=== PATIENT | male | born 1995 | race Caucasian/White ===

== ENCOUNTER → 2018-11-12 | Outpatient (CLI) | payer OTHER ==
--- NOTE | 2018-11-12 13:28 | XR ---
EXAMINATION TYPE: XR facial bones complete DATE OF EXAM: 11/12/2018 COMPARISON: NONE HISTORY: 23-year-old male with facial pain from fall G50.1/M25.521 TECHNIQUE: 3 views FINDINGS: Orbits appear symmetric. Minimal leftward deviation of the nasal septum. The frontal, ethmoid, spheno id sinuses appear well-pneumatized. No layering fluid within the maxillary sinuses. Mandible appears intact. No nasal bone fracture seen on the left lateral view. IMPRESSION: No radiographically apparent acute facial bone fracture. If persistent clinical concern, CT facial gigi jocy can be considered.
--- NOTE | 2018-11-12 13:38 | XR ---
EXAMINATION TYPE: XR Hip Complete LT DATE OF EXAM: 11/12/2018 COMPARISON: 01/17/2015 HISTORY: 23-year-old male left hip pain after fall 2 days ago TECHNIQUE: 2 views FINDINGS: End-stage degenerative change at the left hip with flattening of the femoral head. Physical fixation across the intertrochanteric region and femoral neck is unchanged from 01/17/2015. No acute fracture is seen. IMPRESSION: End-stage left hip OA, unchanged from 01/09/2015. Redemonstrated collapse of the femoral head and 2 i ndwelling fixation screws.
== END | disposition home or self-care (01) ==
LOC: RADXRMAIN 10:13
PROVIDERS: ATTEND Physician Assistant
DX: M16.12 Unilateral primary osteoarthritis, left hip (principal); G50.1 Atypical facial pain; Z98.890 Other specified postprocedural states
CPT/HCPCS: 70150; 73502

== ENCOUNTER 2019-04-15 23:18 | Emergency (ER) | payer OTHER ==
[2019-04-15 23:25] VITALS: BP 131/88; PULSE 95; RESP 18; TEMP 98.2
--- NOTE | 2019-04-16 01:39 | XR ---
EXAMINATION TYPE: XR pelvis AP view DATE OF EXAM: 04/16/2019 COMPARISON: 11/12/2018 HISTORY: Hip pain TECHNIQUE: Single view FINDINGS: Pelvic ring is intact. There is deformity of the left femoral head with shallow acetabulum consistent with old hip dysplasia. Sacroiliac joints appear normal. I see no acute fracture. There is been removal of 2 pins in the intertrochanteric femur compared to last exam. IMPRESSION: Previous surgery. Old left-sided hip dysplasia. Severe flattening of the left femoral hea d unchanged.
[2019-04-16 02:16] LABS: Amphetamine Screen,Urine Not Detected (NotDetected); Barbiturate Screen,Urine Not Detected (NotDetected); Benzodiazepines Screen,Urine Detected (NotDetected); Cocaine Screen,Urine Not Detected (NotDetected); Methadone Screen, Urine Not Detected (NotDetected); Opiate Screen,Urine Not Detected (NotDetected); Oxycodone Screen, Urine Not Detected (NotDetected); Phencyclidine Screen,Urine Not Detected (NotDetected); Tricyclic Antidepressant,Urine Not Detected (NotDetected); Urn Cannabinoid Scrn Not Detected (NotDetected)
--- NOTE | 2019-04-16 04:07 | ED ---
Psych HPI - General Chief Complaint: Psychiatric Symptoms Stated Complaint: Mental Health Time Seen by Provider: 04/15/19 23:47 Source: patient, police Mode of arrival: ambulatory - History of Present Illness Initial Comments: Patient is 23-year-old man brought to have psychiatric evaluation. The patient reportedly had made some suicidal statements. At my evaluation, he is not forthcoming at all, refusing to discuss the events that have resulted in him being here. MD Complaint: suicidal ideation -: hour(s) Context: recent alcohol abuse - Related Data Home Medications Medication Instructions Recorded Confirmed Mirtazapine [Remeron] 30 mg PO HS 01/17/15 01/17/15 Previous Rx's Medication Instructions Recorded HYDROcodone/APAP 5-325MG [[place] 1 each PO Q6HR PRN #20 tab 01/17/15 5-325] Allergies Allergy/AdvReac Type Severity Reaction Status Date / Time adhesive tape Allergy Rash/Hives Verified 04/15/19 23:26 Review of Systems ROS Statement: Those systems with pertinent positive or pertinent negative responses have been documented in the HPI. ROS Other: All systems not noted in ROS Statement are negative. Limitations: ROS unobtainable due to patients medical condition (Patient uncooperative with history of physical) Constitutional: Denies: fever Respiratory: Denies: cough, dyspnea Cardiovascular: Denies: chest pain Gastrointestinal: Denies: abdominal pain, vomiting Musculoskeletal: Denies: back pain Neurological: Denies: headache Psychiatric: Reports: as per HPI, suicidal thoughts Past Medical History Additional Past Medical History / Comment(s): Pirthise disease Left hip History of Any Multi-Drug Resistant Organisms: None Reported Additional Past Surgical History / Comment(s): left hip Past Psychological History: Depression Smoking Status: Current every day smoker Past Alcohol Use History: Occasional Past Drug Use History: None Reported General Exam Limitations: no limitations General appearance: alert, in no apparent distress Head exam: Present: atraumatic, normocephalic Respiratory exam: Present: normal lung sounds bilaterally. Absent: respiratory distress, wheezes, rales, rhonchi, stridor Cardiovascular Exam: Present: regular rate, normal rhythm, normal heart sounds. Absent: systolic murmur, diastolic murmur, rubs, gallop GI/Abdominal exam: Present: soft. Absent: distended, tenderness, guarding, rebound, rigid, mass Extremities exam: Present: normal inspection, normal capillary refill Neurological exam: Present: alert, normal gait Psychiatric exam: Present: other (Patient is not cooperative with the psychiatric exam) Skin exam: Present: warm, dry, intact, normal color. Absent: rash Course Vital Signs 04/15/19 23:21 Temperature 98.2 F Pulse Rate 95 Respiratory 18 Rate Blood Pressure 131/88 O2 Sat by Pulse 99 Oximetry Procedures - Restraint - Face to Face Restraint Occurrence 1 Patient's Immediate Situation: Endangers self safety Patient's Reaction to the Intervention: Uncooperative, Angry, Suspicious Patient's Medical & Behavioral Condition: Awake, Alert, Agitated, Suicidal thoughts Need to Continue or Terminate Restraint or Seclusion: Continue Face to Face Eval of Restraint Date: 04/16/19 Face to Face Eval of Restraint Time: :25 Medical Decision Making - Medical Decision Making As the patient became sober he was more forthcoming and participating in the history and physical with the EPS nurse. Patient is luis miguel for safety and will return here should his mood worse. Denying suicidality. - Lab Data Lab Results 04/16/19 Range/Units 01:45 Urine Opiates Screen Not Detected (NotDetected) Ur Oxycodone Screen Not Detected (NotDetected) Urine Methadone Screen Not Detected (NotDetected) Ur Propoxyphene Screen Not Detected (NotDetected) Ur Barbiturates Screen Not Detected (NotDetected) U Tricyclic Antidepress Not Detected (NotDetected) Ur Phencyclidine Scrn Not Detected (NotDetected) Ur Amphetamines Screen Not Detected (NotDetected) U Methamphetamines Scrn Not Detected (NotDetected) U Benzodiazepines Scrn Detected H (NotDetected) Urine Cocaine Screen Not Detected (NotDetected) U Marijuana (THC) Screen Not Detected (NotDetected) Disposition Clinical Impression: Alcohol intoxication, Mood disorder Disposition: HOME SELF-CARE Condition: Good Instructions (If sedation given, give patient instructions): Mood Disorders (ED) Is patient prescribed a controlled substance at d/c from ED?: No Referrals: Louie Lyle Jr, DO [Primary Care Provider] - 1-2 days
[2019-04-16] MEDS ORDERED: clonazePAM 0.5 MG TAB PO STA (05:04)
== END 2019-04-16 05:48 | disposition home or self-care (01) ==
LOC: EC 23:18
DX: F10.129 Alcohol abuse with intoxication, unspecified (principal); F32.9 Major depressive disorder, single episode, unspecified; R45.1 Restlessness and agitation; R45.851 Suicidal ideations; F17.200 Nicotine dependence, unspecified, uncomplicated; Z91.048 Other nonmedicinal substance allergy status; Z79.899 Other long term (current) drug therapy
CPT/HCPCS: 72170; 80306; 82075; 99285

== ENCOUNTER → 2019-04-22 | Outpatient (CLI) | payer BC ==
--- NOTE | 2019-04-22 13:08 | XR ---
EXAMINATION TYPE: XR Hip Complete LT DATE OF EXAM: 04/22/2019 CLINICAL HISTORY: Left hip pain TECHNIQUE: AP and frogleg views of the left hip are obtained. COMPARISON: 04/16/2019. FINDINGS: There is deformity of the left femoral head with flattening and protuberant osteophyte form ation. Osteophytes are seen of the lateral femoral head neck junction, femoral head and greater troch anter. There is remodeling of the acetabulum and its roof and medial joint space narrowing. There is cephalad subluxation of the left hip. IMPRESSION: Extensive arthropathy of the left hip that could relate to avascular necrosis, early dege nerative arthropathy, trauma, or congenital causes. There is also cranial subluxation of the left fem oral acetabular joint. Findings are similar to the prior exam.
== END | disposition home or self-care (01) ==
LOC: RADXRMAIN 12:35
PROVIDERS: ATTEND Nurse Practitioner Family
DX: M16.12 Unilateral primary osteoarthritis, left hip (principal); S73.002A Unspecified subluxation of left hip, initial encounter
CPT/HCPCS: 73502

== ENCOUNTER → 2019-07-31 | Outpatient (CLI) | payer BC, OTHER ==
[2019-07-31 14:03] LABS: Basophils # (A) 0.1 k/uL (0-0.2); Basophils % (A) 1 %; Eosinophils # (A) 0.2 k/uL (0-0.7); Eosinophils % (A) 2 %; HCT 43.9 % (39.0-53.0); HGB 13.9 gm/dL (13.0-17.5); Lymphocytes # (A) 1.8 k/uL (1.0-4.8); Lymphocytes % (A) 24 %; MCH 29.1 pg (25.0-35.0); MCHC 31.6 g/dL (31.0-37.0); MCV 92.3 fL (80.0-100.0); Mean Platelet Volume 7.4; Monocytes # (A) 0.3 k/uL (0-1.0); Monocytes % (A) 4 %; Neutrophils % (A) 67 %; Platelet Count 329 k/uL (150-450); RBC 4.76 m/uL (4.30-5.90); RDW 12.8 % (11.5-15.5); WBC 7.4 k/uL (3.8-10.6)
[2019-07-31 22:43] LABS: African American GFR (CKD) 143.9 (60.0-200.0); Albumin 4.5 g/dL (3.80-4.90); Anion Gap 5.6 mmol/L (4.00-12.00); BUN/Creat Ratio 13.75 Ratio (12.00-20.00); Calcium 9.5 mg/dL (8.7-10.3); Carbon Dioxide 27.4 mmol/L (21.6-31.8); Non-African American GFR(CKD) 124.2 (60.0-200.0); Potassium 4.6 mmol/L (3.5-5.5)
[2019-08-01 04:40] LABS: Hemoglobin A1C 5.4 % (4.0-6.0)
== END | disposition home or self-care (01) ==
LOC: LABWHC1 12:49
PROVIDERS: ATTEND Orthopaedic Surgery
DX: Z01.818 Encounter for other preprocedural examination (principal); Z13.1 Encounter for screening for diabetes mellitus; M12.9 Arthropathy, unspecified; E55.9 Vitamin D deficiency, unspecified; D64.9 Anemia, unspecified
CPT/HCPCS: 36415; 80048; 82040; 82652; 83036; 85025; 87070

== ENCOUNTER 2020-09-13 13:15 | Emergency (ER) | payer BC, MEDICAID, OTHER ==
[2020-09-13 13:22] VITALS: TEMP 98.3
[2020-09-13] MEDS ORDERED: SODIUM CHLORIDE 0.9% 1,000 ML IV STA (13:29)
[2020-09-13] MEDS ORDERED: LORazepam 2 MG/ML INJ IV PRN ×3 (13:42)
[2020-09-13] MEDS ORDERED: THIAMINE 100 MG/ML 2 ML VIAL IM STA (13:42)
[2020-09-13 13:58] LABS: Basophils # (A) 0.1 k/uL (0-0.2); Basophils % (A) 1 %; Eosinophils % (A) 1 %; HCT 48.1 % (39.0-53.0); HGB 16.7 gm/dL (13.0-17.5); Lymphocytes # (A) 0.4 k/uL (1.0-4.8); Lymphocytes % (A) 7 %; MCH 33.6 pg (25.0-35.0); MCHC 34.7 g/dL (31.0-37.0); MCV 96.7 fL (80.0-100.0); Mean Platelet Volume 9.6; Monocytes # (A) 0.3 k/uL (0-1.0); Monocytes % (A) 5 %; Neutrophils # (A) 5.6 k/uL (1.3-7.7); Neutrophils % (A) 86 %; RBC 4.97 m/uL (4.30-5.90); RDW 12.7 % (11.5-15.5); WBC 6.4 k/uL (3.8-10.6)
[2020-09-13] MEDS: THIAMINE 100 MG TAB PO SCH ×2 (13:59→14:01)
[2020-09-13 14:10] VITALS: RESP 20
[2020-09-13 14:13] LABS: ALT 283 U/L (4-49); Acetaminophen <10.0 ug/mL; African American GFR (CKD) >90 (>60 ml/min/1.73 sqM); Albumin 5.1 g/dL (3.5-5.0); Alkaline Phosphatase 119 U/L (38-126); Anion Gap 16 mmol/L; Blood Urea Nitrogen 8 mg/dL (9-20); Calcium 10.4 mg/dL (8.4-10.2); Carbon Dioxide 27 mmol/L (22-30); Chloride 91 mmol/L (98-107); Glucose 144 mg/dL (74-99); Non-African American GFR(CKD) >90 (>60 ml/min/1.73 sqM); Potassium 3.7 mmol/L (3.5-5.1); Salicylate <1.0 mg/dL; Sodium 134 mmol/L (137-145); Total Bilirubin 2.6 mg/dL (0.2-1.3); Total Protein 8.1 g/dL (6.3-8.2)
[2020-09-13 14:17] LABS: Amorphous Sediment,Urine Rare /hpf; Appearance,Urine Turbid (Clear); Bilirubin,Urine 1+ (Negative); Blood,Urine Small (Negative); Color,Urine Dark Brown; Glucose,Urine (UA) Negative (Negative); Granular Casts,Urine 5 /lpf (0); Hyaline Casts,Urine 24 /lpf (0-2); Ketones,Urine 2+ (Negative); Leukocyte Esterase,Urine Negative (Negative); Mucus,Urine Many /hpf; Nitrite,Urine Negative (Negative); Protein,Urine 3+ (Negative); RBC,Urine 7 /hpf (0-5); Specific Gravity,Urine 1.027 (1.001-1.035); Squamous Epithelial Cell,Urine 1 /hpf (0-4); Urobilinogen,Urine >12.0 mg/dL (<2.0); WBC,Urine 4 /hpf (0-5)
[2020-09-13 14:22] LABS: Amphetamine Screen,Urine Not Detected (NotDetected); Barbiturate Screen,Urine Not Detected (NotDetected); Benzodiazepines Screen,Urine Not Detected (NotDetected); Cocaine Screen,Urine Not Detected (NotDetected); Methadone Screen, Urine Not Detected (NotDetected); Opiate Screen,Urine Not Detected (NotDetected); Oxycodone Screen, Urine Not Detected (NotDetected); Phencyclidine Screen,Urine Not Detected (NotDetected); Tricyclic Antidepressant,Urine Not Detected (NotDetected); Urn Cannabinoid Scrn Detected (NotDetected)
[2020-09-13 14:25] LABS: AST 804 U/L (17-59)
[2020-09-13] MEDS ORDERED: LORazepam 2 MG/ML INJ IV STA (14:29)
[2020-09-13 14:31] LABS: Platelet Count 93 k/uL (150-450)
[2020-09-13] MEDS ORDERED: levETIRAcetam IV 1,000 MG in SALINE 1 100ML.BAG IVPB STA (14:40)
--- NOTE | 2020-09-13 15:16 | CT ---
EXAMINATION TYPE: CT brain wo con DATE OF EXAM: 09/13/2020 COMPARISON: None HISTORY: Seizure activity. CT DLP: 1115.[address] of the brain was performed. The ventricles, basal cisterns and sulci overlying the cerebral convexities demonstrate a normal appe arance. There is no evidence for intracranial hemorrhage or sulcal effacement. No mass effects are seen. Osseous calvarium is intact. If symptoms persist consider MRI as clinically warranted. IMPRESSION: 1. No acute intracranial process is seen at this time.
--- NOTE | 2020-09-13 15:43 | ED ---
Seizure HPI - General Chief Complaint: Seizure Stated Complaint: seizure Time Seen by Provider: 09/13/20 13:24 Source: patient, RN notes reviewed Mode of arrival: ambulatory Limitations: no limitations - History of Present Illness Initial Comments: Patient is a 25-year-old male that presented to the emergency department status post new-onset seizure. He notes his girlfriend witnessed him having full body shakes loss of consciousness. He did note that he was foggy for several minutes after coming to. He notes that he is an alcoholic and drinks approximately a pint to a fifth of alcohol per day. He denied any history of seizures or intracranial issues. He was otherwise a well-appearing 25-year-old male in no apparent distress or pain. He denied any chest pain short of breath headache nausea vomiting diarrhea constipation fever fatigue chills. - Related Data Previous Rx's Medication Instructions Recorded levETIRAcetam [Keppra Xr] 500 mg PO DAILY 7 Days #7 tab 09/13/20 Allergies Allergy/AdvReac Type Severity Reaction Status Date / Time adhesive tape Allergy Rash/Hives Verified 09/13/20 14:01 Review of Systems ROS Statement: Those systems with pertinent positive or pertinent negative responses have been documented in the HPI. ROS Other: All systems not noted in ROS Statement are negative. Past Medical History Additional Past Medical History / Comment(s): Pirthise disease Left hip History of Any Multi-Drug Resistant Organisms: None Reported Additional Past Surgical History / Comment(s): left hip Past Psychological History: Depression Smoking Status: Current every day smoker Past Alcohol Use History: Abuse, Daily Past Drug Use History: None Reported General Exam Limitations: no limitations General appearance: alert, in no apparent distress Head exam: Present: atraumatic, normocephalic, normal inspection Eye exam: Present: normal appearance, PERRL, EOMI. Absent: scleral icterus, conjunctival injection, periorbital swelling Neck exam: Present: normal inspection Respiratory exam: Present: normal lung sounds bilaterally. Absent: respiratory distress, wheezes, rales, rhonchi, stridor Cardiovascular Exam: Present: regular rate, normal rhythm, normal heart sounds. Absent: systolic murmur, diastolic murmur, rubs, gallop, clicks GI/Abdominal exam: Present: soft, normal bowel sounds. Absent: distended, tenderness, guarding, rebound, rigid Extremities exam: Present: normal inspection, full ROM, normal capillary refill. Absent: tenderness, pedal edema, joint swelling, calf tenderness Neurological exam: Present: alert, oriented X3 Psychiatric exam: Present: normal affect, normal mood Skin exam: Present: warm, dry, intact, normal color. Absent: rash Course Vital Signs 09/13/20 09/13/20 09/13/20 13:18 14:10 15:33 Temperature 98.3 F Pulse Rate 117 H 77 113 H Respiratory 16 20 20 Rate Blood Pressure 155/116 146/108 145/97 O2 Sat by Pulse 97 99 98 Oximetry Medical Decision Making - Medical Decision Making 25-year-old male with new onset seizure with a history of alcoholism. Labs, CT of the brain, EKG, cardiac exercise specialist, CIWA scale, Ativan per all withdrawal protocol ordered. Labs: Elevated glucose, elevated liver function, AST 804, AST 283 Urinalysis negative. Urine drug screen positive for THC. Patient did have a witnessed seizure and emergency department Ativan was given, 1000 mg of Keppra ordered. Case discussed with Dr. Mora, who said to consult Dr. Lyle to figure out if admission versus discharge. Dr. Lyle was consulted and stated that he will follow up with patient tomorrow in office and to start patient on 500 mg of Keppra. Covid test ordered per dad's request due to mom having cancer and going to chemoradiation. Covid negative. - Lab Data Result diagrams: 09/13/20 13:36 09/13/20 13:36 Lab Results 09/13/20 09/13/20 09/13/20 Range/Units 13:36 13:36 13:36 WBC 6.4 (3.8-10.6) k/uL RBC 4.97 (4.30-5.90) m/uL Hgb 16.7 (13.0-17.5) gm/dL Hct 48.1 (39.0-53.0) % MCV 96.7 (80.0-100.0) fL MCH 33.6 (25.0-35.0) pg MCHC 34.7 (31.0-37.0) g/dL RDW 12.7 (11.5-15.5) % Plt Count 93 L (150-450) k/uL MPV 9.6 Neutrophils % 86 % Lymphocytes % 7 % Monocytes % 5 % Eosinophils % 1 % Basophils % 1 % Neutrophils # 5.6 (1.3-7.7) k/uL Lymphocytes # 0.4 L (1.0-4.8) k/uL Monocytes # 0.3 (0-1.0) k/uL Eosinophils # 0.0 (0-0.7) k/uL Basophils # 0.1 (0-0.2) k/uL Manual Slide Review Performed RBC Morphology Normal Sodium 134 L (137-145) mmol/L Potassium 3.7 (3.5-5.1) mmol/L Chloride 91 L (98-107) mmol/L Carbon Dioxide 27 (22-30) mmol/L Anion Gap 16 mmol/L BUN 8 L (9-20) mg/dL Creatinine 0.72 (0.66-1.25) mg/dL Est GFR (CKD-EPI)AfAm >90 (>60 ml/min/1.73 sqM) Est GFR (CKD-EPI)NonAf >90 (>60 ml/min/1.73 sqM) Glucose 144 H (74-99) mg/dL Calcium 10.4 H (8.4-10.2) mg/dL Magnesium (1.6-2.3) mg/dL Total Bilirubin 2.6 H (0.2-1.3) mg/dL AST 804 H (17-59) U/L ALT 283 H (4-49) U/L Alkaline Phosphatase 119 (38-126) U/L Creatine Kinase (55-170) U/L Total Protein 8.1 (6.3-8.2) g/dL Albumin 5.1 H (3.5-5.0) g/dL Urine Color Dark Brown Urine Appearance Turbid (Clear) Urine pH 7.0 (5.0-8.0) Ur Specific [place] 1.027 (1.001-1.035) Urine Protein 3+ H (Negative) Urine Glucose (UA) Negative (Negative) Urine Ketones 2+ H (Negative) Urine Blood Small H (Negative) Urine Nitrite Negative (Negative) Urine Bilirubin 1+ H (Negative) Urine Urobilinogen >12.0 (<2.0) mg/dL Ur Leukocyte Esterase Negative (Negative) Urine RBC 7 H (0-5) /hpf Urine WBC 4 (0-5) /hpf Ur Squamous Epith Cells 1 (0-4) /hpf Amorphous Sediment Rare H (None) /hpf Hyaline Casts 24 H (0-2) /lpf Granular Casts 5 (0) /lpf Urine Mucus Many H (None) /hpf Salicylates <1.0 mg/dL Urine Opiates Screen Not Detected (NotDetected) Ur Oxycodone Screen Not Detected (NotDetected) Urine Methadone Screen Not Detected (NotDetected) Ur Propoxyphene Screen Not Detected (NotDetected) Acetaminophen <10.0 ug/mL Ur Barbiturates Screen Not Detected (NotDetected) U Tricyclic Antidepress Not Detected (NotDetected) Ur Phencyclidine Scrn Not Detected (NotDetected) Ur Amphetamines Screen Not Detected (NotDetected) U Methamphetamines Scrn Not Detected (NotDetected) U Benzodiazepines Scrn Not Detected (NotDetected) Urine Cocaine Screen Not Detected (NotDetected) U Marijuana (THC) Screen Detected H (NotDetected) Coronavirus (PCR) (Not Detectd) 09/13/20 09/13/20 Range/Units 13:36 16:20 WBC (3.8-10.6) k/uL RBC (4.30-5.90) m/uL Hgb (13.0-17.5) gm/dL Hct (39.0-53.0) % MCV (80.0-100.0) fL MCH (25.0-35.0) pg MCHC (31.0-37.0) g/dL RDW (11.5-15.5) % Plt Count (150-450) k/uL MPV Neutrophils % % Lymphocytes % % Monocytes % % Eosinophils % % Basophils % % Neutrophils # (1.3-7.7) k/uL Lymphocytes # (1.0-4.8) k/uL Monocytes # (0-1.0) k/uL Eosinophils # (0-0.7) k/uL Basophils # (0-0.2) k/uL Manual Slide Review RBC Morphology Sodium (137-145) mmol/L Potassium (3.5-5.1) mmol/L Chloride (98-107) mmol/L Carbon Dioxide (22-30) mmol/L Anion Gap mmol/L BUN (9-20) mg/dL Creatinine (0.66-1.25) mg/dL Est GFR (CKD-EPI)AfAm (>60 ml/min/1.73 sqM) Est GFR (CKD-EPI)NonAf (>60 ml/min/1.73 sqM) Glucose (74-99) mg/dL Calcium (8.4-10.2) mg/dL Magnesium 1.9 (1.6-2.3) mg/dL Total Bilirubin (0.2-1.3) mg/dL AST (17-59) U/L ALT (4-49) U/L Alkaline Phosphatase (38-126) U/L Creatine Kinase 100 (55-170) U/L Total Protein (6.3-8.2) g/dL Albumin (3.5-5.0) g/dL Urine Color Urine Appearance (Clear) Urine pH (5.0-8.0) Ur Specific [place] (1.001-1.035) Urine Protein (Negative) Urine Glucose (UA) (Negative) Urine Ketones (Negative) Urine Blood (Negative) Urine Nitrite (Negative) Urine Bilirubin (Negative) Urine Urobilinogen (<2.0) mg/dL Ur Leukocyte Esterase (Negative) Urine RBC (0-5) /hpf Urine WBC (0-5) /hpf Ur Squamous Epith Cells (0-4) /hpf Amorphous Sediment (None) /hpf Hyaline Casts (0-2) /lpf Granular Casts (0) /lpf Urine Mucus (None) /hpf Salicylates mg/dL Urine Opiates Screen (NotDetected) Ur Oxycodone Screen (NotDetected) Urine Methadone Screen (NotDetected) Ur Propoxyphene Screen (NotDetected) Acetaminophen ug/mL Ur Barbiturates Screen (NotDetected) U Tricyclic Antidepress (NotDetected) Ur Phencyclidine Scrn (NotDetected) Ur Amphetamines Screen (NotDetected) U Methamphetamines Scrn (NotDetected) U Benzodiazepines Scrn (NotDetected) Urine Cocaine Screen (NotDetected) U Marijuana (THC) Screen (NotDetected) Coronavirus (PCR) Not Detected (Not Detectd) - EKG Data -: EKG Interpreted by Me EKG shows normal: sinus rhythm Rate: normal EKG Comments: Ventricular rate 99 bpm, ND interval 144 ms, QRS duration 106 ms, QTC 467 ms, PRT axes 78/48/47. Normal sinus rhythm, normal ECG. - Radiology Data Radiology results: report reviewed, image reviewed CT of the brain: No acute intracranial process is seen at this time. Disposition Clinical Impression: New onset seizure Disposition: HOME SELF-CARE Condition: Stable Instructions (If sedation given, give patient instructions): Seizure/Epilepsy Discharge Instructions & Follow-Up Additional Instructions: Please return to the Emergency Department if symptoms worsen or any other concerns. Follow-up with primary care tomorrow. Take Keppra as prescribed. Patient is Covid negative. Prescriptions: levETIRAcetam [Keppra Xr] 500 mg PO DAILY 7 Days #7 tab Is patient prescribed a controlled substance at d/c from ED?: No Referrals: Hiro Snyder MD [Primary Care Provider] - 1-2 days Time of Disposition: 16:58
[2020-09-13 15:45] LABS: Magnesium 1.9 mg/dL (1.6-2.3)
[2020-09-13 17:12] VITALS: BP 139/102; PULSE 98
== END 2020-09-13 17:10 | disposition home or self-care (01) ==
LOC: EC 13:15 → 3MHU 16:05 → UNDOADMIN 16:05 → EC 17:10
DX: R56.9 Unspecified convulsions (principal); F17.200 Nicotine dependence, unspecified, uncomplicated
CPT/HCPCS: 36415; 93005; 80053; 82550; 83735; 85025; 81001; 80306; 80143; 87635; 80179; 70450; 96365; 96375; 96361; 99285; J2060; J1953

== ENCOUNTER 2021-02-26 02:19 | Inpatient (IN) | payer BC, OTHER ==
[2021-02-26] MEDS ORDERED: SODIUM CHLORIDE 0.9% 1,000 ML IV STA ×2 (02:32)
[2021-02-26] MEDS ORDERED: LORazepam 2 MG/ML INJ IV STA ×2 (02:32→04:03)
[2021-02-26] MEDS ORDERED: SODIUM CHLORIDE 0.9% 500 ML 500 ML IV STA (02:32)
--- NOTE | 2021-02-26 03:09 | ED ---
Alcohol HPI - General Chief Complaint: Alcohol Stated Complaint: Alcohol Withdrawal Time Seen by Provider: 02/26/21 02:32 Source: patient, family, RN notes reviewed, old records reviewed Mode of arrival: ambulatory Limitations: physical limitation - History of Present Illness Initial Comments: This is a 25-year-old male to the emergency room today. Patient is significantly fell. Patient is positive with shaking delirium tremors altered mental status poor story presents with father for significant alcohol withdrawal MD Complaint: alcohol withdrawal Last Drink: unknown (4) -: days(s) (4) Previous Visits for Alcohol Intoxication?: Yes Recent Trauma: No Associated Symptoms: diaphoresis, tremors, depression Treatments Prior to Arrival: none Chronic Alcohol Use: Yes - Related Data Home Medications Medication Instructions Recorded Confirmed No Known Home Medications 02/26/21 02/26/21 Allergies Allergy/AdvReac Type Severity Reaction Status Date / Time adhesive tape Allergy Rash/Hives Verified 02/26/21 08:25 Review of Systems ROS Statement: Those systems with pertinent positive or pertinent negative responses have been documented in the HPI. ROS Other: All systems not noted in ROS Statement are negative. Past Medical History Additional Past Medical History / Comment(s): Pirthise disease Left hip History of Any Multi-Drug Resistant Organisms: None Reported Past Surgical History: Hernia Repair Additional Past Surgical History / Comment(s): left hip Past Psychological History: Depression Smoking Status: Current every day smoker Past Alcohol Use History: Abuse, Daily Past Drug Use History: None Reported, Marijuana - Past Family History Father Family Medical History: Coronary Artery Disease (CAD) Mother Family Medical History: Cancer General Exam Limitations: altered mental status, physical limitation General appearance: alert, anxious, in distress Head exam: Present: atraumatic, normocephalic, normal inspection Eye exam: Present: normal appearance, PERRL, EOMI. Absent: scleral icterus, conjunctival injection, periorbital swelling ENT exam: Present: normal exam, mucous membranes moist Neck exam: Present: normal inspection. Absent: tenderness, meningismus, lymphadenopathy Respiratory exam: Present: normal lung sounds bilaterally. Absent: respiratory distress, wheezes, rales, rhonchi, stridor Cardiovascular Exam: Present: normal rhythm, tachycardia, normal heart sounds. Absent: systolic murmur, diastolic murmur, rubs, gallop, clicks GI/Abdominal exam: Present: soft, normal bowel sounds. Absent: distended, tenderness, guarding, rebound, rigid Extremities exam: Present: normal inspection, full ROM, normal capillary refill. Absent: tenderness, pedal edema, joint swelling, calf tenderness Back exam: Present: normal inspection Neurological exam: Present: alert, oriented X3, CN II-XII intact Psychiatric exam: Present: normal affect, normal mood Skin exam: Present: warm, dry, intact, normal color. Absent: rash Course Vital Signs 02/26/21 02/26/21 02/26/21 02:22 02:57 04:17 Temperature 99.2 F Pulse Rate 120 H 95 89 Pulse Rate [ Pulse Oximetery ] Respiratory 18 22 18 Rate Blood Pressure 167/108 156/106 139/109 Blood Pressure [Left Arm] O2 Sat by Pulse 98 95 95 Oximetry 02/26/21 02/26/21 02/26/21 05:54 07:36 08:00 Temperature 98.0 F Pulse Rate 103 H 96 Pulse Rate [ 97 Pulse Oximetery ] Respiratory 18 18 18 Rate Blood Pressure 152/117 138/93 Blood Pressure 140/90 [Left Arm] O2 Sat by Pulse 95 97 98 Oximetry 02/26/21 08:40 Temperature Pulse Rate 82 Pulse Rate [ Pulse Oximetery ] Respiratory 18 Rate Blood Pressure 139/98 Blood Pressure [Left Arm] O2 Sat by Pulse 98 Oximetry - Reevaluation(s) Reevaluation #1: Medical record is reviewed Patient symptoms are not significant improved Patient having escalating symptoms of withdrawal here in the ER requiring medication Patient informed of results and questions answered Medical Decision Making - Medical Decision Making 25 male with significant alcohol withdrawal DTs, delirious shaking tremor, patient will be admitted for symptomatic treatment - Lab Data Result diagrams: 02/26/21 02:54 02/26/21 02:54 Lab Results 02/26/21 02/26/21 Range/Units 02:54 02:54 WBC 14.2 H (3.8-10.6) k/uL RBC 4.78 (4.30-5.90) m/uL Hgb 16.4 (13.0-17.5) gm/dL Hct 47.6 (39.0-53.0) % MCV 99.6 (80.0-100.0) fL MCH 34.4 (25.0-35.0) pg MCHC 34.6 (31.0-37.0) g/dL RDW 14.8 (11.5-15.5) % Plt Count 214 (150-450) k/uL MPV 8.9 Neutrophils % 76 % Lymphocytes % 17 % Monocytes % 5 % Eosinophils % 0 % Basophils % 0 % Neutrophils # 10.8 H (1.3-7.7) k/uL Lymphocytes # 2.4 (1.0-4.8) k/uL Monocytes # 0.7 (0-1.0) k/uL Eosinophils # 0.1 (0-0.7) k/uL Basophils # 0.1 (0-0.2) k/uL Macrocytosis Slight Sodium 133 L (137-145) mmol/L Potassium 3.4 L (3.5-5.1) mmol/L Chloride 98 (98-107) mmol/L Carbon Dioxide 23 (22-30) mmol/L Anion Gap 12 mmol/L BUN 11 (9-20) mg/dL Creatinine 0.70 (0.66-1.25) mg/dL Est GFR (CKD-EPI)AfAm >90 (>60 ml/min/1.73 sqM) Est GFR (CKD-EPI)NonAf >90 (>60 ml/min/1.73 sqM) Glucose 123 H (74-99) mg/dL Calcium 10.0 (8.4-10.2) mg/dL Magnesium 1.7 (1.6-2.3) mg/dL Total Bilirubin 1.0 (0.2-1.3) mg/dL AST 117 H (17-59) U/L ALT 67 H (4-49) U/L Alkaline Phosphatase 67 (38-126) U/L Total Protein 7.8 (6.3-8.2) g/dL Albumin 4.9 (3.5-5.0) g/dL Lipase 457 H (23-300) U/L Serum Alcohol <10 mg/dL Critical Care Time Critical Care Time: Yes Total Critical Care Time: 31 Disposition Clinical Impression: Alcohol withdrawal delirium, Hypomagnesemia, Alcohol withdrawal syndrome Disposition: ADMITTED IP TO THIS [facility] Condition: Serious Is patient prescribed a controlled substance at d/c from ED?: No
[2021-02-26 03:32] LABS: Basophils # (A) 0.1 k/uL (0-0.2); Basophils % (A) 0 %; Eosinophils # (A) 0.1 k/uL (0-0.7); Eosinophils % (A) 0 %; HCT 47.6 % (39.0-53.0); HGB 16.4 gm/dL (13.0-17.5); Lymphocytes # (A) 2.4 k/uL (1.0-4.8); Lymphocytes % (A) 17 %; MCH 34.4 pg (25.0-35.0); MCHC 34.6 g/dL (31.0-37.0); MCV 99.6 fL (80.0-100.0); Macrocytosis Slight; Mean Platelet Volume 8.9; Monocytes # (A) 0.7 k/uL (0-1.0); Monocytes % (A) 5 %; Neutrophils # (A) 10.8 k/uL (1.3-7.7); Neutrophils % (A) 76 %; Platelet Count 214 k/uL (150-450); RBC 4.78 m/uL (4.30-5.90); RDW 14.8 % (11.5-15.5); WBC 14.2 k/uL (3.8-10.6)
[2021-02-26 04:00] LABS: ALT 67 U/L (4-49); AST 117 U/L (17-59); African American GFR (CKD) >90 (>60 ml/min/1.73 sqM); Albumin 4.9 g/dL (3.5-5.0); Alcohol <10 mg/dL; Alkaline Phosphatase 67 U/L (38-126); Anion Gap 12 mmol/L; Blood Urea Nitrogen 11 mg/dL (9-20); Carbon Dioxide 23 mmol/L (22-30); Chloride 98 mmol/L (98-107); Glucose 123 mg/dL (74-99); Lipase 457 U/L (23-300); Magnesium 1.7 mg/dL (1.6-2.3); Non-African American GFR(CKD) >90 (>60 ml/min/1.73 sqM); Potassium 3.4 mmol/L (3.5-5.1); Sodium 133 mmol/L (137-145); Total Protein 7.8 g/dL (6.3-8.2)
[2021-02-26] MEDS ORDERED: DIAZEPAM 5 MG/ML 2 ML INJ IVP STA (04:03)
[2021-02-26] MEDS ORDERED: DEXTROSE 5%-0.45% NACL 1,000 ML IV ONE (04:30)
[2021-02-26] MEDS ORDERED: MORPHINE SULFATE 4 MG/ML SYRINGE IV PRN (05:36)
[2021-02-26] MEDS ORDERED: THIAMINE 100 MG/ML 2 ML VIAL IM STA (05:36)
[2021-02-26] MEDS ORDERED: NALOXONE 0.4 MG/ML 1 ML VIAL IV PRN (05:36)
[2021-02-26] MEDS ORDERED: ONDANSETRON 4 MG/2 ML VIAL IVP PRN (05:36)
[2021-02-26] MEDS ORDERED: LORazepam 2 MG/ML INJ IV PRN (05:36)
[2021-02-26] MEDS: MAGNESIUM SULFATE-D5W PMX 1 GM in DEXTROSE/WATER 1 100ML.BAG IVPB SCH ×2 (05:47→10:37)
[2021-02-26] MEDS: POTASSIUM CHLORIDE 10 MEQ in WATER FOR INJECTION 1 100ML.BAG IVPB SCH ×5 (05:48→11:25)
[2021-02-26] MEDS: LORazepam 2 MG/ML INJ IV PRN ×14 (05:51→22:29)
[2021-02-26] MEDS: DIAZEPAM 5 MG/ML 2 ML INJ IVP SCH ×2 (07:30→12:14)
[2021-02-26 08:14] LABS: Appearance,Urine Clear (Clear); Bilirubin,Urine Negative (Negative); Blood,Urine Negative (Negative); Color,Urine Colorless; Glucose,Urine (UA) Negative (Negative); Ketones,Urine Negative (Negative); Leukocyte Esterase,Urine Negative (Negative); Nitrite,Urine Negative (Negative); Protein,Urine Negative (Negative); Specific Gravity,Urine 1.001 (1.001-1.035); Urobilinogen,Urine <2.0 mg/dL (<2.0)
[2021-02-26 08:24] LABS: Amphetamine Screen,Urine Not Detected (NotDetected); Barbiturate Screen,Urine Not Detected (NotDetected); Benzodiazepines Screen,Urine Not Detected (NotDetected); Cocaine Screen,Urine Not Detected (NotDetected); Methadone Screen, Urine Not Detected (NotDetected); Opiate Screen,Urine Not Detected (NotDetected); Oxycodone Screen, Urine Not Detected (NotDetected); Phencyclidine Screen,Urine Not Detected (NotDetected); Tricyclic Antidepressant,Urine Not Detected (NotDetected); Urn Cannabinoid Scrn Detected (NotDetected)
[2021-02-26] MEDS: NICOTINE 21MG/24HR PATCH TRANSDERM SCH (08:29)
[2021-02-26] MEDS: PANTOPRAZOLE 40 MG/10 ML VIAL IV SCH (10:37)
[2021-02-26] MEDS ORDERED: POTASSIUM CHLORIDE ER 20 MEQ TAB.ER PO STA (12:27)
--- NOTE | 2021-02-26 15:14 | P.HPIM ---
History of Present Illness H&P Date: 02/26/21 Chief Complaint: Active DTs The 25-year-old gentleman that presented to the ER with complaints of active DTs, positive night sweats,. States he is on Klonopin which he states is not helping him.Reports he drinks approximately 2 pints to 1-1/2 fifths of alcohol per day. Vague historian. Denies any syncope. Denies any lightheadedness dizziness or focal deficits. Lipase 457. Denies any nausea vomiting or diarrhea. Denies any abdominal pain. Denies any chest pain, palpitations or shortness of breath. Sodium 133, potassium 3.4, renal function stable, glucose 123 magnesium 0.7, total bili 1.0, AST 117, ALT 67 .Toxicology screen detected marijuana, serum alcohol less than 10 .Reports he also had a seizure while in the ER, ER report currently unavailable in EHR.received IV fluid hydration with CIWA protocol. Review of Systems ROS Statement: Those systems with pertinent positive or pertinent negative responses have been documented in the HPI. ROS Other: All systems not noted in ROS Statement are negative. 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 History of Any Multi-Drug Resistant Organisms: None Reported Past Surgical History: Hernia Repair, Joint Replacement, Orthopedic Surgery Additional Past Surgical History / Comment(s): Total L hip arthroplasty, multiple L hip surgeries, bilateral inguinal hernia repairs, nasal fracture with surgery. Past Anesthesia/Blood Transfusion Reactions: No Reported Reaction Smoking Status: Current every day smoker - Past Family History Father Family Medical History: Coronary Artery Disease (CAD) Mother Family Medical History: Cancer Medications and Allergies Home Medications Medication Instructions Recorded Confirmed Type No Known Home Medications 02/26/21 02/26/21 History Allergies Allergy/AdvReac Type Severity Reaction Status Date / Time adhesive tape Allergy Rash/Hives Verified 02/26/21 08:25 Physical Exam Vitals: Vital Signs Temp Pulse Pulse Resp BP BP Pulse Ox 02/26/21 09:30 131 H 18 02/26/21 08:40 82 18 139/98 98 02/26/21 08:00 98.0 F 97 18 140/90 98 02/26/21 07:36 96 18 138/93 97 02/26/21 05:54 103 H 18 152/117 95 02/26/21 04:17 89 18 139/109 95 02/26/21 02:57 95 22 156/106 95 02/26/21 02:22 99.2 F 120 H 18 167/108 98 Intake and Output 02/25/21 02/26/21 02/26/21 22:59 06:59 14:59 Other: Weight 134.6 kg 134.6 kg PHYSICAL EXAM: VITAL SIGNS: As above GENERAL: Sitting up in bed, active DTs, fidgety, tremors HEENT: Conjunctivae normal. eyes normal. Oral mucosa moist NECK: No JVD. No thyroid enlargement. No LNs CARDIOVASCULAR: S1, S2 regular.No murmur. RESPIRATION: Breath sounds diminished in the bases. No rhonchi or crackles. No b ronchial breathing. ABDOMEN: Soft, nontender. No guarding. no masses palpable.No ascites, No hepat osplenomegaly.Bowel sounds heard. LEGS: No edema. no swelling, no clubbing, no cyanosis. PSYCHIATRY: Alert and oriented X3, mood and affect normal. NERVOUS SYSTEM: Cranial N 2-12 grossly normal.Moves all 4 limbs.Diffuse tremors, pos. DTs. No focal deficits. Strength and sensation grossly intact. Skin: warm and dry, no rash Lymphatic system. No LN neck, axilla. Results CBC & Chem 7: 02/26/21 02:54 02/26/21 02:54 Labs: Abnormal Lab Results - Last 24 Hours (Table) 02/26/21 02/26/21 02/26/21 Range/Units 02:54 02:54 07:52 WBC 14.2 H (3.8-10.6) k/uL Neutrophils # 10.8 H (1.3-7.7) k/uL Sodium 133 L (137-145) mmol/L Potassium 3.4 L (3.5-5.1) mmol/L Glucose 123 H (74-99) mg/dL AST 117 H (17-59) U/L ALT 67 H (4-49) U/L Lipase 457 H (23-300) U/L U Marijuana (THC) Screen Detected H (NotDetected) Thrombosis Risk Factor Assmnt - Choose All That Apply Any of the Below Risk Factors Present?: Yes Each Factor Represents 1 point: Obesity (BMI >25) Other Risk Factors: No Other congenital or acquired thrombophilia - If yes, enter type in comment: No Thrombosis Risk Factor Assessment Total Risk Factor Score: 1 Thrombosis Risk Factor Assessment Level: Low Risk Assessment and Plan Assessment: Alcohol intoxication, DTs Reports seizure during the ER visit in a patient with History of Alcohol-induced seizures Alcohol dependence, on Klonopin Mood disorder Hyponatremia Hypokalemia Hypomagnesemia Plan: Continue on current medication regime ,monitoring and symptomatic treatment. CIWA protocol. Consider starting Naltrexone,psychiatry consult in place, recommendations pending. Prognosis guarded given multiple complex medical issues. The impression and plan of care has been dictated as directed. : I performed a history and examination of this patient, discussed the same with the dictator. I agree with the dictator's note ,documented as a scribe. Any additional findings or plans will be noted.
--- NOTE | 2021-02-26 15:17 | P.CN ---
Psychiatric Consult - . Consult date: 02/26/21 Consult:: 02/26/21 13:25 IDENTIFYING DATA: This patient is a 25-year-old male who is currently unemployed and lives with his girlfriend in a house has 1 kid REASON FOR REFERRAL: Psychiatry was consulted for alcohol use and withdrawal HISTORY OF PRESENT ILLNESS: The patient presented to the hospital initially for etoh w/d sx. Pt had elevated wbcs 14.2, sodium was at 133. AST and ALT was elevated at 117/67. Urine analysis was negative and UDS was positive for THC. Blood alcohol level was negative on admission. He was tachycardic on admission. Nurse taking care of patient claims that patient was started on valium and has been anxious and restless/pacing. Patient was seen today at the bedside and agreeable to speak with program writer. He appeared to be confused at times and intrusive aswell. He endorsed mild paranoia towards program writer and asked who invited him to his girlfriends house. He claims that he drinks "alot" approximately 1- 1.5 pints of vodka per day. He states that he was binge drinking for the past few months. He claims that his last drink was on monday and had a seizure early the next day. He claims that he has been struggling with etoh use since the age of 16. He claims that he has a hx of depression and anxiety and is mainly anxious at this time. He states that his sleep is poor and appetie is fair. He states that he does get confused at times and has been hallucinating, hearing voices and seeing visual disturbances in the room. He states that he has a hx of complicated w/d including seizures and tremors. At this time patient denies any suicidal or homical ideations, intent or plan. Patients admits to using etoh as noted above, smokes cannabis approx 1-2 joints/day and smokes cigarettes daily. PAST PSYCHIATRIC HISTORY: Patient has a a history of depression and anxiety along with etoh abuse. He states that he has tried prozac and zoloft in the past along with klonopin. Patient denies any previous psychiatric hospitalizations. He claims that he has seen several therapists and psychaitrists in the past and has also used to follow up with [facility]. Patient denies any history of suicide attempts in the past. PAST MEDICAL HISTORY: Pirthise disease Left hip ALLERGIES: as per EMR. CHEMICAL DEPENDENCY HISTORY: as per HPI. FAMILY PSYCHIATRIC/SUBSTANCE USE HISTORY: states there is a strong hx of etoh use in his family. SOCIAL HISTORY: Patient was born and raised in [place] and completed High school. He states that he currently lives with his girlfriend and her children. He has 1 daughter. He is currently unemployed. MENTAL STATUS EXAM: General Appearance: Patient appears to be thin, wearing a hat, stated age is alert, pleasant, and attempts to cooperative. intrusive at times. Patient appears to have fair hygiene and grooming wearing hospital gown with poor eye contact. Behavior: Patient is calmly lying in bed without any agitated behavior. restless at times. confused at times Speech: Patient's speech is fluent and nonpressured. Mood/Affect: Patient reports their mood is "mainly anxious", affect is congruent and confused at times Suicidality/Homicidality: Patient denies having any suicidal or homicidal ideation intent or plan. Perceptions: Patient admits to visual and auditory hallucinations. Though content/process: bizarre at times. endorsing some paranoia. Memory and concentration: AOX3, grossly intact for the purposes of this session. Can spell "WORLD" backwards Judgment and insight: poor IMPRESSIONS: Major depressive disorder, mild Alcohol use disorder, severe, currently in complicated withdrawal cannabis used disorder nicotine dependence PLAN: -At this time patient DOES NOT meet criteria for inpatient psychiatric admission. -Would recommend the following medication changes/additions: Started campral tid for etoh cravings, doxepin 10 mg qhs for insomnia/mood, increased valium 10 mg po tid for withdrawal. continue with ativan prn for w/d -CIWA protocol with PRN Ativan for alcohol withdrawal. Continue to monitor vital signs. -thiamine, FA and multivitamin -patient is refusing rehab at this time. -latex foam worker to provide patient with outpatient mental health/psychiatry resources for appropriate follow up upon discharge -Roll Over Loader spoke with patient about substance abuse and the harmful effects on medical and mental health, patient verbally understood and agreed. -latex foam worker to provide patient substance use treatment resources including AA/NA meetings in the community. -Communicated plan to patient's nurse -Will continue to follow along if requested -Please contact with any questions.
[2021-02-26] MEDS: FOLIC ACID 1 MG TAB PO SCH (16:14)
[2021-02-26] MEDS: ACAMPROSATE CALCIUM 333 MG TABLET.DR PO SCH ×2 (16:14→21:16)
[2021-02-26] MEDS: diazePAM 5 MG TAB PO SCH ×2 (16:14→21:15)
[2021-02-26] MEDS: MULTIVITAMINS, THERA 1 EACH TAB PO SCH (16:14)
[2021-02-26] MEDS: THIAMINE 100 MG TAB PO SCH (18:47)
[2021-02-26] MEDS: MAGNESIUM OXIDE 400 MG TAB PO SCH (21:17)
[2021-02-26] MEDS: DOXEPIN 10 MG CAP PO SCH ×2 (21:19→23:46)
[2021-02-27] MEDS: HALOPERIDOL LACTATE 5 MG/ML 1 ML VIAL IM SCH ×5 (00:30→03:27)
[2021-02-27] MEDS: LORAZEPAM IV SCH ×10 (01:34→21:51)
[2021-02-27] MEDS: DEXTROSE 5% IV SCH ×10 (01:34→21:51)
[2021-02-27] MEDS: WATER IV SCH ×10 (01:34→21:51)
[2021-02-27] MEDS ORDERED: propofoL 100 ML IV ONE (03:30)
--- NOTE | 2021-02-27 04:22 | XR ---
EXAMINATION TYPE: XR chest 1V DATE OF EXAM: 02/27/2021 COMPARISON: NONE HISTORY: Check tube placement TECHNIQUE: Single view FINDINGS: Endotracheal tube is 12 mm from the elio. Lungs are clear. There is no heart failure. The re is nasogastric tube in the stomach. Heart and mediastinum are normal. IMPRESSION: No cardiopulmonary disease. Endotracheal tube is low and should be pulled back 2 cm.
[2021-02-27 05:23] LABS: ABG HCO3 24 mmol/L (21-25); ABG PCO2 36 mmHg (35-45); ABG PH 7.42 (7.35-7.45); ABG PO2 278 mmHg (83-108); ABG TCO2 25 mmol/L (19-24); Allen Test Performed? Yes
[2021-02-27 05:36] LABS: Glucose,Whole Blood 122 mg/dL (75-99)
[2021-02-27 06:31] LABS: Basophils % (A) 0 %; Eosinophils % (A) 0 %; HCT 41.2 % (39.0-53.0); HGB 14.2 gm/dL (13.0-17.5); Lymphocytes # (A) 1.4 k/uL (1.0-4.8); Lymphocytes % (A) 14 %; MCH 33.9 pg (25.0-35.0); MCHC 34.5 g/dL (31.0-37.0); MCV 98.1 fL (80.0-100.0); Monocytes # (A) 0.6 k/uL (0-1.0); Monocytes % (A) 6 %; Neutrophils # (A) 8.3 k/uL (1.3-7.7); Neutrophils % (A) 79 %; Platelet Count 154 k/uL (150-450); WBC 10.5 k/uL (3.8-10.6)
--- NOTE | 2021-02-27 07:05 | XR ---
EXAMINATION TYPE: XR chest 1V portable DATE OF EXAM: 02/27/2021 CLINICAL HISTORY: Difficulty breathing progress study. TECHNIQUE: Single AP portable upright view of the chest is obtained. COMPARISON: Chest x-ray from earlier today FINDINGS: Orogastric tube redemonstrated projecting below diaphragm. Some interval retraction of end otracheal tube with tip now above the aortic knob more satisfactory in position. Lungs remain clear without pleural effusion or pneumothorax seen. Cardiac size stable within normal l imits. Underlying scoliotic curvature redemonstrated. IMPRESSION: Improved positioning of endotracheal tube. Lungs remain clear.
[2021-02-27 07:23] LABS: ALT 91 U/L (4-49); AST 172 U/L (17-59); African American GFR (CKD) >90 (>60 ml/min/1.73 sqM); Alkaline Phosphatase 53 U/L (38-126); Anion Gap 9 mmol/L; Blood Urea Nitrogen 8 mg/dL (9-20); Calcium 9.4 mg/dL (8.4-10.2); Carbon Dioxide 22 mmol/L (22-30); Chloride 106 mmol/L (98-107); Glucose 120 mg/dL (74-99); Non-African American GFR(CKD) >90 (>60 ml/min/1.73 sqM); Potassium 3.2 mmol/L (3.5-5.1); Sodium 137 mmol/L (137-145); Total Bilirubin 0.7 mg/dL (0.2-1.3); Total Protein 6.6 g/dL (6.3-8.2)
[2021-02-27 08:08] LABS: Appearance,Urine Clear (Clear); Bilirubin,Urine Negative (Negative); Blood,Urine Negative (Negative); Color,Urine Yellow; Glucose,Urine (UA) Negative (Negative); Ketones,Urine Negative (Negative); Leukocyte Esterase,Urine Negative (Negative); Nitrite,Urine Negative (Negative); Protein,Urine Negative (Negative); Specific Gravity,Urine 1.008 (1.001-1.035); Urobilinogen,Urine <2.0 mg/dL (<2.0)
[2021-02-27] MEDS ORDERED: Potassium Replacement Protocol 1 EACH MISC MISCELLANE PRN (09:26)
[2021-02-27] MEDS: MULTIVITAMINS, THERA 1 EACH TAB PO SCH (09:33)
[2021-02-27] MEDS: CHLORHEXIDINE GLUCONATE 15 ML CUP MUCOUS MEM SCH ×2 (09:33→21:22)
[2021-02-27] MEDS: ACAMPROSATE CALCIUM 333 MG TABLET.DR PO SCH ×3 (09:33→21:22)
[2021-02-27] MEDS: FOLIC ACID 1 MG TAB PO SCH (09:33)
[2021-02-27] MEDS: NICOTINE 21MG/24HR PATCH TRANSDERM SCH (09:33)
[2021-02-27] MEDS: THIAMINE 100 MG TAB PO SCH ×2 (09:34→17:47)
[2021-02-27] MEDS: MAGNESIUM OXIDE 400 MG TAB PO SCH ×2 (09:34→21:22)
[2021-02-27] MEDS: POTASSIUM BICARBONATE/CIT AC 20 MEQ TABLET.EFF NG-TUBE SCH ×2 (09:35→11:20)
[2021-02-27] MEDS: diazePAM 5 MG TAB PO SCH ×3 (09:54→21:23)
--- NOTE | 2021-02-27 10:03 | P.CNPUL ---
History of Present Illness Consult date: 02/27/21 Requesting physician: Louie Lyle Jr Reason for consult: other (critical care/mechanical ventilator management) Chief complaint: alcohol withdrawal History of present illness: is a 25-year-old male patient who follows with Dr. Lyle is his primary care provider. He has a history of disease disease of the left hip, depression, chronic tobacco dependence, daily alcohol abuse. He was brought into the emergency room yesterday by his father for significant shaking delirium tremens altered mental status after not drinking for 4 days.appendectomy was originally admitted to the selective care unit however last evening and early this morning he developedincreasing restlessness, agitation transferred to the intensive care unit subsequently placed on the mechanical ventilator. Chest x- ray shows no acute cardiopulmonary process. White count 10.5. Hemoglobin 14.2. Sodium 137. Potassium 3.2. Creatinine 0.93. Glucose 122. AST 172. ALT 91. Urine drug screen was positive for marijuana.alcohol level less than 10. Chronic virus by PCR not detected. Current vent settings are assist control at a rate of 20, tidal on 450, FiO2 40% and a PEEP of 5. Morning blood gases revealed a PaO2 of 278, pCO2 36 and a pH is 7.42. That was on 50% FiO2. He is currently sedated on propofol 50 mcg/kg/m. He is on Ativan drip at 6 mg per hour. Normal saline at 20 ML's per hour. Review of Systems ROS unobtainable: due to endotracheal tube Past Medical History Additional Past Medical History / Comment(s): Pirthise disease Left hip History of Any Multi-Drug Resistant Organisms: None Reported Past Surgical History: Hernia Repair Additional Past Surgical History / Comment(s): left hip Past Anesthesia/Blood Transfusion Reactions: No Reported Reaction Past Psychological History: Depression Smoking Status: Current every day smoker Past Alcohol Use History: Abuse, Daily Past Drug Use History: None Reported, Marijuana - Past Family History Father Family Medical History: Coronary Artery Disease (CAD) Mother Family Medical History: Cancer Medications and Allergies Home Medications Medication Instructions Recorded Confirmed Type No Known Home Medications 02/26/21 02/26/21 History Allergies Allergy/AdvReac Type Severity Reaction Status Date / Time adhesive tape Allergy Rash/Hives Verified 02/26/21 08:25 Physical Exam Vitals: Vital Signs Temp Pulse Pulse Resp BP BP Pulse Ox 02/27/21 07:00 73 20 132/94 100 02/27/21 06:30 85 20 132/94 100 02/27/21 06:00 87 20 138/102 100 02/27/21 05:30 93 20 122/85 100 02/27/21 05:00 97 20 100 02/27/21 04:30 98.5 F 105 H 20 115/71 100 02/27/21 04:00 116 H 20 88/64 100 02/27/21 03:00 98.6 F 22 142/88 100 02/27/21 02:30 144 H 15 139/102 02/27/21 02:14 154 H 15 147/107 02/26/21 20:00 88 19 02/26/21 16:00 98.4 F 83 18 146/106 100 02/26/21 14:00 107 H 18 02/26/21 12:00 98.1 F 107 H 18 153/115 98 Intake and Output 02/26/21 02/27/21 02/27/21 22:59 06:59 14:59 Intake Total 750.000 312.010 Output Total 1760 140 Balance -1010.000 172.010 Intake: IV 200 20 0.9 NaCl- 100 20 Magnesium Sulfate 100 Intake, IV Titration 250.000 292.010 Amount LORazepam Vial 25 mg In 250.000 220 Dextrose 5% in Water 237. 5 ml @ Per Protocol IV . Q0M MIGUEL A Rx#:[id number] propofoL 1,000 mg In 72.010 Empty Bag 1 bag @ Titrate IV .Q0M MIGUEL A Rx#: [id number] Oral 300 Output: Urine 1760 140 Other: Voiding Method Indwelling Catheter ABP, PAP, CO, CI - Last 8 Hours Arterial Blood Pressure 117/78 Arterial Blood Pressure 125/80 Arterial Blood Pressure 154/85 Arterial Blood Pressure 130/72 Arterial Blood Pressure 107/65 Arterial Blood Pressure 116/68 Arterial Blood Pressure 148/86 GENERAL EXAM: Intubated, sedated 25-year-old male patient, comfortable in no apparent distress. HEAD: Normocephalic. EYES: Normal reaction of pupils, equal size. NOSE: Clear with pink turbinates. THROAT: Oral endotracheal and gastric tube secured in place. No erythema or exudates. NECK: No masses, no JVD. CHEST: No chest wall deformity. LUNGS: Equal air entry with no crackles, wheeze, rhonchi or dullness. CVS: S1 and S2 normal with no audible murmur, regular rhythm. ABDOMEN: No hepatosplenomegaly, normal bowel sounds, no guarding or rigidity. SPINE: No scoliosis or deformity SKIN: No rashes CENTRAL NERVOUS SYSTEM: No focal deficits, tone is normal in all 4 extremities. EXTREMITIES: There is no peripheral edema. No clubbing, no cyanosis. Peripheral pulses are intact. Results - Laboratory Findings CBC and BMP: 02/27/21 05:30 02/27/21 05:30 ABG ABG pH 7.42 (7.35-7.45) 02/27/21 05:20 ABG pCO2 36 mmHg (35-45) 02/27/21 05:20 ABG pO2 278 mmHg (83-108) H 02/27/21 05:20 ABG O2 Saturation 100.0 % (94-97) H 02/27/21 05:20 Abnormal lab findings: Abnormal Labs 02/26/21 02/26/21 02/26/21 02:54 02:54 07:52 WBC 14.2 H RBC Neutrophils # 10.8 H ABG pO2 ABG Total CO2 ABG O2 Saturation Sodium 133 L Potassium 3.4 L BUN Glucose 123 H POC Glucose (mg/dL) Magnesium AST 117 H ALT 67 H Lipase 457 H U Marijuana (THC) Screen Detected H 02/27/21 02/27/21 02/27/21 05:20 05:30 05:30 WBC RBC 4.20 L Neutrophils # 8.3 H ABG pO2 278 H ABG Total CO2 25 H ABG O2 Saturation 100.0 H Sodium Potassium 3.2 L BUN 8 L Glucose 120 H POC Glucose (mg/dL) Magnesium AST 172 H ALT 91 H Lipase U Marijuana (THC) Screen 02/27/21 02/27/21 05:30 05:33 WBC RBC Neutrophils # ABG pO2 ABG Total CO2 ABG O2 Saturation Sodium Potassium BUN Glucose POC Glucose (mg/dL) 122 H Magnesium 2.9 H AST ALT Lipase U Marijuana (THC) Screen - Diagnostic Findings Chest x-ray: image reviewed Assessment and Plan Assessment: 1 Acute delirium tremens secondary to alcohol withdrawal requiring intubation mechanical ventilatory support early on 02/28/2020. He remains on Ativan drip at 6 mg per hour. 2 Daily alcohol use 1 pint to 1 fifth a day of alcohol. Initiated on Campral per psychiatric services 3 Marijuana use 4 Chronic tobacco dependence Plan: The patient was seen and evaluated by Dr. Sutton Chest x-ray, ABGs and labs reviewed We will titrate down the sedation as tolerated Most likely remain intubated another 24 hours We will continue to follow and make further recommendations based on his clinical status I, the cosigning physician, performed a history & physical examination of the patient. Lungs sounds are clear. Maintaining good O2 saturations in the 90s on 40% FiO2 and a PEEP of 5 via the mechanical ventilator. I discussed the assessment and plan of care with my nurse practitioner, Caryn Ambriz. I attest to the above consultation as dictated by her. Time with Patient: Greater than 30
[2021-02-27] MEDS: PANTOPRAZOLE 40 MG/10 ML VIAL IV SCH (11:18)
--- NOTE | 2021-02-27 12:00 | P.PN ---
Subjective he 25-year-old gentleman that presented to the ER with complaints of active DTs, positive night sweats,. States he is on Klonopin which he states is not helping him.Reports he drinks approximately 2 pints to 1-1/2 fifths of alcohol per day. Vague historian. Denies any syncope. Denies any lightheadedness dizziness or focal deficits. Lipase 457. Denies any nausea vomiting or diarrhea. Denies any abdominal pain. Denies any chest pain, palpitations or shortness of breath. Sodium 133, potassium 3.4, renal function stable, glucose 123 magnesium 0.7, total bili 1.0, AST 117, ALT 67 .Toxicology screen detected marijuana, serum alcohol less than 10 .Reports he also had a seizure while in the ER, ER report currently unavailable in EHR.received IV fluid hydration with CIWA protocol. February 27 2021:25-year-old known alcoholic became more and more agitated floor yesterday afternoon and evening. He eventually needed to be in soft restraints. Haldol was ordered initially but inadvertently put in for a 1 time dose instead of hourly. The patient became more and more agitated and resisted resistant to oral Ativan hourly and Haldol given. Eventually required a consultation with critical care and transferred to intensive care unit for Ativan drip. The patient was intubated and still sedated at that point with propofol. He was found resting comfortably in the intensive care unit currently. He is mechanically ventilated with an FiO2 of 40% and PEEP of 5. Blood pressure heart rate rest her rate are stable. Labs this morning show a normal WBC count and hemoglobin. Blood gases showed a pH of 7.42 with PCO2 36 and a PO2 of 278. Chemistries show a hypokalemia with a potassium of 3.2. BUN 8 creatinine 0.93. Glucose was 120 this morning. AST and ALT are elevated at 172 and 91 respectively. Urinalysis is normal 2. Chest x-ray showed improved positioning the endotracheal tube. Lungs remain clear. The patient's mother was at bedside today. We discussed his care and current state. Objective - Vital Signs Vital signs: Vital Signs Temp 96.0 F L 02/27/21 08:00 Pulse 74 02/27/21 11:30 Resp 20 02/27/21 11:30 BP 109/84 02/27/21 11:30 Pulse Ox 100 02/27/21 11:30 Intake & Output 02/26/21 02/27/21 02/27/21 18:59 06:59 18:59 Intake Total 750.000 572.010 Output Total 1760 310 Balance -1010.000 262.010 Weight 134.6 kg Intake: IV 200 100 0.9 NaCl- 100 100 Magnesium Sulfate 100 Intake, IV Titration 250.000 292.010 Amount LORazepam Vial 25 mg In 250.000 220 Dextrose 5% in Water 237. 5 ml @ Per Protocol IV . Q0M MIGUEL A Rx#:[id number] propofoL 1,000 mg In 72.010 Empty Bag 1 bag @ Titrate IV .Q0M MIGUEL A Rx#: [id number] Oral 300 Other 180 Output: Urine 1760 310 Other: Voiding Method Indwelling Catheter Indwelling Catheter ABP, PAP, CO, CI - Last Documented Arterial Blood Pressure 108/80 - Exam GENERAL: Patient is intubated, sedated with propofol and Ativan. HEAD: Atraumatic, normocephalic. ET tube in place. NECK: Normal range of motion, supple without lymphadenopathy or JVD, no thyromegaly LUNGS: Breath sounds clear to auscultation bilaterally and equal. No wheezes rales or rhonchi. He is being mechanically ventilated FiO2 40%, PEEP 5 HEART: Regular rate and rhythm without murmurs, rubs or gallops.S1S2 Normal ABDOMEN: Soft, nontender, normoactive bowel sounds. No guarding, no rebound. No masses appreciated. Stovall catheter is in place. Urine in the back appears straw-colored and clear . EXTREMITIES: Normal range of motion, no pitting or edema. No clubbing or cyanosis. NEUROLOGICAL: Patient intubated and sedated SKIN: Warm, Dry, normal turgor, no rashes or lesions noted. - Labs CBC & Chem 7: 02/27/21 05:30 02/27/21 05:30 Labs: Abnormal Lab Results - Last 24 Hours (Table) 02/27/21 02/27/21 02/27/21 Range/Units 05:20 05:30 05:30 RBC 4.20 L (4.30-5.90) m/uL Neutrophils # 8.3 H (1.3-7.7) k/uL ABG pO2 278 H (83-108) mmHg ABG Total CO2 25 H (19-24) mmol/L ABG O2 Saturation 100.0 H (94-97) % Potassium 3.2 L (3.5-5.1) mmol/L BUN 8 L (9-20) mg/dL Glucose 120 H (74-99) mg/dL POC Glucose (mg/dL) (75-99) mg/dL Magnesium (1.6-2.3) mg/dL AST 172 H (17-59) U/L ALT 91 H (4-49) U/L 02/27/21 02/27/21 Range/Units 05:30 05:33 RBC (4.30-5.90) m/uL Neutrophils # (1.3-7.7) k/uL ABG pO2 (83-108) mmHg ABG Total CO2 (19-24) mmol/L ABG O2 Saturation (94-97) % Potassium (3.5-5.1) mmol/L BUN (9-20) mg/dL Glucose (74-99) mg/dL POC Glucose (mg/dL) 122 H (75-99) mg/dL Magnesium 2.9 H (1.6-2.3) mg/dL AST (17-59) U/L ALT (4-49) U/L Assessment and Plan (1) Hypokalemia Current Visit: Yes Status: Acute Code(s): E87.6 - HYPOKALEMIA SNOMED Code(s): 41737775 (2) Alcohol withdrawal delirium Current Visit: Yes Status: Acute Code(s): F10.231 - ALCOHOL DEPENDENCE WITH WITHDRAWAL DELIRIUM SNOMED Code(s): 7147318 (3) Alcohol withdrawal syndrome Current Visit: Yes Status: Acute Code(s): F10.239 - ALCOHOL DEPENDENCE WITH WITHDRAWAL, UNSPECIFIED SNOMED Code(s): 775469707 (4) Hypomagnesemia Current Visit: Yes Status: Acute Code(s): E83.42 - HYPOMAGNESEMIA SNOMED Code(s): 266408293 Plan: I will wait further recommendations from critical care. Expect he'll need to remain intubated, sedated, on propofol and Ativan for another 24 hours. Wait and repeat labs. I'll reevaluate him in the next 24 hours.
[2021-02-27] MEDS: DOXEPIN 10 MG CAP PO SCH (21:22)
[2021-02-28] MEDS: DEXTROSE 5% IV SCH ×8 (03:30→21:30)
[2021-02-28] MEDS: LORAZEPAM IV SCH ×8 (03:30→21:30)
[2021-02-28] MEDS: WATER IV SCH ×8 (03:30→21:30)
[2021-02-28 03:42] LABS: Glucose,Whole Blood 101 mg/dL (75-99)
[2021-02-28 04:03] LABS: Basophils # (A) 0.1 k/uL (0-0.2); Basophils % (A) 1 %; Eosinophils # (A) 0.1 k/uL (0-0.7); Eosinophils % (A) 1 %; HCT 44.4 % (39.0-53.0); HGB 14.5 gm/dL (13.0-17.5); Lymphocytes # (A) 1.1 k/uL (1.0-4.8); Lymphocytes % (A) 11 %; MCH 32.7 pg (25.0-35.0); MCHC 32.7 g/dL (31.0-37.0); MCV 100.1 fL (80.0-100.0); Macrocytosis Slight; Mean Platelet Volume 8.8; Monocytes # (A) 0.5 k/uL (0-1.0); Monocytes % (A) 5 %; Neutrophils % (A) 81 %; Platelet Count 148 k/uL (150-450); RBC 4.44 m/uL (4.30-5.90); RDW 14.5 % (11.5-15.5); WBC 9.8 k/uL (3.8-10.6)
[2021-02-28 04:15] LABS: African American GFR (CKD) >90 (>60 ml/min/1.73 sqM); Anion Gap 9 mmol/L; Blood Urea Nitrogen 8 mg/dL (9-20); Calcium 9.2 mg/dL (8.4-10.2); Carbon Dioxide 22 mmol/L (22-30); Chloride 105 mmol/L (98-107); Glucose 99 mg/dL (74-99); Non-African American GFR(CKD) >90 (>60 ml/min/1.73 sqM); Potassium 3.6 mmol/L (3.5-5.1); Sodium 136 mmol/L (137-145)
[2021-02-28 05:39] LABS: ABG Base Excess -0.1 mmol/L; ABG HCO3 24 mmol/L (21-25); ABG Oxygen Saturation 99.5 % (94-97); ABG PCO2 34 mmHg (35-45); ABG PH 7.46 (7.35-7.45); ABG PO2 136 mmHg (83-108); ABG TCO2 25 mmol/L (19-24); Allen Test Performed? Yes
[2021-02-28] MEDS: POTASSIUM CHLORIDE 10 MEQ in WATER FOR INJECTION 1 100ML.BAG IVPB SCH ×2 (06:02→09:14)
--- NOTE | 2021-02-28 06:41 | XR ---
EXAMINATION TYPE: XR chest 1V portable DATE OF EXAM: 02/28/2021 CLINICAL HISTORY: Difficulty breathing progress study. TECHNIQUE: Single AP portable upright view of the chest is obtained. COMPARISON: Chest x-ray from one day earlier FINDINGS: Stable endotracheal and orogastric tubes. Lungs remain clear without pleural effusion or pneumothorax seen. Cardiac silhouette size stable and within normal limits. Osseous structures are intact. IMPRESSION: Lungs remain clear.
[2021-02-28] MEDS: MAGNESIUM OXIDE 400 MG TAB PO SCH ×2 (08:44→22:56)
[2021-02-28] MEDS: MULTIVITAMINS, THERA 1 EACH TAB PO SCH (08:44)
[2021-02-28] MEDS: ACAMPROSATE CALCIUM 333 MG TABLET.DR PO SCH ×3 (08:44→22:56)
[2021-02-28] MEDS: THIAMINE 100 MG TAB PO SCH ×2 (08:44→17:27)
[2021-02-28] MEDS: NICOTINE 21MG/24HR PATCH TRANSDERM SCH (08:44)
[2021-02-28] MEDS: CHLORHEXIDINE GLUCONATE 15 ML CUP MUCOUS MEM SCH ×2 (08:44→22:56)
[2021-02-28] MEDS: FOLIC ACID 1 MG TAB PO SCH (08:44)
[2021-02-28] MEDS: diazePAM 5 MG TAB PO SCH ×3 (08:45→22:52)
[2021-02-28] MEDS: PANTOPRAZOLE 40 MG/10 ML VIAL IV SCH (08:46)
--- NOTE | 2021-02-28 10:29 | P.PN ---
Subjective Progress Note Date: 02/28/21 Principal diagnosis: Acute delirium tremens This is a 25-year-old male patient who follows with Dr. Lyle is his primary care provider. He has a history of disease disease of the left hip, depression, chronic tobacco dependence, daily alcohol abuse. He was brought into the emergency room yesterday by his father for significant shaking delirium tremens altered mental status after not drinking for 4 days.appendectomy was originally admitted to the selective care unit however last evening and early this morning he developedincreasing restlessness, agitation transferred to the intensive care unit subsequently placed on the mechanical ventilator. Chest x- ray shows no acute cardiopulmonary process. White count 10.5. Hemoglobin 14.2. Sodium 137. Potassium 3.2. Creatinine 0.93. Glucose 122. AST 172. ALT 91. Urine drug screen was positive for marijuana.alcohol level less than 10. Chronic virus by PCR not detected. Current vent settings are assist control at a rate of 20, tidal on 450, FiO2 40% and a PEEP of 5. Morning blood gases revealed a PaO2 of 278, pCO2 36 and a pH is 7.42. That was on 50% FiO2. He is currently sedated on propofol 50 mcg/kg/m. He is on Ativan drip at 6 mg per hour. Normal saline at 20 ML's per hour. On 02/28/2021 patient seen in follow-up in the intensive care unit, he remains sedated, and intubated, on assist-control mode of ventilation with a rate of 20, tidal level is 450, FiO2 40% and PEEP of 5, this morning's blood gas shows pO2 136, pCO2 of 34, and pH of 7.46 and this was done the above mentioned vent settings, FiO2 was subsequently dropped down to 30%, and rate was dropped down to 18. Is currently on Diprivan at 50 mics per kilo per minute, Ativan is at 4 mg per hour, and 0.9 normal saline at rate of 20 ML per hour. Hemodynamically has been stable, he is in sinus mechanism, with a rate of 87, no tachycardia, blood pressure is 127/74, not requiring any vasopressor support, today's chest x-ray has been reviewed showing clear lungs without pleural effusion or pneumothorax. Today's labs have been reviewed , white count is 9.8, hemoglobin is 14.5, sodium is 136, potassium is 3.6, chloride is 105, CO2 is 22, BUN is 8, creatinine 0.82, urinalysis without sign of infection, did have a fever this morning with a temp of 102.5F. This morning he was also given a light sedation holiday however patient was extremely agitated and he was difficult to get him to follow any commands. he was subsequently re-sedated. Objective - Vital Signs Vital signs: Vital Signs Temp 102.5 F H 02/28/21 08:00 Pulse 87 02/28/21 08:30 Resp 21 02/28/21 08:30 BP 130/91 02/28/21 08:00 Pulse Ox 99 02/28/21 08:30 Intake & Output 02/27/21 02/28/21 02/28/21 18:59 06:59 18:59 Intake Total 9564.459 0152 344.333 Output Total 630 565 75 Balance 576.677 471 269.333 Weight 134.6 kg Intake: IV 240 240 40 0.9 NaCl- 240 240 40 Intake, IV Titration 726.677 676 304.333 Amount LORazepam Vial 25 mg In 454.667 476 204.333 Dextrose 5% in Water 237. 5 ml @ Per Protocol IV . Q0M MIGUEL A Rx#:[id number] Potassium Chloride 10 meq 100 In Water For Injection 1 100ml.bag @ 100 mls/hr IVPB Q1H MIG[facility]EL A Rx#: [id number] propofoL 1,000 mg In 272.010 200 Empty Bag 1 bag @ Titrate IV .Q0M MIGUEL A Rx#: [id number] Oral 60 Other 180 120 Output: Urine 630 565 75 Other: Voiding Method Indwelling Catheter Indwelling Catheter Indwelling Catheter ABP, PAP, CO, CI - Last Documented Arterial Blood Pressure 137/79 - Exam GENERAL EXAM: Sedated, 25-year-old white male, on assist-control mode of ventilation with a rate of 20, tidal arm is 450, FiO2 40% and PEEP of 5 comfortable in no apparent distress. HEAD: Normocephalic/atraumatic. EYES: Normal reaction of pupils, equal size. Conjunctiva pink, sclera white. NOSE: Clear with pink turbinates. THROAT: No erythema or exudates. NECK: No masses, no JVD, no thyroid enlargement, no adenopathy. CHEST: No chest wall deformity. Symmetrical expansion. LUNGS: Equal air entry with no crackles, wheeze, rhonchi or dullness. CVS: Regular rate and rhythm, normal S1 and S2, no gallops, no murmurs, no rubs ABDOMEN: Soft, nontender. No hepatosplenomegaly, normal bowel sounds, no guarding or rigidity. EXTREMITIES: No clubbing, no edema, no cyanosis, 2+ pulses and upper and lower extremities. MUSCULOSKELETAL: Muscle strength and tone normal. SPINE: No scoliosis or deformity SKIN: No rashes CENTRAL NERVOUS SYSTEM: Sedated and intubated No focal deficits, tone is normal in all 4 extremities. - Labs CBC & Chem 7: 02/28/21 03:40 02/28/21 03:40 Labs: Abnormal Lab Results - Last 24 Hours (Table) 02/28/21 02/28/21 02/28/21 Range/Units 03:39 03:40 03:40 MCV 100.1 H (80.0-100.0) fL Plt Count 148 L (150-450) k/uL Neutrophils # 8.0 H (1.3-7.7) k/uL ABG pH (7.35-7.45) ABG pCO2 (35-45) mmHg ABG pO2 (83-108) mmHg ABG Total CO2 (19-24) mmol/L ABG O2 Saturation (94-97) % Sodium 136 L (137-145) mmol/L BUN 8 L (9-20) mg/dL POC Glucose (mg/dL) 101 H (75-99) mg/dL 02/28/21 Range/Units 05:35 MCV (80.0-100.0) fL Plt Count (150-450) k/uL Neutrophils # (1.3-7.7) k/uL ABG pH 7.46 H (7.35-7.45) ABG pCO2 34 L (35-45) mmHg ABG pO2 136 H (83-108) mmHg ABG Total CO2 25 H (19-24) mmol/L ABG O2 Saturation 99.5 H (94-97) % Sodium (137-145) mmol/L BUN (9-20) mg/dL POC Glucose (mg/dL) (75-99) mg/dL Assessment and Plan Plan: Assessment: #1. Acute alcohol withdrawal with acute delirium tremens requiring intubation and mechanical ventilator support on 02/27/2021. Patient remains on Diprivan and Ativan currently at 4 mg/h. #2. Daily and chronic alcohol abuse, of 1.21 fifth a day of alcohol, was started on Campral for psychiatric services #3. Marijuana use #4. Chronic tobacco dependence #5. Hypokalemia, likely related to chronic alcoholism, dehydration, corrected #6. Congenital left hip dysplasia #7. Depression Plan: Patient was given a light sedation holiday Became extremely agitated Was placed back on sedation, Continues on Ativan at 4 mg per hour Today's chest x-ray, blood gases and labs reviewed We'll drop the FiO2 down to 30%, and respiratory rate down to 18 Continue Valium, Campral We'll add Zosyn for empiric antibiotic coverage, fosinopril calcitonin level Follow up labs tomorrow including CBC, CMP, follow-up chest x-ray and blood gases We'll attempt sedation holiday again tomorrow I performed a history & physical examination of the patient and discussed their management with my nurse practitioner, Minnie Menendez. I reviewed the nurse pra ctitioner's note and agree with the documented findings and plan of care. Lung sounds are positive fordim breath sounds throughout the lung sher[place]. The findings and the impression was discussed with the patient. I attest to the documentation by the nurse practitioner. Time with Patient: Greater than 30
[2021-02-28] MEDS: PIPERACILLIN-TAZOBACTAM 3.375 GM in SODIUM CHLORIDE 0.9% 100 ML IVPB SCH ×2 (11:49→17:27)
[2021-02-28] MEDS: IPRATROPIUM-ALBUTEROL 3 ML NEB INHALATION SCH ×3 (12:02→20:08)
--- NOTE | 2021-02-28 12:27 | P.PN ---
Subjective he 25-year-old gentleman that presented to the ER with complaints of active DTs, positive night sweats,. States he is on Klonopin which he states is not helping him.Reports he drinks approximately 2 pints to 1-1/2 fifths of alcohol per day. Vague historian. Denies any syncope. Denies any lightheadedness dizziness or focal deficits. Lipase 457. Denies any nausea vomiting or diarrhea. Denies any abdominal pain. Denies any chest pain, palpitations or shortness of breath. Sodium 133, potassium 3.4, renal function stable, glucose 123 magnesium 0.7, total bili 1.0, AST 117, ALT 67 .Toxicology screen detected marijuana, serum alcohol less than 10 .Reports he also had a seizure while in the ER, ER report currently unavailable in EHR.received IV fluid hydration with CIWA protocol. February 27 2021:25-year-old known alcoholic became more and more agitated floor yesterday afternoon and evening. He eventually needed to be in soft restraints. Haldol was ordered initially but inadvertently put in for a 1 time dose instead of hourly. The patient became more and more agitated and resisted resistant to oral Ativan hourly and Haldol given. Eventually required a consultation with critical care and transferred to intensive care unit for Ativan drip. The patient was intubated and still sedated at that point with propofol. He was found resting comfortably in the intensive care unit currently. He is mechanically ventilated with an FiO2 of 40% and PEEP of 5. Blood pressure heart rate rest her rate are stable. Labs this morning show a normal WBC count and hemoglobin. Blood gases showed a pH of 7.42 with PCO2 36 and a PO2 of 278. Chemistries show a hypokalemia with a potassium of 3.2. BUN 8 creatinine 0.93. Glucose was 120 this morning. AST and ALT are elevated at 172 and 91 respectively. Urinalysis is normal 2. Chest x-ray showed improved positioning the endotracheal tube. Lungs remain clear. The patient's mother was at bedside today. We discussed his care and current state. 02/28/2021: This patient remains intubated and sedated. Propofol and Ativan due to severe delirium tremens and alcohol withdrawal. Vital signs remained stable today. FiO2 is now 30% with a PEEP of 5. Her rate is now mechanically venti lated and 18. Heart rate and blood pressure remains stable. MAXIMUM TEMPERATURE is 102.5. He has an indwelling Stovall catheter. I's and O's currently showed a positive balance of 269, pulse width 544 in and 275 out. Stool is noted today. Laboratory studies show a normal CBC except for an MCV of 100.1. Platelets are slightly decreased at 140. There is a slight left shift with absolute neutrop hil count of 8. PH is 7.46 with a PCO2 of 34 and PO2 136. Blood chemistries from early this morning showed a potassium of 3.6. Glucose is 101. Chest x-ray shows clear. Medical care progress note reviewed. Objective - Vital Signs Vital signs: Vital Signs Temp 102.5 F H 02/28/21 08:00 Pulse 96 02/28/21 12:10 Resp 21 02/28/21 10:00 BP 124/83 02/28/21 10:00 Pulse Ox 96 02/28/21 10:00 Intake & Output 02/27/21 02/28/21 02/28/21 18:59 06:59 18:59 Intake Total 7138.778 2493 544.333 Output Total 630 565 275 Balance 576.677 471 269.333 Weight 134.6 kg Intake: IV 240 240 80 0.9 NaCl- 240 240 80 Intake, IV Titration 726.677 676 404.333 Amount LORazepam Vial 25 mg In 454.667 476 204.333 Dextrose 5% in Water 237. 5 ml @ Per Protocol IV . Q0M [facility]IG[facility]EL A Rx#:[id number] Potassium Chloride 10 meq 200 In Water For Injection 1 100ml.bag @ 100 mls/hr IVPB Q1H [facility]IG[facility]EL A Rx#: [id number] propofoL 1,000 mg In 272.010 200 Empty Bag 1 bag @ Titrate IV .Q0M MIGUEL A Rx#: [id number] Oral 60 Other 180 120 60 Output: Urine 630 565 275 Other: Voiding Method Indwelling Catheter Indwelling Catheter Indwelling Catheter ABP, PAP, CO, CI - Last Documented Arterial Blood Pressure 129/76 - Exam GENERAL: Patient is intubated, sedated with propofol and Ativan. HEAD: Atraumatic, normocephalic. ET tube in place. NECK: Normal range of motion, supple without lymphadenopathy or JVD, no thyromegaly LUNGS: Breath sounds clear to auscultation bilaterally and equal. No wheezes rales or rhonchi. He is being mechanically ventilated FiO2 40%, PEEP 5 HEART: Regular rate and rhythm without murmurs, rubs or gallops.S1S2 Normal ABDOMEN: Soft, nontender, normoactive bowel sounds. No guarding, no rebound. No masses appreciated. Stovall catheter is in place. Urine in the back appears straw-colored and clear . EXTREMITIES: Normal range of motion, no pitting or edema. No clubbing or cyanosis. NEUROLOGICAL: Patient intubated and sedated SKIN: Warm, Dry, normal turgor, no rashes or lesions noted. - Labs CBC & Chem 7: 02/28/21 03:40 02/28/21 03:40 Labs: Abnormal Lab Results - Last 24 Hours (Table) 02/28/21 02/28/21 02/28/21 Range/Units 03:39 03:40 03:40 MCV 100.1 H (80.0-100.0) fL Plt Count 148 L (150-450) k/uL Neutrophils # 8.0 H (1.3-7.7) k/uL ABG pH (7.35-7.45) ABG pCO2 (35-45) mmHg ABG pO2 (83-108) mmHg ABG Total CO2 (19-24) mmol/L ABG O2 Saturation (94-97) % Sodium 136 L (137-145) mmol/L BUN 8 L (9-20) mg/dL POC Glucose (mg/dL) 101 H (75-99) mg/dL 02/28/21 Range/Units 05:35 MCV (80.0-100.0) fL Plt Count (150-450) k/uL Neutrophils # (1.3-7.7) k/uL ABG pH 7.46 H (7.35-7.45) ABG pCO2 34 L (35-45) mmHg ABG pO2 136 H (83-108) mmHg ABG Total CO2 25 H (19-24) mmol/L ABG O2 Saturation 99.5 H (94-97) % Sodium (137-145) mmol/L BUN (9-20) mg/dL POC Glucose (mg/dL) (75-99) mg/dL Assessment and Plan (1) Hypokalemia Current Visit: Yes Status: Acute Code(s): E87.6 - HYPOKALEMIA SNOMED Code(s): 76870003 (2) Alcohol withdrawal delirium Current Visit: Yes Status: Acute Code(s): F10.231 - ALCOHOL DEPENDENCE WITH WITHDRAWAL DELIRIUM SNOMED Code(s): 0680933 (3) Alcohol withdrawal syndrome Current Visit: Yes Status: Acute Code(s): F10.239 - ALCOHOL DEPENDENCE WITH WITHDRAWAL, UNSPECIFIED SNOMED Code(s): 922261990 (4) Hypomagnesemia Current Visit: Yes Status: Acute Code(s): E83.42 - HYPOMAGNESEMIA SNOMED Code(s): 920208376 Plan: I will wait further recommendations from critical care. Expect he'll need to remain intubated, sedated, on propofol and Ativan for another 24 hours. repeat labs in am Family medicine reevaluate him in the next 24 hours.
[2021-02-28] MEDS ORDERED: ACETAMINOPHEN IV (For NPO) 1,000 MG in EMPTY BAG 1 BAG IVPB ONE (16:00)
[2021-02-28] MEDS: DOXEPIN 10 MG CAP PO SCH (22:56)
[2021-03-01] MEDS: PIPERACILLIN-TAZOBACTAM 3.375 GM in SODIUM CHLORIDE 0.9% 100 ML IVPB SCH ×3 (00:13→19:04)
[2021-03-01] MEDS: IPRATROPIUM-ALBUTEROL 3 ML NEB INHALATION SCH ×6 (01:01→19:57)
[2021-03-01] MEDS: WATER IV SCH ×2 (03:17)
[2021-03-01] MEDS: LORAZEPAM IV SCH ×2 (03:17)
[2021-03-01] MEDS: DEXTROSE 5% IV SCH ×2 (03:17)
[2021-03-01 05:42] LABS: ABG Base Excess 0.8 mmol/L; ABG HCO3 25 mmol/L (21-25); ABG Oxygen Saturation 97.5 % (94-97); ABG PCO2 37 mmHg (35-45); ABG PH 7.43 (7.35-7.45); ABG PO2 91 mmHg (83-108); ABG TCO2 26 mmol/L (19-24); Allen Test Performed? Yes
[2021-03-01 06:06] LABS: Basophils % (A) 0 %; Eosinophils % (A) 0 %; HCT 41.7 % (39.0-53.0); HGB 14.3 gm/dL (13.0-17.5); Lymphocytes # (A) 1.7 k/uL (1.0-4.8); Lymphocytes % (A) 12 %; MCH 34.2 pg (25.0-35.0); MCHC 34.2 g/dL (31.0-37.0); MCV 99.8 fL (80.0-100.0); Macrocytosis Slight; Mean Platelet Volume 8.9; Monocytes % (A) 7 %; Neutrophils # (A) 12.2 k/uL (1.3-7.7); Neutrophils % (A) 81 %; Platelet Count 139 k/uL (150-450); RBC 4.18 m/uL (4.30-5.90); RDW 14.4 % (11.5-15.5); WBC 15.1 k/uL (3.8-10.6)
[2021-03-01 06:17] LABS: ALT 319 U/L (4-49); AST 465 U/L (17-59); African American GFR (CKD) >90 (>60 ml/min/1.73 sqM); Albumin 3.4 g/dL (3.5-5.0); Alkaline Phosphatase 62 U/L (38-126); Anion Gap 10 mmol/L; Blood Urea Nitrogen 11 mg/dL (9-20); Calcium 8.8 mg/dL (8.4-10.2); Carbon Dioxide 23 mmol/L (22-30); Chloride 102 mmol/L (98-107); Glucose 113 mg/dL (74-99); Non-African American GFR(CKD) >90 (>60 ml/min/1.73 sqM); Potassium 3.6 mmol/L (3.5-5.1); Sodium 135 mmol/L (137-145); Total Bilirubin 0.9 mg/dL (0.2-1.3); Total Protein 5.9 g/dL (6.3-8.2)
--- NOTE | 2021-03-01 07:19 | XR ---
EXAMINATION TYPE: XR chest 1V portable DATE OF EXAM: 03/01/2021 COMPARISON: 02/28/2021 HISTORY: Tube placement TECHNIQUE: Single frontal view of the chest is obtained. FINDINGS: ET and NG tube stable. There is persistent perihilar interstitial infiltrates. Heart size normal. No pleural effusion or pneumothorax. Curvature of the spine. IMPRESSION: Right perihilar interstitial infiltrates.
[2021-03-01] MEDS ORDERED: POTASSIUM BICARBONATE/CIT AC 20 MEQ TABLET.EFF NG-TUBE SCH (08:00)
--- NOTE | 2021-03-01 09:24 | P.PN ---
Subjective Progress Note Date: 03/01/21 This is a 25-year-old male patient who follows with Dr. Lyle is his primary care provider. He has a history of disease disease of the left hip, depression, chronic tobacco dependence, daily alcohol abuse. He was brought into the emergency room yesterday by his father for significant shaking delirium tremens altered mental status after not drinking for 4 days.appendectomy was originally admitted to the selective care unit however last evening and early this morning he developedincreasing restlessness, agitation transferred to the intensive care unit subsequently placed on the mechanical ventilator. Chest x- ray shows no acute cardiopulmonary process. White count 10.5. Hemoglobin 14.2. Sodium 137. Potassium 3.2. Creatinine 0.93. Glucose 122. AST 172. ALT 91. Urine drug screen was positive for marijuana.alcohol level less than 10. Chronic virus by PCR not detected. Current vent settings are assist control at a rate of 20, tidal on 450, FiO2 40% and a PEEP of 5. Morning blood gases revealed a PaO2 of 278, pCO2 36 and a pH is 7.42. That was on 50% FiO2. He is currently sedated on propofol 50 mcg/kg/m. He is on Ativan drip at 6 mg per hour. Normal saline at 20 ML's per hour. On 02/28/2021 patient seen in follow-up in the intensive care unit, he remains sedated, and intubated, on assist-control mode of ventilation with a rate of 20, tidal level is 450, FiO2 40% and PEEP of 5, this morning's blood gas shows pO2 136, pCO2 of 34, and pH of 7.46 and this was done the above mentioned vent settings, FiO2 was subsequently dropped down to 30%, and rate was dropped down to 18. Is currently on Diprivan at 50 mics per kilo per minute, Ativan is at 4 mg per hour, and 0.9 normal saline at rate of 20 ML per hour. Hemodynamically has been stable, he is in sinus mechanism, with a rate of 87, no tachycardia, blood pressure is 127/74, not requiring any vasopressor support, today's chest x-ray has been reviewed showing clear lungs without pleural effusion or pneumothorax. Today's labs have been reviewed , white count is 9.8, hemoglobin is 14.5, sodium is 136, potassium is 3.6, chloride is 105, CO2 is 22, BUN is 8, creatinine 0.82, urinalysis without sign of infection, did have a fever this morning with a temp of 102.5F. This morning he was also given a light sedation holiday however patient was extremely agitated and he was difficult to get him to follow any commands. he was subsequently re-sedated. 03/01/2021, the patient is being seen for a follow-up. The patient remains on sedation and currently is on propofol at the rate of 35 mcg/kg per minute. He is also on Ativan at the rate of 2 mg an hour. He remains on a mechanical ventilator. This morning is an assist-control mode at the rate of 18, tidal volume of 450, FiO2 of 30% with a PEEP of 5. He is calm and comfortable while on sedation. He is quite extensive mechanical ventilator. Hemodynamically stable. He is on no pressors. Cardiac rhythm is sinus. Nevertheless, while being taken off the sedation, he had extreme agitation yesterday and the sedation holiday essentially failed. This morning he seems to be quite comfortable. The blood work from today is showing a white cell count of 15.1 with a hemoglobin of 14.3 and a platelet count of 139. The blood gas showed a pH of 7.4 with a pCO2 of 37 and pO2 of 91. Sodium is at 135, BUN is at 11 with a creatinine of 0.9. LFTs are obviously abnormal secondary to his history of alcoholism. ALT is 465, AST is at 319 slightly worse compared to yesterday. His pro calcitonin level was 0.13. He is on IV Zosyn as an empiric antibiotic coverage. His chest x-ray from today is showing no acute abnormalities. ET tube is in a good location. No infiltration. No evidence of any pneumonia. In terms of his temperature, the patient had a spike of temperature yesterday of 102.5 and this morning he is afebrile. Objective - Vital Signs Vital signs: Vital Signs Temp 98.4 F 03/01/21 04:00 Pulse 88 03/01/21 08:41 Resp 21 03/01/21 07:00 BP 106/64 03/01/21 06:30 Pulse Ox 100 03/01/21 07:00 Intake & Output 02/28/21 03/01/21 03/01/21 18:59 06:59 18:59 Intake Total 1334.333 952.481 20 Output Total 720 1350 15 Balance 614.333 -397.519 5 Weight 58.9 kg Intake: IV 260 220 20 0.9 NaCl- 260 220 20 Intake, IV Titration 954.333 732.481 Amount LORazepam Vial 25 mg In 454.333 541.833 Dextrose 5% in Water 237. 5 ml @ Per Protocol IV . Q0M [facility]IG[facility]EL A Rx#:[id number] Piperacillin-Tazobactam 3 100 .375 gm In Sodium Chloride 0.9% 100 ml @ 25 mls/hr IVPB Q8HR [facility]EL A Rx# :[id number] Potassium Chloride 10 meq 200 In Water For Injection 1 100ml.bag @ 100 mls/hr IVPB Q1H [facility] A Rx#: [id number] propofoL 1,000 mg In 200 190.648 Empty Bag 1 bag @ Titrate IV .Q0M MIGUEL A Rx#: [id number] Blood Product 60 Other 60 Output: Urine 720 1350 15 Other: Voiding Method Indwelling Catheter Indwelling Catheter ABP, PAP, CO, CI - Last Documented Arterial Blood Pressure 109/73 - Exam GENERAL EXAM: Sedated, 25-year-old white male, on assist-control mode of ventilation with a rate of 20, tidal arm is 450, FiO2 40% and PEEP of 5 comfortable in no apparent distress. HEAD: Normocephalic/atraumatic. EYES: Normal reaction of pupils, equal size. Conjunctiva pink, sclera white. NOSE: Clear with pink turbinates. THROAT: No erythema or exudates. NECK: No masses, no JVD, no thyroid enlargement, no adenopathy. CHEST: No chest wall deformity. Symmetrical expansion. LUNGS: Equal air entry with no crackles, wheeze, rhonchi or dullness. CVS: Regular rate and rhythm, normal S1 and S2, no gallops, no murmurs, no rubs ABDOMEN: Soft, nontender. No hepatosplenomegaly, normal bowel sounds, no guarding or rigidity. EXTREMITIES: No clubbing, no edema, no cyanosis, 2+ pulses and upper and lower extremities. MUSCULOSKELETAL: Muscle strength and tone normal. SPINE: No scoliosis or deformity SKIN: No rashes CENTRAL NERVOUS SYSTEM: Sedated and intubated No focal deficits, tone is normal in all 4 extremities. - Labs CBC & Chem 7: 03/01/21 05:15 03/01/21 05:15 Labs: Abnormal Lab Results - Last 24 Hours (Table) 02/28/21 03/01/21 03/01/21 Range/Units 03:40 05:15 05:15 WBC 15.1 H (3.8-10.6) k/uL RBC 4.18 L (4.30-5.90) m/uL Plt Count 139 L (150-450) k/uL Neutrophils # 12.2 H (1.3-7.7) k/uL ABG Total CO2 (19-24) mmol/L ABG O2 Saturation (94-97) % Sodium 135 L (137-145) mmol/L Glucose 113 H (74-99) mg/dL AST 465 H (17-59) U/L ALT 319 H (4-49) U/L Total Protein 5.9 L (6.3-8.2) g/dL Albumin 3.4 L (3.5-5.0) g/dL Procalcitonin 0.13 H (0.02-0.09) ng/mL 03/01/21 Range/Units 05:40 WBC (3.8-10.6) k/uL RBC (4.30-5.90) m/uL Plt Count (150-450) k/uL Neutrophils # (1.3-7.7) k/uL ABG Total CO2 26 H (19-24) mmol/L ABG O2 Saturation 97.5 H (94-97) % Sodium (137-145) mmol/L Glucose (74-99) mg/dL AST (17-59) U/L ALT (4-49) U/L Total Protein (6.3-8.2) g/dL Albumin (3.5-5.0) g/dL Procalcitonin (0.02-0.09) ng/mL Microbiology - Last 24 Hours (Table) 02/28/21 15:48 Gram Stain - Preliminary Sputum Sputum Culture - Preliminary Assessment and Plan Plan: #1. Acute alcohol withdrawal with acute delirium tremens requiring intubation and mechanical ventilator support on 02/27/2021. Patient remains on Diprivan @ 35 and Ativan currently at 4 mg/h. #2. Daily and chronic alcohol abuse, of 1.21 fifth a day of alcohol, was started on Campral for psychiatric services #3. Marijuana use #4. Chronic tobacco dependence #5. Hypokalemia, likely related to chronic alcoholism, dehydration, corrected #6. Congenital left hip dysplasia #7. Depression Plan: Wean off prop and keep Ativan drip for now Continues on Ativan at 2mg per hour Today's chest x-ray, blood gases and labs reviewed Continue IV Zosyn IVF @ 75 cc hr Continue Valium, Campral Follow up labs tomorrow including CBC, CMP, follow-up chest x-ray and blood gases US of the Liver We'll attempt sedation holiday today, possible extubation Off the propofol and my plan is to keep Ativan drip running for now. The patient will be gradually aroused. If he is able to give us a spontaneous breathing trial and good weaning parameters and he feels remains nonagitated, the patient may be considered for extubation. Otherwise, he is going to be placed back on sedation. He was dynamically stable. Monitor fever profile. We'll continue to follow. No make further recommendations based on his progress. Critically care evaluation, more than 30 minutes. Time with Patient: Greater than 30
--- NOTE | 2021-03-01 10:14 | US ---
EXAMINATION TYPE: US liver DATE OF EXAM: 03/01/2021 COMPARISON: NONE CLINICAL HISTORY: elevated lft. ICU patient. Intubated. ETOH. EXAM MEASUREMENTS: Liver Length: 21.7 cm Gallbladder Wall: 0.1 cm CBD: 0.2 cm Right Kidney: 12.0 x 5.7 x 4.1 cm Pancreas: wnl Liver: Enlarged in size. Trace amount of fluid seen adjacent to liver. Echogenic in appearance. Gallbladder: wnl, LLD images not taken due to intubated status Evidence for sonographic Adams's sign: neg CBD: wnl Right Kidney: No hydronephrosis or masses seen IMPRESSION: 1. Hepatomegaly correlate for hepatocellular disease, hepatic steatosis or hepatitis. Trace amount of fluid surrounding the liver.
[2021-03-01 11:12] VITALS: BMI 18.6
[2021-03-01] MEDS: FOLIC ACID 1 MG TAB PO SCH (11:18)
[2021-03-01] MEDS: MAGNESIUM OXIDE 400 MG TAB PO SCH ×2 (11:18→21:16)
[2021-03-01] MEDS: ACAMPROSATE CALCIUM 333 MG TABLET.DR PO SCH ×3 (11:18→21:14)
[2021-03-01] MEDS: THIAMINE 100 MG TAB PO SCH ×2 (11:19→19:04)
[2021-03-01] MEDS: NICOTINE 21MG/24HR PATCH TRANSDERM SCH (11:20)
[2021-03-01] MEDS: CHLORHEXIDINE GLUCONATE 15 ML CUP MUCOUS MEM SCH (11:20)
[2021-03-01] MEDS: diazePAM 5 MG TAB PO SCH ×3 (11:20→21:14)
[2021-03-01] MEDS: SODIUM CHLORIDE 0.9% 1,000 ML IV SCH (11:26)
[2021-03-01] MEDS: MULTIVITAMINS, THERA 1 EACH TAB PO SCH (11:26)
[2021-03-01] MEDS: PANTOPRAZOLE 40 MG/10 ML VIAL IV SCH (11:41)
[2021-03-01] MEDS: DOXEPIN 10 MG CAP PO SCH (21:18)
[2021-03-02] MEDS: SODIUM CHLORIDE 0.9% 1,000 ML IV SCH ×2 (01:58→11:45)
[2021-03-02] MEDS: PIPERACILLIN-TAZOBACTAM 3.375 GM in SODIUM CHLORIDE 0.9% 100 ML IVPB SCH ×3 (08:13→16:07)
[2021-03-02] MEDS: FOLIC ACID 1 MG TAB PO SCH (08:14)
[2021-03-02] MEDS: PANTOPRAZOLE 40 MG/10 ML VIAL IV SCH (08:14)
[2021-03-02] MEDS: MULTIVITAMINS, THERA 1 EACH TAB PO SCH (08:14)
[2021-03-02] MEDS: NICOTINE 21MG/24HR PATCH TRANSDERM SCH (08:14)
[2021-03-02] MEDS: MAGNESIUM OXIDE 400 MG TAB PO SCH ×2 (08:14→21:12)
[2021-03-02] MEDS: THIAMINE 100 MG TAB PO SCH ×2 (08:14→16:07)
[2021-03-02] MEDS: ACAMPROSATE CALCIUM 333 MG TABLET.DR PO SCH ×3 (08:15→21:16)
[2021-03-02] MEDS: diazePAM 5 MG TAB PO SCH ×3 (08:15→21:12)
--- NOTE | 2021-03-02 11:27 | P.PN ---
<Minnie Menendez M - Last Filed: 03/02/21 11:27> Subjective Progress Note Date: 03/02/21 Principal diagnosis: Acute delirium tremens This is a 25-year-old male patient who follows with Dr. Lyle is his primary care provider. He has a history of disease disease of the left hip, depression, chronic tobacco dependence, daily alcohol abuse. He was brought into the emergency room yesterday by his father for significant shaking delirium tremens altered mental status after not drinking for 4 days.appendectomy was originally admitted to the selective care unit however last evening and early this morning he developedincreasing restlessness, agitation transferred to the intensive care unit subsequently placed on the mechanical ventilator. Chest x- ray shows no acute cardiopulmonary process. White count 10.5. Hemoglobin 14.2. Sodium 137. Potassium 3.2. Creatinine 0.93. Glucose 122. AST 172. ALT 91. Urine drug screen was positive for marijuana.alcohol level less than 10. Rfid Technician danika virus by PCR not detected. Current vent settings are assist control at a rate of 20, tidal on 450, FiO2 40% and a PEEP of 5. Morning blood gases revealed a PaO2 of 278, pCO2 36 and a pH is 7.42. That was on 50% FiO2. He is currently sedated on propofol 50 mcg/kg/m. He is on Ativan drip at 6 mg per hour. Normal saline at 20 ML's per hour. On 02/28/2021 patient seen in follow-up in the intensive care unit, he remains sedated, and intubated, on assist-control mode of ventilation with a rate of 20, tidal level is 450, FiO2 40% and PEEP of 5, this morning's blood gas shows pO2 136, pCO2 of 34, and pH of 7.46 and this was done the above mentioned vent settings, FiO2 was subsequently dropped down to 30%, and rate was dropped down to 18. Is currently on Diprivan at 50 mics per kilo per minute, Ativan is at 4 mg per hour, and 0.9 normal saline at rate of 20 ML per hour. Hemodynamically has been stable, he is in sinus mechanism, with a rate of 87, no tachycardia, blood pressure is 127/74, not requiring any vasopressor support, today's chest x-ray has been reviewed showing clear lungs without pleural effusion or pneumothorax. Today's labs have been reviewed , white count is 9.8, hemoglobin is 14.5, sodium is 136, potassium is 3.6, chloride is 105, CO2 is 22, BUN is 8, creatinine 0.82, urinalysis without sign of infection, did have a fever this morning with a temp of 102.5F. This morning he was also given a light sedation holiday however patient was extremely agitated and he was difficult to get him to follow any commands. he was subsequently re-sedated. On 03/02/2021 patient seen in follow-up on medical surgical floor, she was successfully weaned and extubated from the mechanical ventilator on 03/01/2021, tolerating extubation quite well so far, he is on room air pulse ox is 100%, vital signs have been stable, his been afebrile, no cough, no wheezing, no phlegm production, no complaints of chest pain, he does complain of mild headaches, but no diaphoresis, no confusion no hallucinations. Seems very comfortable Tolerating oral intake. Follow pro-calcitonin did come back elevated at 1.41 suggesting possibility of bacterial infection with a possibility of pneumonia, his chest x-ray showed right perihilar infiltrate. Vital signs have been stable, recent has been afebrile. Urine culture showed many polymorphonuclear leukocytes, many gram-positive cocci and rare gram- negative bacilli, final culture is pending, blood cultures have also been sent, and no growth thus far. Objective - Vital Signs Vital signs: Vital Signs Temp 97.6 F 03/02/21 07:33 Pulse 58 L 03/02/21 07:33 Resp 17 03/02/21 07:33 BP 113/77 03/02/21 07:33 Pulse Ox 100 03/02/21 07:33 Intake & Output 03/01/21 03/02/21 03/02/21 18:59 06:59 18:59 Intake Total 535 75 180 Output Total 445 Balance 90 75 180 Weight 58.9 kg Intake: IV 535 75 0.9 NaCl- 435 75 Piperacillin-Tazobactam 3 100 .375 gm In Sodium Chloride 0.9% 100 ml @ 25 mls/hr IVPB Q8HR [facility] Rx# :[id number] Oral 180 Output: Urine 445 Other: Voiding Method Indwelling Catheter Toilet Toilet Urinal Urinal # Voids 1 ABP, PAP, CO, CI - Last Documented Arterial Blood Pressure 100/63 - Exam GENERAL EXAM: Awake and alert, oriented 3 25-year-old white male, room air, breathing comfortably, comfortable in no apparent distress. HEAD: Normocephalic/atraumatic. EYES: Normal reaction of pupils, equal size. Conjunctiva pink, sclera white. NOSE: Clear with pink turbinates. THROAT: No erythema or exudates. NECK: No masses, no JVD, no thyroid enlargement, no adenopathy. CHEST: No chest wall deformity. Symmetrical expansion. LUNGS: Equal air entry with no crackles, wheeze, rhonchi or dullness. CVS: Regular rate and rhythm, normal S1 and S2, no gallops, no murmurs, no rubs ABDOMEN: Soft, nontender. No hepatosplenomegaly, normal bowel sounds, no guarding or rigidity. EXTREMITIES: No clubbing, no edema, no cyanosis, 2+ pulses and upper and lower extremities. MUSCULOSKELETAL: Muscle strength and tone normal. SPINE: No scoliosis or deformity SKIN: No rashes CENTRAL NERVOUS SYSTEM: Awake and alert oriented times three. No focal deficits, tone is normal in all 4 extremities. - Labs CBC & Chem 7: 03/01/21 05:15 03/01/21 05:15 Labs: Microbiology - Last 24 Hours (Table) 02/28/21 16:36 Blood Culture - Preliminary Blood No Growth after 24 hours Assessment and Plan Plan: Assessment: #1. Acute alcohol withdrawal with acute delirium tremens requiring intubation and mechanical ventilator support on 02/27/2021. Successfully weaned and extubated on 03/01/2021. Tolerating extubation well so far #2. Possible aspiration pneumonia, patient has been covered with Zosyn, initial pro-calcitonin level was low however follow progesterone level came back elevated at 1.41, patient remains on Zosyn, chest x-ray showed right perihilar infiltrate #3. Daily and chronic alcohol abuse, of 1.21 fifth a day of alcohol, was started on [facility] for psychiatric services #4. Marijuana use #5. Chronic tobacco dependence #6. Hypokalemia, likely related to chronic alcoholism, dehydration, corrected #7. Congenital left hip dysplasia #8. Depression Plan: Continue current antibiotic coverage Follow pro-calcitonin level is elevated Awaiting final results of the sputum culture, blood culture has shown no growth No complaints of shortness of breath or cough, no phlegm production or chest pain Follow-up two-view chest x-ray today Otherwise clinically has remained stable We'll continue to follow I performed a history & physical examination of the patient and discussed their management with my nurse practitioner, Minnie Menendez. I reviewed the nurse practitioner's note and agree with the documented findings and plan of care. Lung sounds are positive fordim breath sounds throughout the lung sherwood. The findings and the impression was discussed with the patient. I attest to the documentation by the nurse practitioner. Time with Patient: Less than 30 <Guerda Abad - Last Filed: 03/02/21 16:31> Objective - Vital Signs Vital signs: Vital Signs Temp 98.8 F 03/02/21 14:12 Pulse 61 03/02/21 14:12 Resp 17 03/02/21 14:12 BP 130/75 03/02/21 14:12 Pulse Ox 99 03/02/21 14:12 Intake & Output 03/01/21 03/02/21 03/02/21 18:59 06:59 18:59 Intake Total 535 75 180 Output Total 445 Balance 90 75 180 Weight 58.9 kg Intake: IV 535 75 0.9 NaCl- 435 75 Piperacillin-Tazobactam 3 100 .375 gm In Sodium Chloride 0.9% 100 ml @ 25 mls/hr IVPB Q8HR [facility] Rx# :[id number] Oral 180 Output: Urine 445 Other: Voiding Method Indwelling Catheter Toilet Toilet Urinal Urinal # Voids 1 ABP, PAP, CO, CI - Last Documented Arterial Blood Pressure 100/63 - Labs CBC & Chem 7: 03/01/21 05:15 03/01/21 05:15 Labs: Microbiology - Last 24 Hours (Table) 02/28/21 16:36 Blood Culture - Preliminary Blood No Growth after 24 hours Assessment and Plan Plan: I reviewed the follow-up chest x-ray from today showed right lower lobe pulmon tomás infiltrates which is improving and based on that we are going to continue the antibiotics. Recommend discontinuing IV Zosyn considering the patient to oral Augmentin. He is hemodynamically stable. His room air oxygen is around 99%. Pulmonary critical care services we'll sign off the case.
--- NOTE | 2021-03-02 12:48 | XR ---
EXAMINATION TYPE: XR chest 2V DATE OF EXAM: 03/02/2021 COMPARISON: 03/01/2021 HISTORY: 25-year-old male follow-up pneumonia TECHNIQUE: PA and lateral views FINDINGS: Heart normal size. Aorta and pulmonary vasculature within normal limits. Some residual patchy density remains at the right infrahilar region. This shows some improvement from yesterday. No new consolida tion or pleural effusion. IMPRESSION: Mild right infrahilar infiltrate similar to slightly improved from yesterday.
--- NOTE | 2021-03-02 14:41 | P.PN ---
Subjective Progress Note Date: 03/02/21 This is a 25-year-old gentleman that presented to the ER with complaints of active DTs, positive night sweats,. States he is on Klonopin which he states is not helping him.Reports he drinks approximately 2 pints to 1-1/2 fifths of alcohol per day. Vague historian. Denies any syncope. Denies any lighthe adedness dizziness or focal deficits. Lipase 457. Denies any nausea vomiting or diarrhea. Denies any abdominal pain. Denies any chest pain, palpitations or shortness of breath. Sodium 133, potassium 3.4, renal function stable, glucose 123 magnesium 0.7, total bili 1.0, AST 117, ALT 67 .Toxicology screen detected marijuana, serum alcohol less than 10 .Reports he also had a seizure while in the ER, ER report currently unavailable in EHR.received IV fluid hydration with CIWA protocol. February 27 2021:25-year-old known alcoholic became more and more agitated floor yesterday afternoon and evening. He eventually needed to be in soft restraints. Haldol was ordered initially but inadvertently put in for a 1 time dose instead of hourly. The patient became more and more agitated and resisted resistant to oral Ativan hourly and Haldol given. Eventually required a consultation with critical care and transferred to intensive care unit for Ativan drip. The patient was intubated and still sedated at that point with propofol. He was found resting comfortably in the intensive care unit currently. He is mechanically ventilated with an FiO2 of 40% and PEEP of 5. Blood pressure heart rate rest her rate are stable. Labs this morning show a normal WBC count and hemoglobin. Blood gases showed a pH of 7.42 with PCO2 36 and a PO2 of 278. Chemistries show a hypokalemia with a potassium of 3.2. BUN 8 creatinine 0.93. Glucose was 120 this morning. AST and ALT are elevated at 172 and 91 r espectively. Urinalysis is normal 2. Chest x-ray showed improved positioning the endotracheal tube. Lungs remain clear. The patient's mother was at bedside today. We discussed his care and current state. 02/28/2021: This patient remains intubated and sedated. Propofol and Ativan due to severe delirium tremens and alcohol withdrawal. Vital signs remained stable today. FiO2 is now 30% with a PEEP of 5. Her rate is now mechanically ventilated and 18. Heart rate and blood pressure remains stable. MAXIMUM TEMPERATURE is 102.5. He has an indwelling Stovall catheter. I's and O's currently showed a positive balance of 269, pulse width 544 in and 275 out. Stool is noted today. Laboratory studies show a normal CBC except for an MCV of 100.1. Platelets are slightly decreased at 140. There is a slight left shift with absolute neutrophil count of 8. PH is 7.46 with a PCO2 of 34 and PO2 136. Blood chemistries from early this morning showed a potassium of 3.6. Glucose is 101. Chest x-ray shows clear. Medical care progress note reviewed. 03/02/2021 Extubated yesterday, maintaining O2 sats in the high 90s to 100%.Transferred to telemetry unit during the night. CIWA score 0 . Last night nursing reported patient noticed some clothing in the corner of his room and reported he saw a cat in the corner. Patient is impulsive/forgetful; this morning staff reports patient unaware of his actions, as he held his phone under running water while telling his RN that he had an" A & B?", yet coherent discussion, alert and oriented 3. Prior to the ICU he was evaluated by psychiatry and placed on Campral, doxepin with Valium dose increased in addition to CIWA protocol. Denies any chest pain, palpitations or shortness of breath. Liver ultrasound reported hepatomegaly, possibly hepatocellular disease, hepatic steatosis or hepatitis. Trace amount of fluid surrounding the liver. Pro- calcitonin elevated, 1.41. Chest x-ray reportedly mild right infrahilar infiltrate slimmer/slightly improved from yesterday similar to slightly impression yesterday. Sputum culture pending, preliminary blood culture no growth at 24 hours. Objective - Vital Signs Vital signs: Vital Signs Temp 97.6 F 03/02/21 07:33 Pulse 58 L 03/02/21 07:33 Resp 17 03/02/21 07:33 BP 113/77 03/02/21 07:33 Pulse Ox 100 03/02/21 07:33 Intake & Output 03/01/21 03/02/21 03/02/21 18:59 06:59 18:59 Intake Total 535 75 180 Output Total 445 Balance 90 75 180 Weight 58.9 kg Intake: IV 535 75 0.9 NaCl- 435 75 Piperacillin-Tazobactam 3 100 .375 gm In Sodium Chloride 0.9% 100 ml @ 25 mls/hr IVPB Q8HR [facility] Rx# :[id number] Oral 180 Output: Urine 445 Other: Voiding Method Indwelling Catheter Toilet Toilet Urinal Urinal # Voids 1 ABP, PAP, CO, CI - Last Documented Arterial Blood Pressure 100/63 - Exam PHYSICAL EXAM: VITAL SIGNS: As above GENERAL: Sitting up in bed, alert and oriented 3, coherent discussion but with Dts, encephalopathy HEENT: Conjunctivae normal. eyes normal. Oral mucosa moist NECK: No JVD. No thyroid enlargement. No LNs CARDIOVASCULAR: S1, S2 regular.No murmur. RESPIRATION: Breath sounds diminished in the bases. No rhonchi or crackles. No bronchial breathing. ABDOMEN: Soft, nontender. No guarding. no masses palpable.No ascites, No hepatosplenomegaly.Bowel sounds heard. LEGS: No edema. no swelling, no clubbing, no cyanosis. NERVOUS SYSTEM: Cranial N 2-12 grossly normal.Moves all 4 limbs. No focal deficits. Strength and sensation grossly intact. Skin: warm and dry, no rash - Labs CBC & Chem 7: 03/01/21 05:15 03/01/21 05:15 Labs: Microbiology - Last 24 Hours (Table) 02/28/21 16:36 Blood Culture - Preliminary Blood No Growth after 24 hours Assessment and Plan Assessment: Alcohol intoxication, DTs Alcohol encephalopathy, acute, possibly acute on chronic Acute hypoxic respiratory failure secondary to the above, status post ventilator-dependent. Reports seizure during the ER visit in a patient with History of Alcohol-induced seizures Alcohol dependence, on Klonopin. Mood disorder Hyponatremia Hypokalemia Hypomagnesemia Hepatomegaly, possibly hepatocellular disease, hepatic steatosis or hepatitis. Plan: Continue on current medication regime ,monitoring and symptomatic treatment. Acute hepatitis panel pending.[facility] protocol. Requesting psychiatry follow-up visit regarding further adjustment with med regimen.Prognosis guarded given multiple complex medical issues. The impression and plan of care has been dictated as directed. : I performed a history and examination of this patient, discussed the same with the dictator. I agree with the dictator's note ,documented as a scribe. Any additional findings or plans will be noted.
[2021-03-02] MEDS: AMOXIC-POT CLAV 875-125MG 1 EACH TAB PO SCH (21:12)
[2021-03-02] MEDS: DOXEPIN 10 MG CAP PO SCH (21:12)
[2021-03-03] MEDS: SODIUM CHLORIDE 0.9% 1,000 ML IV SCH ×2 (03:23→14:45)
[2021-03-03 05:59] LABS: Hepatitis A Antibody IgM Nonreactive (Nonreactive); Hepatitis B Core IgM Nonreactive (Nonreactive); Hepatitis B Surface Antigen Nonreactive (Nonreactive); Hepatitis C IgG Antibody Nonreactive (Nonreactive)
[2021-03-03] MEDS: MULTIVITAMINS, THERA 1 EACH TAB PO SCH (08:57)
[2021-03-03] MEDS: NICOTINE 21MG/24HR PATCH TRANSDERM SCH (08:57)
[2021-03-03] MEDS: MAGNESIUM OXIDE 400 MG TAB PO SCH ×2 (08:57→21:00)
[2021-03-03] MEDS: PANTOPRAZOLE 40 MG/10 ML VIAL IV SCH (08:58)
[2021-03-03] MEDS: ACAMPROSATE CALCIUM 333 MG TABLET.DR PO SCH ×3 (08:58→21:01)
[2021-03-03] MEDS: THIAMINE 100 MG TAB PO SCH ×2 (08:58→17:09)
[2021-03-03] MEDS: diazePAM 5 MG TAB PO SCH ×3 (08:58→21:00)
[2021-03-03] MEDS: FOLIC ACID 1 MG TAB PO SCH (08:58)
[2021-03-03] MEDS: AMOXIC-POT CLAV 875-125MG 1 EACH TAB PO SCH ×2 (08:59→21:01)
[2021-03-03] MEDS: IPRATROPIUM-ALBUTEROL 3 ML NEB INHALATION PRN (13:03)
[2021-03-03] MEDS ORDERED: OLANZapine 2.5 MG TAB PO ONE (13:30)
[2021-03-03] MEDS ORDERED: OLANZapine 2.5 MG TAB PO PRN (13:30)
--- NOTE | 2021-03-03 13:37 | P.PN ---
Progress Note - Text Progress Note Date: 03/03/21 Interval History: Patient was seen today for psychiatric follow-up regarding patient's alcohol a buse/severe withdrawals and hallucinations. Patient was recently in the ICU and was intubated for delirium tremens and was extubated yesterday and transferred to the general medical floors. Psychiatry was asked/requested to follow-up with patient regarding his medications and his condition. Patient continues on Valium 10 mg 3 times a day and doxepin 10 mg at nighttime. Patient was seen in the room today with his girlfriend. He was receiving a breathing treatment. He claims that he is doing better overall and claims that he still feeling confused at times. He states that his withdrawal symptoms have improved and is feeling less tremulous. He does claim that he feels restless at times and has mild anxiety. He claims that he was having some hallucinations yesterday of seeing things in his room however not today. She is denying any depression. He states that he slept very little last night and has a fair appetite. He continues to be superficial about his need to stay sober from alcohol and is refusing rehab. At this time patient denies any suicidal or homical ideations, intent or plan. Patient denies any current auditory, visual hallucinations and denies any paranoia or delusions. Patient denies any side effects from the medications and has been compliant with meds. Mental Status Exam: General Appearance: Patient appears to be thin, stated age is alert, pleasant, and attempts to cooperative. Patient appears to have fair hygiene and grooming wearing hospital gown with improving eye contact. Behavior: Patient is calmly lying in bed without any agitated behavior. restless at times. confused at times Speech: Patient's speech is fluent and nonpressured. Mood/Affect: Patient reports their mood is "a bit anxious", affect is congruent Suicidality/Homicidality: Patient denies having any suicidal or homicidal ideation intent or plan. Perceptions: Patient admits to visual and auditory hallucinations. Though content/process: More goal oriented. [place]. Not endorsing paranoia or delusions today. Memory and concentration: AOX3, grossly intact for the purposes of this session. Can spell "WORLD" backwards Judgment and insight: Chronically poor, improving mildly IMPRESSIONS: Major depressive disorder Alcohol use disorder, severe Delirium Tremens cannabis used disorder nicotine dependence PLAN: -At this time patient DOES NOT meet criteria for inpatient psychiatric admission. -Would recommend the following medication changes/additions: campral tid 66 mg for etoh cravings, decreased valium 5 mg po qid for withdrawal, continue tapering down. continue with ativan prn for w/d. added zyprexa 5 mg qhs for psychosis/mood stabilization and insomnia. Zyprexa prns for acute psychosis/agitation -[facility] protocol with PRN Ativan for alcohol withdrawal. Continue to monitor vital signs. -thiamine, FA and multivitamin -patient is refusing rehab at this time. -journeyman sheet metal worker to provide patient with outpatient mental health/psychiatry resources for appropriate follow up upon discharge -Job Printer Apprentice spoke with patient about substance abuse and the harmful effects on medical and mental health, patient verbally understood and agreed. -journeyman sheet metal worker to provide patient substance use treatment resources including AA/NA meetings in the community. -Communicated plan to patient's nurse and hospitalist -Will continue to follow along tomorrow and likely sign off then -Please contact with any questions.
--- NOTE | 2021-03-03 14:59 | P.PN ---
Subjective Progress Note Date: 03/03/21 This is a 25-year-old gentleman that presented to the ER with complaints of active DTs, positive night sweats,. States he is on Klonopin which he states is not helping him.Reports he drinks approximately 2 pints to 1-1/2 fifths of alcohol per day. Vague historian. Denies any syncope. Denies any lighthe adedness dizziness or focal deficits. Lipase 457. Denies any nausea vomiting or diarrhea. Denies any abdominal pain. Denies any chest pain, palpitations or shortness of breath. Sodium 133, potassium 3.4, renal function stable, glucose 123 magnesium 0.7, total bili 1.0, AST 117, ALT 67 .Toxicology screen detected marijuana, serum alcohol less than 10 .Reports he also had a seizure while in the ER, ER report currently unavailable in EHR.received IV fluid hydration with CIWA protocol. February 27 2021:25-year-old known alcoholic became more and more agitated floor yesterday afternoon and evening. He eventually needed to be in soft restraints. Haldol was ordered initially but inadvertently put in for a 1 time dose instead of hourly. The patient became more and more agitated and resisted resistant to oral Ativan hourly and Haldol given. Eventually required a consultation with critical care and transferred to intensive care unit for Ativan drip. The patient was intubated and still sedated at that point with propofol. He was found resting comfortably in the intensive care unit currently. He is mechanically ventilated with an FiO2 of 40% and PEEP of 5. Blood pressure heart rate rest her rate are stable. Labs this morning show a normal WBC count and hemoglobin. Blood gases showed a pH of 7.42 with PCO2 36 and a PO2 of 278. Chemistries show a hypokalemia with a potassium of 3.2. BUN 8 creatinine 0.93. Glucose was 120 this morning. AST and ALT are elevated at 172 and 91 r espectively. Urinalysis is normal 2. Chest x-ray showed improved positioning the endotracheal tube. Lungs remain clear. The patient's mother was at bedside today. We discussed his care and current state. 02/28/2021: This patient remains intubated and sedated. Propofol and Ativan due to severe delirium tremens and alcohol withdrawal. Vital signs remained stable today. FiO2 is now 30% with a PEEP of 5. Her rate is now mechanically ventilated and 18. Heart rate and blood pressure remains stable. MAXIMUM TEMPERATURE is 102.5. He has an indwelling Stovall catheter. I's and O's currently showed a positive balance of 269, pulse width 544 in and 275 out. Stool is noted today. Laboratory studies show a normal CBC except for an MCV of 100.1. Platelets are slightly decreased at 140. There is a slight left shift with absolute neutrophil count of 8. PH is 7.46 with a PCO2 of 34 and PO2 136. Blood chemistries from early this morning showed a potassium of 3.6. Glucose is 101. Chest x-ray shows clear. Medical care progress note reviewed. 03/02/2021 Extubated yesterday, maintaining O2 sats in the high 90s to 100%.Transferred to telemetry unit during the night. CIWA score 0 . Last night nursing reported patient noticed some clothing in the corner of his room and reported he saw a cat in the corner. Patient is impulsive/forgetful; this morning staff reports patient unaware of his actions, as he held his phone under running water while telling his RN that he had an" A & B?", yet coherent discussion, alert and oriented 3. Prior to the ICU he was evaluated by psychiatry and placed on Campral, doxepin with Valium dose increased in addition to CIWA protocol. Denies any chest pain, palpitations or shortness of breath. Liver ultrasound reported hepatomegaly, possibly hepatocellular disease, hepatic steatosis or hepatitis. Trace amount of fluid surrounding the liver. Pro- calcitonin elevated, 1.41. Chest x-ray reportedly mild right infrahilar infiltrate slimmer/slightly improved from yesterday similar to slightly impression yesterday. Sputum culture pending, preliminary blood culture no growth at 24 hours. 03/03/2021 hallucinations improved,.chest x-ray reported slight improvement from yesterday. Reevaluated by psychiatry with recommendations noted and appreciated including no Naltrexone secondary to liver damage. Significant other and father in room, family discussion/updated by Dr. Lyle PCP regarding evidence of liver cirrhosis secondary to daily alcohol abuse. Objective - Vital Signs Vital signs: Vital Signs Temp 97.6 F 03/03/21 07:46 Pulse 50 L 03/03/21 07:46 Resp 16 03/03/21 07:46 BP 130/78 03/03/21 07:46 Pulse Ox 98 03/03/21 07:46 Intake & Output 03/02/21 03/03/21 03/03/21 18:59 06:59 18:59 Intake Total 180 Balance 180 Intake: Oral 180 Other: Voiding Method Toilet Toilet Urinal Urinal # Voids 6 2 # Bowel Movements 2 ABP, PAP, CO, CI - Last Documented Arterial Blood Pressure 100/63 - Exam PHYSICAL EXAM: VITAL SIGNS: As above GENERAL: Sitting up in bed, alert and oriented 3,NAD, teary-eyed during family discussion. HEENT: Conjunctivae normal. eyes normal. Oral mucosa moist. CARDIOVASCULAR: S1, S2 regular.No murmur. RESPIRATION: Breath sounds diminished in the bases. ABDOMEN: Soft, nontender. No guarding. no masses palpable.Bowel sounds heard. LEGS: No edema. no swelling, no clubbing, no cyanosis. NERVOUS SYSTEM: Cranial N 2-12 grossly normal.Moves all 4 limbs. No focal deficits. Strength and sensation grossly intact. Skin: warm and dry, no rash - Labs CBC & Chem 7: 03/01/21 05:15 03/01/21 05:15 Labs: Microbiology - Last 24 Hours (Table) 02/28/21 16:36 Blood Culture - Preliminary Blood No Growth after 48 hours Assessment and Plan Assessment: Alcohol intoxication, DTs Alcohol encephalopathy, acute, possibly acute on chronic Acute hypoxic respiratory failure secondary to the above, status post ventilator-dependent. Reports seizure during the ER visit in a patient with History of Alcohol-induced seizures Alcohol dependence, with evidence of liver cirrhosis. Outpatient GI follow-up recommended Mood disorder Hyponatremia Hypokalemia Hypomagnesemia Hepatomegaly, possibly hepatocellular disease, hepatic steatosis or hepatitis. Plan: Continue on current medication regime ,monitoring and symptomatic treatment. Ammonia level ordered. Discharge planning in progress for tomorrow, discussed with psychiatry.patient will be discharged home tomorrow pending final DC recommendations as per psychiatry's reevaluation tomorrow. Prognosis guarded given multiple complex medical issues. The impression and plan of care has been dictated as directed. : I performed a history and examination of this patient, discussed the same with the dictator. I agree with the dictator's note ,documented as a scribe. Any additional findings or plans will be noted.
[2021-03-03] MEDS ORDERED: OLANZapine 5 MG TAB PO SCH (21:00)
[2021-03-03] MEDS: HALOPERIDOL LACTATE 5 MG/ML 1 ML VIAL IM SCH ×6 (23:48→23:53)
[2021-03-04] MEDS: SODIUM CHLORIDE 0.9% 1,000 ML IV SCH (05:23)
[2021-03-04 08:44] VITALS: BP 114/75; RESP 16; TEMP 98
[2021-03-04] MEDS: diazePAM 5 MG TAB PO SCH (08:44)
[2021-03-04] MEDS: MAGNESIUM OXIDE 400 MG TAB PO SCH (08:44)
[2021-03-04] MEDS: PANTOPRAZOLE 40 MG/10 ML VIAL IV SCH (08:44)
[2021-03-04] MEDS: FOLIC ACID 1 MG TAB PO SCH (08:44)
[2021-03-04] MEDS: MULTIVITAMINS, THERA 1 EACH TAB PO SCH (08:44)
[2021-03-04] MEDS: THIAMINE 100 MG TAB PO SCH (08:44)
[2021-03-04] MEDS: NICOTINE 21MG/24HR PATCH TRANSDERM SCH (08:44)
[2021-03-04] MEDS: AMOXIC-POT CLAV 875-125MG 1 EACH TAB PO SCH (08:45)
[2021-03-04] MEDS: ACAMPROSATE CALCIUM 333 MG TABLET.DR PO SCH (08:45)
[2021-03-04 11:05] LABS: Basophils # (A) 0.08 X 10*3/uL (0.00-0.10); Basophils % (A) 1.2 %; Eosinophils # (A) 0.11 X 10*3/uL (0.04-0.35); Eosinophils % (A) 1.6 %; HCT 44.6 % (39.6-50.0); HGB 14.6 g/dL (13.0-17.0); Lymphocytes # (A) 2.49 X 10*3/uL (0.90-5.00); Lymphocytes % (A) 37.2 %; MCH 32.3 pg (27.0-32.0); MCHC 32.7 g/dL (32.0-37.0); MCV 98.7 fL (80.0-97.0); Mean Platelet Volume 10.2 fL (9.5-12.2); Monocytes % (A) 14.9 %; Neutrophils % (A) 41.8 %; Platelet Count 290 X 10*3/uL (140-440); RBC 4.52 X 10*6/uL (4.40-5.60); RDW 14.7 % (11.5-14.5)
[2021-03-04 11:21] LABS: African American GFR (CKD) 152.4 (60.0-200.0); Albumin 3.7 g/dL (3.8-4.9); Albumin/Globulin Ratio 1.56 (1.60-3.17); Anion Gap 12.5 mmol/L (10.00-18.00); BUN/Creat Ratio 14.91 Ratio (12.00-20.00); Blood Urea Nitrogen 10.2 mg/dL (9.0-27.0); Calcium 9.2 mg/dL (8.7-10.3); Carbon Dioxide 22.1 mmol/L (20.0-27.5); Globulin 2.4 g/dL (1.6-3.3); Non-African American GFR(CKD) 131.5 (60.0-200.0); Potassium 3.8 mmol/L (3.5-5.5); Total Bilirubin 0.4 mg/dL (0.30-1.20); Total Protein 6.1 g/dL (6.2-8.2)
[2021-03-04 12:13] LABS: INR 0.93 (0.90-1.11); Prothrombin Time 10.3 sec (9.9-11.9)
[2021-03-04] MEDS: IPRATROPIUM-ALBUTEROL 3 ML NEB INHALATION PRN (12:54)
[2021-03-04 13:02] VITALS: PULSE 70
--- NOTE | 2021-03-04 13:45 | P.PN ---
Progress Note - Text Progress Note Date: 03/04/21 Interval History: Patient was seen today for psychiatric follow-up regarding patient's alcohol a buse/severe withdrawals and hallucinations. Curtain Cutter received a message from the patient's nurse overnight the patient began "hallucinating" after taking the Zyprexa dose during the day. Patient was seen today in his room and was dressed in street clothing and speaking on the cell phone. After hanging up the phone and he claims that he got his job back and was happy. He appeared to be fairly future oriented was goal oriented and logical. He did not appear to be confused today. He claims that his mood has been improving. He states that initially the Zyprexa made him feel "off" and states that when he looked out the window if she saw "weird images". He states that afterwards it went away after 10 seconds and states that the rest of his eating went well and after taking the nighttime dose he slept throughout the night well. He is denying any anxiety today. He claims that his withdrawal symptoms have been improving significantly. He continues to refuse rehab however is agreeable to continue taking acamprosate. At this time patient denies any suicidal or homical ideations, intent or plan. Patient denies any current auditory, visual hallucinations and denies any paranoia or delusions. Patient denies any side effects from the medications and has been compliant with meds. Mental Status Exam: General Appearance: Patient appears to be thin, stated age is alert, pleasant, and attempts to cooperative. Patient appears to have fair hygiene and grooming wearing hospital gown with improving eye contact. Behavior: Patient is calmly lying in bed without any agitated behavior. [place] ropriate Speech: Patient's speech is fluent and nonpressured. Mood/Affect: Patient reports their mood is "good", affect is congruent Suicidality/Homicidality: Patient denies having any suicidal or homicidal ideation intent or plan. Perceptions: Patient admits to visual and auditory hallucinations. Though content/process: More goal oriented. Not endorsing paranoia or delusions today. Memory and concentration: AOX3, grossly intact for the purposes of this session. Can spell "WORLD" backwards Judgment and insight: improving mildly IMPRESSIONS: Major depressive disorder Alcohol use disorder, severe Delirium Tremens cannabis used disorder nicotine dependence PLAN: -At this time patient DOES NOT meet criteria for inpatient psychiatric admission. -Would recommend the following medication changes/additions: campral tid 66 mg for etoh cravings, decreased valium 5 mg po tid for withdrawal, continue tapering down and wouldnt give more than 2-3 days of this medication for help with withdrawal then to be discontinued. zyprexa 5 mg qhs for psychosis/mood stabilization and insomnia. -thiamine, FA and multivitamin -craft worker to provide patient with outpatient mental health/psychiatry resources for appropriate follow up upon discharge -Curtain Cutter spoke with patient about substance abuse and the harmful effects on medical and mental health, patient verbally understood and agreed. -craft worker to provide patient substance use treatment resources including AA/NA meetings in the community. -Communicated plan to patient's nurse -At this time will sign off. Patient continues to decline rehab. -Please contact with any questions.
--- NOTE | 2021-03-04 15:27 | P.DS ---
Providers Date of admission: 02/26/21 05:36 Expected date of discharge: 03/04/21 Attending physician: Louie Lyle Consults: 02/26/21 06:11 Consult Physician Routine Consulting Provider: Jc Owen Consult Reason/Comments: blaze Do you want consulting provider notified?: Yes 02/27/21 00:13 Consult Physician Urgent Consulting Provider: Antwon Sutton Consult Reason/Comments: Increased agitation, Ativan drip, ICU, CIWA 41 Do you want consulting provider notified?: Yes 03/02/21 14:38 Consult Physician Routine Consulting Provider: Alok Silver Consult Reason/Comments: F/U eval. Do you want consulting provider notified?: Yes Primary care physician: [facility] Course: Final Diagnoses: Alcohol intoxication, DTs Alcohol encephalopathy, acute, possibly acute on chronic Acute hypoxic respiratory failure secondary to the above, status post ventilator-dependent. Reports seizure during the ER visit in a patient with History of Alcohol-induced seizures Alcohol dependence, with evidence of liver cirrhosis. Outpatient GI follow-up recommended Hepatomegaly, possibly hepatocellular disease, hepatic steatosis or hepatitis. Mood disorder, depression Cannabis use Nicotine dependence Hyponatremia, resolved Hypokalemia, resolved Hypomagnesemia, resolved Hospital course: This is a 25-year-old gentleman that presented to the ER with complaints of a ctive DTs, positive night sweats,. States he is on Klonopin which he states is not helping him.Reports he drinks approximately 2 pints to 1-1/2 fifths of alcohol per day. Vague historian. Denies any syncope. Denies any lightheadedness dizziness or focal deficits. Lipase 457. Denies any nausea vomiting or diarrhea. Denies any abdominal pain. Denies any chest pain, palpitations or shortness of breath. Sodium 133, potassium 3.4, renal function stable, glucose 123 magnesium 0.7, total bili 1.0, AST 117, ALT 67 .Toxicology screen detected marijuana, serum alcohol less than 10 .Reports he also had a seizure while in the ER, ER report currently unavailable in EHR.received IV fluid hydration with CIWA protocol. February 27 2021:25-year-old known alcoholic became more and more agitated floor yesterday afternoon and evening. He eventually needed to be in soft restraints. Haldol was ordered initially but inadvertently put in for a 1 time dose instead of hourly. The patient became more and more agitated and resisted resistant to oral Ativan hourly and Haldol given. Eventually required a consultation with critical care and transferred to intensive care unit for Ativan drip. The patie nt was intubated and still sedated at that point with propofol. He was found resting comfortably in the intensive care unit currently. He is mechanically ventilated with an FiO2 of 40% and PEEP of 5. Blood pressure heart rate rest her rate are stable. Labs this morning show a normal WBC count and hemoglobin. Blood gases showed a pH of 7.42 with PCO2 36 and a PO2 of 278. Chemistries show a hypokalemia with a potassium of 3.2. BUN 8 creatinine 0.93. Glucose was 120 this morning. AST and ALT are elevated at 172 and 91 respectively. Urinalysis is normal 2. Chest x-ray showed improved positioning the endotracheal tube. Lungs remain clear. The patient's mother was at bedside today. We discussed his care and current state. 02/28/2021: This patient remains intubated and sedated. Propofol and Ativan due to severe delirium tremens and alcohol withdrawal. Vital signs remained stable today. FiO2 is now 30% with a PEEP of 5. Her rate is now mechanically ventilated and 18. Heart rate and blood pressure remains stable. MAXIMUM TEMPERATURE is 102.5. He has an indwelling Stovall catheter. I's and O's currently showed a positive balance of 269, pulse width 544 in [address] ool is noted today. Laboratory studies show a normal CBC except for an MCV of 100.1. Platelets are slightly decreased at 140. There is a slight left shift with absolute neutrophil count of 8. PH is 7.46 with a PCO2 of 34 and PO2 136. Blood chemistries from early this morning showed a potassium of 3.6. Glucose is 101. Chest x-ray shows clear. Medical care progress note reviewed. 03/02/2021 Extubated yesterday, maintaining O2 sats in the high 90s to 100%.Transferred to telemetry unit during the night. CIWA score 0 . Last night nursing reported patient noticed some clothing in the corner of his room and reported he saw a cat in the corner. Patient is impulsive/forgetful; this morning staff reports patient unaware of his actions, as he held his phone under running water while telling his RN that he had an" A & B?", yet coherent discussion, alert and oriented 3. Prior to the ICU he was evaluated by psychiatry and placed on Campral, doxepin with Valium dose increased in addition to CIWA protocol. Denies any chest pain, palpitations or shortness of breath. Liver ultrasound reported hepatomegaly, possibly hepatocellular disease, hepatic steatosis or hepatitis. Trace amount of fluid surrounding the liver. Pro- calcitonin elevated, 1.41. Chest x-ray reportedly mild right infrahilar infiltrate slimmer/slightly improved from yesterday similar to slightly impression yesterday. Sputum culture pending, preliminary blood culture no growth at 24 hours. 03/03/2021 hallucinations improved,.chest x-ray reported slight improvement from yesterday. Reevaluated by psychiatry with recommendations noted and appreciated including no Naltrexone secondary to liver damage. Significant other and father in room, family discussion/updated by Dr. Lyle PCP regarding evidence of liver cirrhosis secondary to daily alcohol abuse. Ammonia level XII. Reports he slept well and is eating well. Denies further hallucinations. Denies any suicidal or homicidal ideations. Patient continues t o decline rehab. Significant clinical improvement. Reinforced substance abuse resources .Patient will be discharged home today in stable condition with guarded prognosis pending final DC recommendations and clearance per psychiatry. Denies chest pain, palpitations or shortness of breath. Denies lightheadedness, dizziness or focal deficits. The impression and plan of care has been dictated as directed. : I performed a history and examination of this patient, discussed the same with the dictator. I agree with the dictator's note ,documented as a scribe. Any additional findings or plans will be noted. Patient Condition at Discharge: Stable Plan - Discharge Summary Discharge Rx Participant: No New Discharge Prescriptions: New Acamprosate Calcium [Campral] 666 mg PO TID #60 tablet Folic Acid 1 mg PO DAILY tab Nicotine 21Mg/24Hr Patch [Habitrol] 1 patch TRANSDERM DAILY #30 patch Magnesium Oxide [Mag-Ox] 400 mg PO BID tab Multivitamins, Thera [Multivitamin (formulary)] 1 each PO DAILY tab Thiamine [Vitamin B-1] 100 mg PO DAILY #30 tab OLANZapine [ZyPREXA] 5 mg PO HS #30 tab Famotidine [Pepcid] 20 mg PO BID #60 tablet Discharge Medication List Acamprosate Calcium [Campral] 666 mg PO TID #60 tablet 03/04/21 [Rx] Famotidine [Pepcid] 20 mg PO BID #60 tablet 03/04/21 [Rx] Folic Acid 1 mg PO DAILY tab 03/04/21 [Rx] Magnesium Oxide [Mag-Ox] 400 mg PO BID tab 03/04/21 [Rx] Multivitamins, Thera [Multivitamin (formulary)] 1 each PO DAILY tab 03/04/21 [Rx] Nicotine 21Mg/24Hr Patch [Habitrol] 1 patch TRANSDERM DAILY #30 patch 03/04/21 [Rx] OLANZapine [ZyPREXA] 5 mg PO HS #30 tab 03/04/21 [Rx] Thiamine [Vitamin B-1] 100 mg PO DAILY #30 tab 03/04/21 [Rx] Follow up Appointment(s)/Referral(s): Dr. BRIGIDA Psychiatry [Other] - 1 Week Louie Lyle Jr, DO [Primary Care Provider] - 03/08/21 9:30 am Anali Lara MD [STAFF PHYSICIAN] - 05/03/21 3:15 pm (Elevated Liver enzymes. office will call if another opening opens up ) Patient Instructions/Handouts: Abuse of Alcohol (DC) Activity/Diet/Wound Care/Special Instructions: Alcohol abstinence, substance abuse treatment resources to be provided by social work Discharge Disposition: HOME SELF-CARE
[2021-03-04] MEDS ORDERED: diazePAM 5 MG TAB PO SCH (16:00)
== END 2021-03-04 14:45 | disposition home or self-care (01) | DRG 896 ==
LOC: EC 02:19 → 3SCARD 05:36 → 2SICU 02-27 01:38 → 4SSUR 03-02 04:41
PROVIDERS: ADMIT Family Medicine; ATTEND Family Medicine
PROC: 5A1945Z Respiratory Ventilation, 24-96 Consecutive Hours (ICD-10-PCS; principal; 2021-02-27)
PROC: 0BH17EZ Insertion of Endotracheal Airway into Trachea, Via Natural or Artificial Opening (ICD-10-PCS; 2021-02-27)
DX: F10.239 Alcohol dependence with withdrawal, unspecified (principal); J96.01 Acute respiratory failure with hypoxia; E87.1 Hypo-osmolality and hyponatremia; Z99.11 Dependence on respirator [ventilator] status; F10.231 Alcohol dependence with withdrawal delirium; F10.229 Alcohol dependence with intoxication, unspecified; E83.42 Hypomagnesemia; E86.0 Dehydration; E87.6 Hypokalemia; F17.210 Nicotine dependence, cigarettes, uncomplicated; F32.9 Major depressive disorder, single episode, unspecified; F41.9 Anxiety disorder, unspecified; G31.2 Degeneration of nervous system due to alcohol; Z20.822 Contact with and (suspected) exposure to COVID-19; K74.60 Unspecified cirrhosis of liver; Q65.89 Other specified congenital deformities of hip; R56.9 Unspecified convulsions; Z78.1 Physical restraint status; Z82.49 Family history of ischemic heart disease and other diseases of the circulatory system; Z96.642 Presence of left artificial hip joint; R16.0 Hepatomegaly, not elsewhere classified
CPT/HCPCS: 36415; 71045; 71046; 76705; 80048; 80053; 80074; 80306; 80320; 81003; 82140; 82805; 83605; 83690; 83735; 84145; 85025; 85610; 87040; 87070; 87077; 87186; 87205; 87635; 94002; 94003; 94640; 96361; 96374; 96375; 96376; 99291

== ENCOUNTER 2021-06-10 18:01 | Emergency (ER) | payer OTHER ==
[~2021-06-10 18:01] MED LIST: THIAMINE 100 MG TAB PO SCH
[2021-06-10 18:42] VITALS: RESP 18; TEMP 97.9
[2021-06-10] MEDS ORDERED: THIAMINE 100 MG/ML 2 ML VIAL IM STA (20:56)
[2021-06-10] MEDS ORDERED: LORazepam 2 MG/ML INJ IV PRN ×4 (20:56→21:59)
[2021-06-10 21:32] VITALS: BP 149/98; PULSE 90
[2021-06-10 21:41] LABS: Basophils # (A) 0.1 k/uL (0-0.2); Basophils % (A) 1 %; Eosinophils # (A) 0.1 k/uL (0-0.7); Eosinophils % (A) 1 %; HCT 44.8 % (39.0-53.0); HGB 15.6 gm/dL (13.0-17.5); Lymphocytes # (A) 3.5 k/uL (1.0-4.8); Lymphocytes % (A) 38 %; MCH 31.9 pg (25.0-35.0); MCHC 34.8 g/dL (31.0-37.0); MCV 91.7 fL (80.0-100.0); Mean Platelet Volume 7.2; Monocytes # (A) 0.5 k/uL (0-1.0); Monocytes % (A) 5 %; Neutrophils # (A) 4.9 k/uL (1.3-7.7); Neutrophils % (A) 53 %; Platelet Count 365 k/uL (150-450); RBC 4.88 m/uL (4.30-5.90); WBC 9.2 k/uL (3.8-10.6)
[2021-06-10 21:55] LABS: ALT 15 U/L (4-49); AST 33 U/L (17-59); African American GFR (CKD) >90 (>60 ml/min/1.73 sqM); Albumin 4.9 g/dL (3.5-5.0); Alkaline Phosphatase 73 U/L (38-126); Anion Gap 12 mmol/L; Blood Urea Nitrogen 14 mg/dL (9-20); Calcium 9.8 mg/dL (8.4-10.2); Carbon Dioxide 26 mmol/L (22-30); Chloride 103 mmol/L (98-107); Glucose 87 mg/dL (74-99); Non-African American GFR(CKD) >90 (>60 ml/min/1.73 sqM); Sodium 141 mmol/L (137-145); Total Bilirubin 0.4 mg/dL (0.2-1.3); Total Protein 8.2 g/dL (6.3-8.2)
[2021-06-10 21:58] LABS: Alcohol 81 mg/dL
[2021-06-10] MEDS ORDERED: THIAMINE 100 MG/ML 2 ML VIAL IM ONE (22:00)
[2021-06-10 22:19] LABS: Appearance,Urine Clear (Clear); Bilirubin,Urine Negative (Negative); Blood,Urine Negative (Negative); Color,Urine Light Yellow; Glucose,Urine (UA) Negative (Negative); Ketones,Urine Negative (Negative); Leukocyte Esterase,Urine Negative (Negative); Nitrite,Urine Negative (Negative); Protein,Urine Negative (Negative); Specific Gravity,Urine 1.009 (1.001-1.035); Urobilinogen,Urine <2.0 mg/dL (<2.0)
[2021-06-10 22:24] LABS: Amphetamine Screen,Urine Not Detected (NotDetected); Barbiturate Screen,Urine Not Detected (NotDetected); Benzodiazepines Screen,Urine Not Detected (NotDetected); Cocaine Screen,Urine Not Detected (NotDetected); Methadone Screen, Urine Not Detected (NotDetected); Opiate Screen,Urine Not Detected (NotDetected); Oxycodone Screen, Urine Not Detected (NotDetected); Phencyclidine Screen,Urine Not Detected (NotDetected); Tricyclic Antidepressant,Urine Not Detected (NotDetected); Urn Cannabinoid Scrn Detected (NotDetected)
--- NOTE | 2021-06-10 22:26 | ED ---
Alcohol HPI - General Chief Complaint: Alcohol Stated Complaint: Alcohol Withdrawal Time Seen by Provider: 06/10/21 20:34 Source: patient Mode of arrival: ambulatory Limitations: no limitations - History of Present Illness Initial Comments: Patient is a 26-year-old male who presents to the emergency department with concern for alcohol withdrawal. Patient's father is at bedside helps provide history. Patient states he has drank a fifth of liquor a day for 3 days with last drink this morning. Patient's father state that patient's has endorsed intermittent hand tremors since this afternoon. His father expresses concern as he states last time patient withdrew in February of 2021 patient experienced severe delirium tremens. Patient denies abdominal pain, nausea, vomiting, and seizure-like activity. He denies visual or auditory hallucinations. He denies suicidal or homicidal ideation. Patient states he has been to [facility] before and does not like it. He states that prior to the past 3 days patient has not drank since his last withdrawal incident in February. He states that he is able to quit on his own. Patient denies tobacco or other illicit drug use. - Related Data Previous Rx's Medication Instructions Recorded Acamprosate Calcium [Campral] 666 mg PO TID #60 tablet 03/04/21 Famotidine [Pepcid] 20 mg PO BID #60 tablet 03/04/21 Folic Acid 1 mg PO DAILY tab 03/04/21 Magnesium Oxide [Mag-Ox] 400 mg PO BID tab 03/04/21 Multivitamins, Thera [Multivitamin 1 each PO DAILY tab 03/04/21 (formulary)] Nicotine 21Mg/24Hr Patch [Habitrol] 1 patch TRANSDERM DAILY #30 patch 03/04/21 OLANZapine [ZyPREXA] 5 mg PO HS #30 tab 03/04/21 Thiamine [Vitamin B-1] 100 mg PO DAILY #30 tab 03/04/21 Allergies Allergy/AdvReac Type Severity Reaction Status Date / Time adhesive tape Allergy Rash/Hives Verified 06/10/21 18:42 Review of Systems ROS Statement: Those systems with pertinent positive or pertinent negative responses have been documented in the HPI. ROS Other: All systems not noted in ROS Statement are negative. Past Medical History Additional Past Medical History / Comment(s): Pirthise disease Left hip History of Any Multi-Drug Resistant Organisms: None Reported Past Surgical History: Hernia Repair Additional Past Surgical History / Comment(s): left hip TOTAL REPLACEMENT Past Anesthesia/Blood Transfusion Reactions: No Reported Reaction Past Psychological History: Depression Smoking Status: Current every day smoker Past Alcohol Use History: Abuse, Daily, Heavy Past Drug Use History: Marijuana - Past Family History Father Family Medical History: Coronary Artery Disease (CAD) Mother Family Medical History: Cancer General Exam Limitations: no limitations General appearance: alert, in no apparent distress Head exam: Present: atraumatic, normocephalic, normal inspection Eye exam: Present: normal appearance, PERRL, EOMI. Absent: scleral icterus, conjunctival injection, periorbital swelling ENT exam: Present: normal oropharynx, other (No deviation or fasciculations of the tongue) Neck exam: Present: normal inspection, full ROM Respiratory exam: Present: normal lung sounds bilaterally. Absent: respiratory distress, wheezes, rales, rhonchi, stridor Cardiovascular Exam: Present: regular rate, normal rhythm, normal heart sounds. Absent: systolic murmur, diastolic murmur, rubs, gallop, clicks GI/Abdominal exam: Present: soft, normal bowel sounds. Absent: distended, tenderness, guarding, rebound, rigid Extremities exam: Present: normal inspection, other (No resting tremors of the bilateral hands) Neurological exam: Present: alert, oriented X3, CN II-XII intact Psychiatric exam: Present: normal affect, normal mood Skin exam: Present: warm, dry, intact, normal color. Absent: rash Course Vital Signs 06/10/21 06/10/21 18:39 21:31 Temperature 97.9 F Pulse Rate 126 H 90 Respiratory 18 18 Rate Blood Pressure 157/89 149/98 O2 Sat by Pulse 98 97 Oximetry Medical Decision Making - Medical Decision Making This is a 26-year-old who presents with concern for alcohol withdrawal. Thorough history and examination were performed. Patient does not appear to have have resting hand tremors or tongue fasciculation. CIWA protocol was initiated. Serum alcohol is 81. While pending admission for observation, patient tells nurse that he would like to go home. I talked to the patient and his father personally. Patient is alert and oriented 4. He is of sound mind and able to make medical decisions. Patient states he would like to sober up at home. His father reassures me that he will watch the patient closely overnight and return if patient has any c oncerning symptoms including but not limited to nausea, vomiting, hallucinations, tremors, and seizure-like activity.. Patient has been drinking for 3 days so I will discharge him with strict return parameters. Patient and his father verbalized understanding and agreeable with this plan. Patient d eclines psychiatric referral at this time. He was given thiamine and discharged in stable condition. Dr. Greene is my attending. - Lab Data Result diagrams: 06/10/21 21:25 06/10/21 21:25 Lab Results 06/10/21 06/10/21 06/10/21 Range/Units 21:25 21:25 21:25 WBC 9.2 (3.8-10.6) k/uL RBC 4.88 (4.30-5.90) m/uL Hgb 15.6 (13.0-17.5) gm/dL Hct 44.8 (39.0-53.0) % MCV 91.7 (80.0-100.0) fL MCH 31.9 (25.0-35.0) pg MCHC 34.8 (31.0-37.0) g/dL RDW 13.0 (11.5-15.5) % Plt Count 365 (150-450) k/uL MPV 7.2 Neutrophils % 53 % Lymphocytes % 38 % Monocytes % 5 % Eosinophils % 1 % Basophils % 1 % Neutrophils # 4.9 (1.3-7.7) k/uL Lymphocytes # 3.5 (1.0-4.8) k/uL Monocytes # 0.5 (0-1.0) k/uL Eosinophils # 0.1 (0-0.7) k/uL Basophils # 0.1 (0-0.2) k/uL Sodium 141 (137-145) mmol/L Potassium 4.0 (3.5-5.1) mmol/L Chloride 103 (98-107) mmol/L Carbon Dioxide 26 (22-30) mmol/L Anion Gap 12 mmol/L BUN 14 (9-20) mg/dL Creatinine 0.77 (0.66-1.25) mg/dL Est GFR (CKD-EPI)AfAm >90 (>60 ml/min/1.73 sqM) Est GFR (CKD-EPI)NonAf >90 (>60 ml/min/1.73 sqM) Glucose 87 (74-99) mg/dL Calcium 9.8 (8.4-10.2) mg/dL Total Bilirubin 0.4 (0.2-1.3) mg/dL AST 33 (17-59) U/L ALT 15 (4-49) U/L Alkaline Phosphatase 73 (38-126) U/L Total Protein 8.2 (6.3-8.2) g/dL Albumin 4.9 (3.5-5.0) g/dL Urine Color Light Yellow Urine Appearance Clear (Clear) Urine pH 6.0 (5.0-8.0) Ur Specific [place] 1.009 (1.001-1.035) Urine Protein Negative (Negative) Urine Glucose (UA) Negative (Negative) Urine Ketones Negative (Negative) Urine Blood Negative (Negative) Urine Nitrite Negative (Negative) Urine Bilirubin Negative (Negative) Urine Urobilinogen <2.0 (<2.0) mg/dL Ur Leukocyte Esterase Negative (Negative) Urine Opiates Screen Not Detected (NotDetected) Ur Oxycodone Screen Not Detected (NotDetected) Urine Methadone Screen Not Detected (NotDetected) Ur Propoxyphene Screen Not Detected (NotDetected) Ur Barbiturates Screen Not Detected (NotDetected) U Tricyclic Antidepress Not Detected (NotDetected) Ur Phencyclidine Scrn Not Detected (NotDetected) Ur Amphetamines Screen Not Detected (NotDetected) U Methamphetamines Scrn Not Detected (NotDetected) U Benzodiazepines Scrn Not Detected (NotDetected) Urine Cocaine Screen Not Detected (NotDetected) U Marijuana (THC) Screen Detected H (NotDetected) Serum Alcohol 81 mg/dL Disposition Clinical Impression: Alcohol intoxication Disposition: HOME SELF-CARE Condition: Good Instructions (If sedation given, give patient instructions): Alcohol I ntoxication (ED), Alcohol Withdrawal (ED) Additional Instructions: Please hydrate yourself with water home. Continue to monitor for alcohol withdrawal symptoms including but not limiting to nausea, vomiting, hallucinations, tremors, and seizure-like activity. Follow-up with primary care provider in one to 2 days. Return to the emergency department if you experience new, concerning, or worsening symptoms. Is patient prescribed a controlled substance at d/c from ED?: No Referrals: Louie Lyle Jr, [Primary Care Provider] - 1-2 days Time of Disposition: 22:26
== END 2021-06-10 22:36 | disposition home or self-care (01) ==
LOC: EC 18:01
DX: F10.129 Alcohol abuse with intoxication, unspecified (principal); F32.A Depression, unspecified; F17.200 Nicotine dependence, unspecified, uncomplicated; F12.90 Cannabis use, unspecified, uncomplicated; Z96.642 Presence of left artificial hip joint; Y90.4 Blood alcohol level of 80-99 mg/100 ml
CPT/HCPCS: 99284; 36415; 80053; 85025; 81003; 80306; G0480; 80320

== ENCOUNTER 2022-09-23 18:24 | Inpatient (IN) | payer OTHER ==
[2022-09-23] MEDS ORDERED: SODIUM CHLORIDE 0.9% 1,000 ML IV STA (19:06)
[2022-09-23] MEDS ORDERED: THIAMINE 100 MG/ML 2 ML VIAL IM STA (19:07)
[2022-09-23] MEDS ORDERED: levETIRAcetam IV 500 MG/5 ML VIAL IVP STA (19:07)
[2022-09-23] MEDS ORDERED: LORazepam 2 MG/ML INJ IV PRN (19:07)
[2022-09-23] MEDS: LORazepam 2 MG/ML INJ IV PRN ×2 (19:21→23:09)
[2022-09-23 19:54] LABS: Basophils % (A) 1 %; Eosinophils % (A) 1 %; HCT 45.4 % (39.0-53.0); HGB 15.5 gm/dL (13.0-17.5); Lymphocytes # (A) 0.7 k/uL (1.0-4.8); Lymphocytes % (A) 15 %; MCH 32.3 pg (25.0-35.0); MCHC 34.1 g/dL (31.0-37.0); MCV 94.9 fL (80.0-100.0); Mean Platelet Volume 8.7; Monocytes # (A) 0.4 k/uL (0-1.0); Monocytes % (A) 9 %; Neutrophils # (A) 3.6 k/uL (1.3-7.7); Neutrophils % (A) 73 %; Platelet Count 121 k/uL (150-450); RBC 4.79 m/uL (4.30-5.90); RDW 14.4 % (11.5-15.5); WBC 4.9 k/uL (3.8-10.6)
[2022-09-23 20:08] LABS: ALT 219 U/L (4-49); AST 420 U/L (17-59); African American GFR (CKD) >90 (>60 ml/min/1.73 sqM); Albumin 4.8 g/dL (3.5-5.0); Alcohol <10 mg/dL; Alkaline Phosphatase 81 U/L (38-126); Anion Gap 16 mmol/L; Blood Urea Nitrogen 5 mg/dL (9-20); Calcium 9.5 mg/dL (8.4-10.2); Carbon Dioxide 20 mmol/L (22-30); Chloride 97 mmol/L (98-107); Glucose 96 mg/dL (74-99); Non-African American GFR(CKD) >90 (>60 ml/min/1.73 sqM); Potassium 4.6 mmol/L (3.5-5.1); Sodium 133 mmol/L (137-145); Total Bilirubin 0.9 mg/dL (0.2-1.3); Total Protein 7.9 g/dL (6.3-8.2)
--- NOTE | 2022-09-23 20:35 | CT ---
EXAMINATION TYPE: CT brain wo con DATE OF EXAM: 09/23/2022 COMPARISON: 09/13/2020 INDICATION: seizure DLP: 1177.4 mGycm, Automated exposure control for dose reduction was used. CONTRAST: None CT of the brain is performed utilizing 3 mm thick sections through the posterior fossa and 3 mm thick sections through the remaining calvarium. Study is performed within 24 hours of arrival to the hosp ital. No abnormal hyperdensity is present to suggest an acute intracranial hemorrhage. No mass lesion is evident. No acute infarcts are evident. Ventricles and sulci are appropriate for the patient age. Paranasal sinuses and mastoid air cells within the [id number] are clear. IMPRESSIONS: 1. No acute intracranial process. Follow-up MRI can be performed as clinically indicated.
--- NOTE | 2022-09-23 20:41 | XR ---
EXAMINATION TYPE: XR chest 2V DATE OF EXAM: 09/23/2022 COMPARISON: 03/02/2021 INDICATION: Cough TECHNIQUE: Frontal and lateral views of the chest are obtained. FINDINGS: The heart size is normal. The pulmonary vasculature is normal. The lungs are clear. IMPRESSION: 1. No acute pulmonary process.
[2022-09-23 20:43] LABS: Appearance,Urine Clear (Clear); Bilirubin,Urine Negative (Negative); Blood,Urine Small (Negative); Color,Urine Yellow; Glucose,Urine (UA) Negative (Negative); Hyaline Casts,Urine 7 /lpf (0-2); Ketones,Urine 2+ (Negative); Leukocyte Esterase,Urine Negative (Negative); Mucus,Urine Occasional /hpf; Nitrite,Urine Negative (Negative); PH, Urine 6.5 (5.0-8.0); Protein,Urine 2+ (Negative); RBC,Urine 1 /hpf (0-5); Specific Gravity,Urine 1.019 (1.001-1.035); Urobilinogen,Urine <2.0 mg/dL (<2.0); WBC,Urine 1 /hpf (0-5)
[2022-09-23 20:49] LABS: Amphetamine Screen,Urine Not Detected (NotDetected); Barbiturate Screen,Urine Not Detected (NotDetected); Benzodiazepines Screen,Urine Not Detected (NotDetected); Cocaine Screen,Urine Not Detected (NotDetected); Methadone Screen, Urine Not Detected (NotDetected); Opiate Screen,Urine Not Detected (NotDetected); Oxycodone Screen, Urine Not Detected (NotDetected); Phencyclidine Screen,Urine Not Detected (NotDetected); Tricyclic Antidepressant,Urine Not Detected (NotDetected); Urn Cannabinoid Scrn Not Detected (NotDetected)
[2022-09-23] MEDS ORDERED: NALOXONE 0.4 MG/ML 1 ML VIAL IV PRN (20:58)
--- NOTE | 2022-09-23 22:46 | ED ---
General Adult HPI - General Chief complaint: Seizure Stated complaint: Seizure Time Seen by Provider: 09/23/22 19:06 Source: patient, RN notes reviewed, old records reviewed Mode of arrival: EMS Limitations: no limitations - History of Present Illness Initial comments: Patient is a 27-year-old male with past history remarkable for alcohol abuse, alcohol withdrawals, delirium tremens who presents emergency Department following a seizure at home secondary likely to alcohol withdrawals. Has been having nausea, vomiting. Last strength was yesterday. Has been shaking. He had a tonic-clonic seizure that was witnessed by his father at home. Currently patient is back to his baseline but he did fall to ground secondary to seizure. States he feels like he is in alcohol withdrawals. Has required intubation for previous alcohol withdrawals due to delirium. Patient denies any chest pain, shortness of breath. Denies any abdominal pain, nausea, vomiting. Denies any other drug use. Presents for further evaluation at this time. - Related Data Home Medications Medication Instructions Recorded Confirmed No Known Home Medications 09/23/22 09/23/22 Allergies Allergy/AdvReac Type Severity Reaction Status Date / Time adhesive tape Allergy Rash/Hives Verified 09/23/22 20:17 Review of Systems ROS Statement: Those systems with pertinent positive or pertinent negative responses have been documented in the HPI. Review of Systems: CONST: Denies fever EYES: Denies blurry vision ENT: Denies nasal congestion C/V: Denies Chest pain RESP: Denies shortness of breath GI: Denies abdominal pain : Denies dysuria SKIN: Denies rash. MSK: Denies joint pain. NEURO: Denies headache ROS Other: All systems not noted in ROS Statement are negative. Past Medical History Additional Past Medical History / Comment(s): Pirthise disease Left hip History of Any Multi-Drug Resistant Organisms: None Reported Past Surgical History: Hernia Repair Additional Past Surgical History / Comment(s): left hip TOTAL REPLACEMENT Past Anesthesia/Blood Transfusion Reactions: No Reported Reaction Past Psychological History: Depression Smoking Status: Current every day smoker Past Alcohol Use History: Abuse, Daily, Heavy Past Drug Use History: Marijuana - Past Family History Father Family Medical History: Coronary Artery Disease (CAD) Mother Family Medical History: Cancer General Exam - General Exam Comments Initial Comments: General: Patient has tremors, attempted situations. Appears to be in alcohol withdrawals. HEAD: Normal with no signs of head trauma. EYES: PERRLA, EOMI, conjunctiva normal, no discharge. ENT: Hearing grossly intact, normal oropharynx. Patient has a tongue abrasion. RESPIRATORY: Clear breath sounds bilaterally. No wheezes, rales, or rhonchi. C/V: Tachycardic with a regular rhythm. S1 and S2 auscultated, no edema, peripheral pulses 2+ and intact throughout ABD: Abd is soft, nontender, nondistended EXT: Normal range of motion, no obvious deformity SKIN: No rashes or lesions observed on exposed skin. NEURO: Alert and oriented 4. Limitations: no limitations Course Vital Signs 09/23/22 09/23/22 09/23/22 18:30 18:36 18:40 Temperature 98.5 F Pulse Rate 106 H 94 Respiratory 16 16 Rate Blood Pressure 155/102 155/102 O2 Sat by Pulse 98 98 99 Oximetry 09/23/22 09/23/22 09/23/22 18:50 19:00 19:10 Temperature Pulse Rate 96 98 93 Respiratory 11 L 19 23 Rate Blood Pressure 155/102 155/102 157/107 O2 Sat by Pulse 98 96 97 Oximetry 09/23/22 09/23/22 09/23/22 19:20 19:30 19:36 Temperature Pulse Rate 96 98 Respiratory 13 16 Rate Blood Pressure 157/107 157/107 130/80 O2 Sat by Pulse 97 98 Oximetry 09/23/22 09/23/22 09/23/22 19:40 19:50 20:00 Temperature Pulse Rate 95 84 95 Respiratory 13 14 13 Rate Blood Pressure 144/102 O2 Sat by Pulse 98 99 98 Oximetry 09/23/22 09/23/22 09/23/22 20:10 20:20 20:30 Temperature Pulse Rate 93 82 Respiratory 12 12 18 Rate Blood Pressure 144/102 144/102 144/102 O2 Sat by Pulse 99 96 98 Oximetry 09/23/22 09/23/22 09/23/22 20:40 20:50 21:00 Temperature Pulse Rate 84 74 79 Respiratory 18 11 L 11 L Rate Blood Pressure 146/99 146/99 146/99 O2 Sat by Pulse 97 98 97 Oximetry 09/23/22 09/23/22 09/23/22 21:10 21:20 21:30 Temperature Pulse Rate 68 74 82 Respiratory 15 12 13 Rate Blood Pressure 112/89 112/89 112/89 O2 Sat by Pulse 98 97 98 Oximetry Medical Decision Making - Medical Decision Making Was pt. sent in by a medical professional or institution ([facility], [employer], urgent care, hospital, or skilled nursing...) When possible be specific @ -No Did you speak to anyone other than the patient for history (EMS, parent, family, police, friend...)? What history was obtained from this source @ -Spoke with patient's father who presents at bedside and was witnessed the seizure at home. Did you review nursing and triage notes (agree or disagree)? Why? @ -I reviewed and agree with nursing and triage notes Were old charts reviewed (outside hosp., previous admission, EMS record, old EKG, old radiological studies, urgent care reports/EKG's, skilled nursing records)? Report findings @ -No old charts were reviewed Differential Diagnosis (chest pain, altered mental status, abdominal pain women, abdominal pain men, vaginal bleeding, weakness, fever, dyspnea, syncope, headache, dizziness, GI bleed, back pain, seizure, CVA, palpatations, mental health, musculoskeletal)? @ -Differential Seizure: Recurrent seizure disorder, febrile seizure, alcohol withdrawal, stimulants, meningitis, encephalitis, intercranial hemorrhage, intracranial tumor, stroke, eclampsia, thyrotoxicosis, hypocalcemia, hyponatremia, hypernatremia, hypomagnesemia, psychogenic, this is not meant to be an all-inclusive list. EKG interpreted by me (3pts min.). @ -As above X-rays interpreted by me (1pt min.). @ -Chest x-ray shows no obvious acute cardio primary process. CT interpreted by me (1pt min.). @ -CT brain shows no obvious acute intracranial injury or process. U/S interpreted by me (1pt. min.). @ -None done What testing was considered but not performed or refused? (CT, X-rays, U/S, labs)? Why? @ -None What meds were considered but not given or refused? Why? @ -I offered tetanus booster for his tongue abrasion but he declined. Did you discuss the management of the patient with other professionals (professionals i.e. [facility], [employer], lab, RT, psych nurse, social work therapist, supervisory cbp officer, teacher, corporate development officer, health sciences manager)? Give summary @ -Discussed with the admitting team, ROLAND Hsieh [facility] accepted the patient. Was smoking cessation discussed for >3mins.? @ -No Was critical care preformed (if so, how long)? @ -No Were there social determinants of health that impacted care today? How? (Homelessness, low income, unemployed, alcoholism, drug addiction, transportation, low edu. Level, literacy, decrease access to med. care, fpc, rehab)? @ -No Was there de-escalation of care discussed even if they declined (Discuss DNR or withdrawal of care, Hospice)? DNR status @ -No What co-morbidities impacted this encounter? (DM, HTN, Smoking, COPD, CAD, Cancer, CVA, ARF, Chemo, Hep., AIDS, mental health diagnosis, sleep apnea, morbid obesity)? @ -Alcohol abuse, alcohol withdrawals Was patient admitted / discharged? Hospital course, mention meds given and route, prescriptions, significant lab abnormalities, going to OR and other pert inent info. @ -Based on the patient's presentation and physical exam, presents with alcohol withdrawal seizures and alcohol withdrawals. Patient will be given IV fluids, IV Keppra, as well as IV Ativan. Initial CIWA is 12. Seizure precautions ordered. We will continue to monitor. He was in agreement this plan. Vital signs within acceptable limits. Labs are remarkable for mildly elevated LFTs. Urine is unremarkable. CT brain and chest x-ray unremarkable. EKG unremark able. On reevaluation, following Ativan patient's alcohol withdrawals are improved. Due to his significant alcohol withdrawals history we will admit for monitoring and treatment. He was in agreement this plan. I spoke with the admitting team, Маиря of [facility] accepted the patient. Undiagnosed new problem with uncertain prognosis? @ -No Drug Therapy requiring intensive monitoring for toxicity (Heparin, Nitro, Insulin, Cardizem)? @ -No Were any procedures done? @ -No Diagnosis/symptom? @ -Alcohol withdrawals, alcohol withdrawal seizure Acute, or Chronic, or Acute on Chronic? @ -Acute Uncomplicated (without systemic symptoms) or Complicated (systemic symptoms)? @ -Complicated Side effects of treatment? @ -No Exacerbation, Progression, or Severe Exacerbation? @ -No Poses a threat to life or bodily function? How? (Chest pain, [place], PR, pneumonia, PE, COPD, DKA, ARF, appy, cholecystitis, CVA, Diverticulitis, Homicidal, Suicidal, threat to staff... and all critical care pts) @ -Yes - Lab Data Result diagrams: 09/23/22 19:06 09/23/22 19:06 Lab Results 09/23/22 09/23/22 09/23/22 Range/Units 19:06 19:06 19:06 WBC 4.9 (3.8-10.6) k/uL RBC 4.79 (4.30-5.90) m/uL Hgb 15.5 (13.0-17.5) gm/dL Hct 45.4 (39.0-53.0) % MCV 94.9 (80.0-100.0) fL MCH 32.3 (25.0-35.0) pg MCHC 34.1 (31.0-37.0) g/dL RDW 14.4 (11.5-15.5) % Plt Count 121 L (150-450) k/uL MPV 8.7 Neutrophils % 73 % Lymphocytes % 15 % Monocytes % 9 % Eosinophils % 1 % Basophils % 1 % Neutrophils # 3.6 (1.3-7.7) k/uL Lymphocytes # 0.7 L (1.0-4.8) k/uL Monocytes # 0.4 (0-1.0) k/uL Eosinophils # 0.0 (0-0.7) k/uL Basophils # 0.0 (0-0.2) k/uL Sodium 133 L (137-145) mmol/L Potassium 4.6 (3.5-5.1) mmol/L Chloride 97 L (98-107) mmol/L Carbon Dioxide 20 L (22-30) mmol/L Anion Gap 16 mmol/L BUN 5 L (9-20) mg/dL Creatinine 0.63 L (0.66-1.25) mg/dL Est GFR (CKD-EPI)AfAm >90 (>60 ml/min/1.73 sqM) Est GFR (CKD-EPI)NonAf >90 (>60 ml/min/1.73 sqM) Glucose 96 (74-99) mg/dL Calcium 9.5 (8.4-10.2) mg/dL Magnesium 2.0 (1.6-2.3) mg/dL Total Bilirubin 0.9 (0.2-1.3) mg/dL AST 420 H (17-59) U/L ALT 219 H (4-49) U/L Alkaline Phosphatase 81 (38-126) U/L Total Protein 7.9 (6.3-8.2) g/dL Albumin 4.8 (3.5-5.0) g/dL Urine Color Yellow Urine Appearance Clear (Clear) Urine pH 6.5 (5.0-8.0) Ur Specific [place] 1.019 (1.001-1.035) Urine Protein 2+ H (Negative) Urine Glucose (UA) Negative (Negative) Urine Ketones 2+ H (Negative) Urine Blood Small H (Negative) Urine Nitrite Negative (Negative) Urine Bilirubin Negative (Negative) Urine Urobilinogen <2.0 (<2.0) mg/dL Ur Leukocyte Esterase Negative (Negative) Urine RBC 1 (0-5) /hpf Urine WBC 1 (0-5) /hpf Hyaline Casts 7 H (0-2) /lpf Urine Mucus Occasional H (None) /hpf Urine Opiates Screen Not Detected (NotDetected) Ur Oxycodone Screen Not Detected (NotDetected) Urine Methadone Screen Not Detected (NotDetected) Ur Propoxyphene Screen Not Detected (NotDetected) Ur Barbiturates Screen Not Detected (NotDetected) U Tricyclic Antidepress Not Detected (NotDetected) Ur Phencyclidine Scrn Not Detected (NotDetected) Ur Amphetamines Screen Not Detected (NotDetected) U Methamphetamines Scrn Not Detected (NotDetected) U Benzodiazepines Scrn Not Detected (NotDetected) Urine Cocaine Screen Not Detected (NotDetected) U Marijuana (THC) Screen Not Detected (NotDetected) Serum Alcohol <10 mg/dL - EKG Data -: EKG Interpreted by Me EKG Comments: 12-lead Electrocardiogram Interpretation Note EKG was reviewed and interpreted by myself. 12-lead ECG performed at 1909 is interpreted by me as revealing normal sinus rhythm at a rate of 95 beats per minute. [place] is normal. LA interval is 160 ms, QRS duration is 99 ms, QTc is 405 ms.. There were no ST or T wave abnormalities to suggest myocardial ischemia or injury. R wave progression across the precordium was satisfactory. By my interpretation this EKG is non-diagnostic for acute ischemia. Disposition Clinical Impression: Alcohol withdrawal, Alcohol withdrawal seizure, Abrasion of tongue Disposition: ADMITTED IP TO THIS HOSP Condition: Serious Time of Disposition: 20:45
[2022-09-23] MEDS: NICOTINE 21MG/24HR PATCH TRANSDERM SCH (23:12)
[2022-09-24] MEDS: LORazepam 2 MG/ML INJ IV PRN ×16 (00:26→23:57)
[2022-09-24] MEDS ORDERED: ACETAMINOPHEN TAB 325 MG TAB PO PRN (07:05)
[2022-09-24] MEDS ORDERED: ONDANSETRON 4 MG/2 ML VIAL IVP PRN (07:05)
[2022-09-24] MEDS: THIAMINE 100 MG TAB PO SCH (08:00)
[2022-09-24] MEDS: PANTOPRAZOLE 40 MG/10 ML VIAL IVP SCH ×2 (08:00→19:44)
[2022-09-24] MEDS: NICOTINE 21MG/24HR PATCH TRANSDERM SCH (08:00)
[2022-09-24] MEDS: SODIUM CHLORIDE 0.9% 1,000 ML IV SCH ×2 (08:03→19:43)
[2022-09-24 08:49] LABS: Basophils % (A) 1 %; Eosinophils # (A) 0.1 k/uL (0-0.7); Eosinophils % (A) 2 %; HCT 45.3 % (39.0-53.0); Lymphocytes # (A) 1.5 k/uL (1.0-4.8); Lymphocytes % (A) 28 %; MCV 96.9 fL (80.0-100.0); Mean Platelet Volume 9.1; Monocytes # (A) 0.4 k/uL (0-1.0); Monocytes % (A) 8 %; Neutrophils # (A) 3.2 k/uL (1.3-7.7); Neutrophils % (A) 60 %; Platelet Count 110 k/uL (150-450); RBC 4.68 m/uL (4.30-5.90); RDW 14.6 % (11.5-15.5); WBC 5.3 k/uL (3.8-10.6)
[2022-09-24 09:13] LABS: African American GFR (CKD) >90 (>60 ml/min/1.73 sqM); Anion Gap 14 mmol/L; Blood Urea Nitrogen 7 mg/dL (9-20); Calcium 9.2 mg/dL (8.4-10.2); Carbon Dioxide 22 mmol/L (22-30); Chloride 99 mmol/L (98-107); Glucose 70 mg/dL (74-99); Non-African American GFR(CKD) >90 (>60 ml/min/1.73 sqM); Sodium 135 mmol/L (137-145)
--- NOTE | 2022-09-24 09:44 | P.HPIM ---
History of Present Illness H&P Date: 09/24/22 Chief Complaint: seizure 27-year-old male with past history remarkable for alcohol abuse, alcohol withdrawals, delirium tremens who presents emergency Department following a s eizure at home secondary likely to alcohol withdrawals. Has been having nausea, vomiting. Last strength was yesterday. Has been shaking. He had a tonic- clonic seizure that was witnessed by his father at home. Currently patient is back to his baseline but he did fall to ground secondary to seizure. States he feels like he is in alcohol withdrawals. Has required intubation for previous alcohol withdrawals due to delirium. Patient denies any chest pain, shortness of breath. Denies any abdominal pain, nausea, vomiting. Denies any other drug use. Presents for further evaluation at this time. In the ED patient was given IV fluids along with IV Keppra and per [facility] protocol CT of the brain was completed which was unremarkable Chest x-ray is negative for any acute process EKG doesn't reveal any acute ST-T wave Blood work reveals WBC of 4.9, hemoglobin of 15.5 and platelet count of 454, sodium 133, potassium 0.6, BUN/creatinine of 5/0.63 and blood glucose of 96 UA is unremarkable; urine drug screen is negative Review of Systems REVIEW OF SYSTEMS: CONSTITUTIONAL: No fever, no malaise, no fatigue. HEENT: No recent visual problems or hearing problems. Denied any sore throat. CARDIOVASCULAR: No chest pain, orthopnea, PND, no palpitations, no syncope. PULMONARY: No shortness of breath, no cough, no hemoptysis. GASTROINTESTINAL: No diarrhea, no nausea, no vomiting, no abdominal pain. NEUROLOGICAL: No headaches, no weakness, no numbness. HEMATOLOGICAL: Denies any bleeding or petechiae. GENITOURINARY: Denies any burning micturition, frequency, or urgency. MUSCULOSKELETAL/RHEUMATOLOGICAL: Denies any joint pain, swelling, or any muscle pain. ENDOCRINE: Denies any polyuria or polydipsia. The rest of the 14-point review of systems is negative. Past Medical History Additional Past Medical History / Comment(s): Pirthise disease Left hip History of Any Multi-Drug Resistant Organisms: None Reported Past Surgical History: Hernia Repair Additional Past Surgical History / Comment(s): left hip TOTAL REPLACEMENT Past Anesthesia/Blood Transfusion Reactions: No Reported Reaction Past Psychological History: Depression Smoking Status: Current every day smoker Past Alcohol Use History: Abuse, Daily, Heavy Past Drug Use History: Marijuana - Past Family History Father Family Medical History: Coronary Artery Disease (CAD) Mother Family Medical History: Cancer Medications and Allergies Home Medications Medication Instructions Recorded Confirmed Type No Known Home Medications 09/23/22 09/23/22 History Allergies Allergy/AdvReac Type Severity Reaction Status Date / Time adhesive tape Allergy Rash/Hives Verified 09/23/22 20:17 Physical Exam Vitals: Vital Signs Temp Pulse Resp BP Pulse Ox 09/23/22 20:00 75 20 144/102 98 09/23/22 19:36 98 16 130/80 98 09/23/22 18:30 98.5 F 106 H 16 155/102 98 Intake and Output 09/23/22 09/23/22 09/23/22 06:59 14:59 22:59 Other: Weight 72.575 kg General: Patient has tremors, attempted situations. Appears to be in alcohol withdrawals. HEAD: Normal with no signs of head trauma. EYES: PERRLA, EOMI, conjunctiva normal, no discharge. ENT: Hearing grossly intact, normal oropharynx. Patient has a tongue abrasion. RESPIRATORY: Clear breath sounds bilaterally. No wheezes, rales, or rhonchi. C/V: Tachycardic with a regular rhythm. S1 and S2 auscultated, no edema, peripheral pulses 2+ and intact throughout ABD: Abd is soft, nontender, nondistended EXT: Normal range of motion, no obvious deformity SKIN: No rashes or lesions observed on exposed skin. NEURO: Alert and oriented 4. Results CBC & Chem 7: 09/24/22 08:16 09/24/22 08:16 Labs: Abnormal Lab Results - Last 24 Hours (Table) 09/23/22 09/23/22 09/23/22 Range/Units 19:06 19:06 19:06 Plt Count 121 L (150-450) k/uL Lymphocytes # 0.7 L (1.0-4.8) k/uL Sodium 133 L (137-145) mmol/L Chloride 97 L (98-107) mmol/L Carbon Dioxide 20 L (22-30) mmol/L BUN 5 L (9-20) mg/dL Creatinine 0.63 L (0.66-1.25) mg/dL AST 420 H (17-59) U/L ALT 219 H (4-49) U/L Urine Protein 2+ H (Negative) Urine Ketones 2+ H (Negative) Urine Blood Small H (Negative) Hyaline Casts 7 H (0-2) /lpf Urine Mucus Occasional H (None) /hpf Assessment and Plan Assessment: 1. Acute alcohol withdrawal with withdrawal seizures -- Patient received IV Keppra and IV Ativan in the ED; thiamine 100 mg daily - Has been placed on CIWA protocol with Ativan; seizure precautions - Patient remains on IV fluids in form of normal saline at rate of 75 mL - We will hold off on neurology consult since seizures are related to alcohol withdrawal 2. Chronic alcohol use; counseling done on abuse and need for quitting 3. Mild hyponatremia; currently on IV normal saline 75 mL an hour; we will monitor strict MANINDER's and monitor I's closely 4. Significant transaminitis; likely related to alcohol abuse; counseling done; we will plan to monitor liver enzymes periodically 5. Depression; patient is currently not on antidepressants 6. Gastroesophageal reflux disease/gastritis; currently on Protonix 40 mg IV twice a day DVT prophylaxis; SCDs CODE STATUS; full code
[2022-09-24] MEDS ORDERED: MELATONIN 3 MG TABLET PO PRN (15:56)
[2022-09-24] MEDS: chlordiazePOXIDE 25 MG CAP PO SCH (20:49)
[2022-09-25] MEDS: LORazepam 2 MG/ML INJ IV PRN ×10 (03:19→22:43)
[2022-09-25 07:30] LABS: Basophils # (A) 0.1 k/uL (0-0.2); Basophils % (A) 1 %; Eosinophils # (A) 0.1 k/uL (0-0.7); Eosinophils % (A) 2 %; HCT 46.1 % (39.0-53.0); HGB 15.5 gm/dL (13.0-17.5); Lymphocytes # (A) 2.2 k/uL (1.0-4.8); Lymphocytes % (A) 40 %; MCH 32.4 pg (25.0-35.0); MCHC 33.6 g/dL (31.0-37.0); MCV 96.6 fL (80.0-100.0); Mean Platelet Volume 9.5; Monocytes # (A) 0.5 k/uL (0-1.0); Monocytes % (A) 8 %; Neutrophils # (A) 2.6 k/uL (1.3-7.7); Neutrophils % (A) 48 %; Platelet Count 113 k/uL (150-450); RBC 4.77 m/uL (4.30-5.90); RDW 14.2 % (11.5-15.5); WBC 5.5 k/uL (3.8-10.6)
[2022-09-25 07:45] LABS: African American GFR (CKD) >90 (>60 ml/min/1.73 sqM); Anion Gap 16 mmol/L; Blood Urea Nitrogen 7 mg/dL (9-20); Calcium 9.6 mg/dL (8.4-10.2); Carbon Dioxide 23 mmol/L (22-30); Chloride 98 mmol/L (98-107); Glucose 88 mg/dL (74-99); Non-African American GFR(CKD) >90 (>60 ml/min/1.73 sqM); Potassium 3.9 mmol/L (3.5-5.1); Sodium 137 mmol/L (137-145)
[2022-09-25] MEDS: chlordiazePOXIDE 25 MG CAP PO SCH ×3 (08:13→20:30)
[2022-09-25] MEDS: PANTOPRAZOLE 40 MG/10 ML VIAL IVP SCH ×2 (08:13→20:30)
[2022-09-25] MEDS: THIAMINE 100 MG TAB PO SCH (08:13)
[2022-09-25] MEDS: NICOTINE 21MG/24HR PATCH TRANSDERM SCH (08:14)
[2022-09-25] MEDS ORDERED: MORPHINE SULFATE 4 MG/ML SYRINGE IVP PRN (09:33)
[2022-09-25] MEDS: SODIUM CHLORIDE 0.9% 1,000 ML IV SCH (09:40)
--- NOTE | 2022-09-25 10:25 | CT ---
EXAMINATION TYPE: CT abdomen wo/w con DATE OF EXAM: 09/25/2022 COMPARISON: None INDICATION: upper abdominal pain, alcohol withdrawal DLP: 931.6 mGycm, Automated exposure control for dose reduction was used. CONTRAST: 100 mL of Isovue 300. Study performed without Oral Contrast TECHNIQUE: Axial images were obtained from above the diaphragm to the pubic rami in the axial plane a t 5 mm thick sections. Reconstructed images are reviewed on the computer in the coronal plane. FINDINGS: Limited CT sections are obtained the lung bases. The lung bases are clear. CT ABDOMEN: Liver: There is moderate diffuse fatty infiltration of the liver. No underlying mass is evident. No c ysts are evident. Spleen: Normal Pancreas: May be some mild inflammatory changes adjacent to the head of the pancreas. Correlate for a cute pancreatitis. Body and tail of pancreas appear normal. Adrenal glands: The adrenal glands are normal. Gallbladder: Normal Kidneys: No masses are evident. No hydronephrosis is present. No cysts are present. No renal stone s are evident. Aorta: Normal Inferior vena cava: Normal. Loops of bowel within the abdomen and upper pelvis appear unremarkable. IMPRESSIONS: 1. Suggestion of some mild fluid adjacent to the head of the pancreas. Correlate for acute pancreati tis. 2. Moderate fatty infiltration the liver.
[2022-09-25] MEDS: DEXTROSE 5%-0.45% NACL 1,000 ML IV SCH ×2 (11:14→17:40)
[2022-09-25 11:38] LABS: Albumin 4.6 g/dL (3.5-5.0); Bilirubin, Delta 0.3 mg/dL (0.0-0.2); Bilirubin,Unconjugated 0.6 mg/dL (0.0-1.1); Total Bilirubin 0.9 mg/dL (0.2-1.3); Total Protein 7.7 g/dL (6.3-8.2)
--- NOTE | 2022-09-25 14:06 | P.GSCN ---
History of Present Illness Consult date: 09/25/22 History of present illness: Parents at beside gives additional history including father's dad had gallbladder removed. Patient's mother just diagnosed with gallstones Patient confirms drinking alcohol and first episode of pancreatitis. Recommend US of gallbladder with family history of gallstones and risk of gallstone pancreatitis. LFTs elevated Alcohol cessation advised to prevent recurrence Strict NPO, diet discontinued Pain management and CIWA protocol per admitting team All questions addressed. Past Medical History Additional Past Medical History / Comment(s): Pirthise disease Left hip History of Any Multi-Drug Resistant Organisms: None Reported Past Surgical History: Hernia Repair Additional Past Surgical History / Comment(s): left hip TOTAL REPLACEMENT Past Anesthesia/Blood Transfusion Reactions: No Reported Reaction Past Psychological History: Depression Smoking Status: Current every day smoker Past Alcohol Use History: Abuse, Daily, Heavy Past Drug Use History: Marijuana - Past Family History Father Family Medical History: Coronary Artery Disease (CAD) Mother Family Medical History: Cancer Medications and Allergies Home Medications Medication Instructions Recorded Confirmed Type No Known Home Medications 09/23/22 09/23/22 History Allergies Allergy/AdvReac Type Severity Reaction Status Date / Time adhesive tape Allergy Rash/Hives Verified 09/23/22 20:17 Surgical - Exam Vital Signs Temp Pulse Resp BP Pulse Ox 98.5 F 106 H 16 155/102 98 09/23/22 18:30 09/23/22 18:30 09/23/22 18:30 09/23/22 18:30 09/23/22 18:30 Results - Labs 09/25/22 06:44 09/25/22 06:44 Abnormal Lab Results - Last 24 Hours (Table) 09/25/22 09/25/22 09/25/22 Range/Units 06:44 06:44 06:44 Plt Count 113 L (150-450) k/uL BUN 7 L (9-20) mg/dL Delta Bilirubin 0.3 H (0.0-0.2) mg/dL AST 142 H (17-59) U/L ALT 161 H (4-49) U/L Amylase 326 H* (30-110) U/L Lipase 5146 H (23-300) U/L Diabetes panel 09/25/22 09/25/22 Range/Units 06:44 06:44 Sodium 137 (137-145) mmol/L Potassium 3.9 (3.5-5.1) mmol/L Chloride 98 (98-107) mmol/L Carbon Dioxide 23 (22-30) mmol/L BUN 7 L (9-20) mg/dL Creatinine 0.72 (0.66-1.25) mg/dL Glucose 88 (74-99) mg/dL Calcium 9.6 (8.4-10.2) mg/dL AST 142 H (17-59) U/L ALT 161 H (4-49) U/L Alkaline Phosphatase 63 (38-126) U/L Total Protein 7.7 (6.3-8.2) g/dL Albumin 4.6 (3.5-5.0) g/dL Calcium panel 09/25/22 09/25/22 Range/Units 06:44 06:44 Calcium 9.6 (8.4-10.2) mg/dL Albumin 4.6 (3.5-5.0) g/dL Pituitary panel 09/25/22 Range/Units 06:44 Sodium 137 (137-145) mmol/L Potassium 3.9 (3.5-5.1) mmol/L Chloride 98 (98-107) mmol/L Carbon Dioxide 23 (22-30) mmol/L BUN 7 L (9-20) mg/dL Creatinine 0.72 (0.66-1.25) mg/dL Glucose 88 (74-99) mg/dL Calcium 9.6 (8.4-10.2) mg/dL Adrenal panel 09/25/22 09/25/22 Range/Units 06:44 06:44 Sodium 137 (137-145) mmol/L Potassium 3.9 (3.5-5.1) mmol/L Chloride 98 (98-107) mmol/L Carbon Dioxide 23 (22-30) mmol/L BUN 7 L (9-20) mg/dL Creatinine 0.72 (0.66-1.25) mg/dL Glucose 88 (74-99) mg/dL Calcium 9.6 (8.4-10.2) mg/dL Total Bilirubin 0.9 (0.2-1.3) mg/dL AST 142 H (17-59) U/L ALT 161 H (4-49) U/L Alkaline Phosphatase 63 (38-126) U/L Total Protein 7.7 (6.3-8.2) g/dL Albumin 4.6 (3.5-5.0) g/dL
[2022-09-25] MEDS: MORPHINE SULFATE 4 MG/ML SYRINGE IVP PRN ×3 (14:24→22:32)
--- NOTE | 2022-09-25 17:19 | P.PN ---
Subjective Progress Note Date: 09/24/22 27-year-old male with past history remarkable for alcohol abuse, alcohol withdrawals, delirium tremens who presents emergency Department following a seizure at home secondary likely to alcohol withdrawals. Has been having nausea, vomiting. Last strength was yesterday. Has been shaking. He had a tonic-clonic seizure that was witnessed by his father at home. Currently patient is back to his baseline but he did fall to ground secondary to seizure. States he feels like he is in alcohol withdrawals. Has required intubation for previous alcohol withdrawals due to delirium. Patient denies any chest pain, shortness of breath. Denies any abdominal pain, nausea, vomiting. Denies any other drug use. Presents for further evaluation at this time. In the ED patient was given IV fluids along with IV Keppra and per [facility] protocol CT of the brain was completed which was unremarkable Chest x-ray is negative for any acute process EKG doesn't reveal any acute ST-T wave Blood work reveals WBC of 4.9, hemoglobin of 15.5 and platelet count of 454, sodium 133, potassium 0.6, BUN/creatinine of 5/0.63 and blood glucose of 96 UA is unremarkable; urine drug screen is negative Objective - Vital Signs Vital signs: Vital Signs Temp 98 F 09/24/22 11:04 Pulse 98 09/24/22 11:04 Resp 18 09/24/22 11:04 BP 139/88 09/24/22 11:04 Pulse Ox 99 09/24/22 11:04 FiO2 Intake & Output 09/23/22 09/24/22 09/24/22 18:59 06:59 18:59 Intake Total 840 Balance 840 Weight 72.575 kg 72.575 kg Intake: Oral 840 Other: # Voids 1 1 - Exam General: Patient has tremors, attempted situations. Appears to be in alcohol withdrawals. HEAD: Normal with no signs of head trauma. EYES: PERRLA, EOMI, conjunctiva normal, no discharge. ENT: Hearing grossly intact, normal oropharynx. Patient has a tongue abrasion. RESPIRATORY: Clear breath sounds bilaterally. No wheezes, rales, or rhonchi. C/V: Tachycardic with a regular rhythm. S1 and S2 auscultated, no edema, peripheral pulses 2+ and intact throughout ABD: Abd is soft, nontender, nondistended EXT: Normal range of motion, no obvious deformity SKIN: No rashes or lesions observed on exposed skin. NEURO: Alert and oriented 4. - Labs CBC & Chem 7: 09/25/22 06:44 09/25/22 06:44 Labs: Abnormal Lab Results - Last 24 Hours (Table) 09/23/22 09/23/22 09/23/22 Range/Units 19:06 19:06 19:06 Plt Count 121 L (150-450) k/uL Lymphocytes # 0.7 L (1.0-4.8) k/uL Sodium 133 L (137-145) mmol/L Chloride 97 L (98-107) mmol/L Carbon Dioxide 20 L (22-30) mmol/L BUN 5 L (9-20) mg/dL Creatinine 0.63 L (0.66-1.25) mg/dL Glucose (74-99) mg/dL AST 420 H (17-59) U/L ALT 219 H (4-49) U/L Urine Protein 2+ H (Negative) Urine Ketones 2+ H (Negative) Urine Blood Small H (Negative) Hyaline Casts 7 H (0-2) /lpf Urine Mucus Occasional H (None) /hpf 09/24/22 09/24/22 Range/Units 08:16 08:16 Plt Count 110 L (150-450) k/uL Lymphocytes # (1.0-4.8) k/uL Sodium 135 L (137-145) mmol/L Chloride (98-107) mmol/L Carbon Dioxide (22-30) mmol/L BUN 7 L (9-20) mg/dL Creatinine 0.65 L (0.66-1.25) mg/dL Glucose 70 L (74-99) mg/dL AST (17-59) U/L ALT (4-49) U/L Urine Protein (Negative) Urine Ketones (Negative) Urine Blood (Negative) Hyaline Casts (0-2) /lpf Urine Mucus (None) /hpf Assessment and Plan Assessment: 1. Acute alcohol withdrawal with withdrawal seizures -- Patient received IV Keppra and IV Ativan in the ED; thiamine 100 mg daily - Has been placed on CIWA protocol with Ativan; seizure precautions - Patient remains on IV fluids in form of normal saline at rate of 75 mL - We will hold off on neurology consult since seizures are related to alcohol withdrawal 2. Chronic alcohol use; counseling done on abuse and need for quitting 3. Mild hyponatremia; currently on IV normal saline 75 mL an hour; we will monitor strict MANINDER's and monitor I's closely 4. Significant transaminitis; likely related to alcohol abuse; counseling done; we will plan to monitor liver enzymes periodically 5. Depression; patient is currently not on antidepressants 6. Gastroesophageal reflux disease/gastritis; currently on Protonix 40 mg IV twice a day DVT prophylaxis; SCDs CODE STATUS; full code
--- NOTE | 2022-09-25 17:21 | P.PN ---
Subjective Progress Note Date: 09/25/22 27-year-old male with past history remarkable for alcohol abuse, alcohol withdrawals, delirium tremens who presents emergency Department following a seizure at home secondary likely to alcohol withdrawals. Has been having nausea, vomiting. Last strength was yesterday. Has been shaking. He had a tonic-clonic seizure that was witnessed by his father at home. Currently patient is back to his baseline but he did fall to ground secondary to seizure. States he feels like he is in alcohol withdrawals. Has required intubation for previous alcohol withdrawals due to delirium. Patient denies any chest pain, shortness of breath. Denies any abdominal pain, nausea, vomiting. Denies any other drug use. Presents for further evaluation at this time. In the ED patient was given IV fluids along with IV Keppra and per [facility] protocol CT of the brain was completed which was unremarkable Chest x-ray is negative for any acute process EKG doesn't reveal any acute ST-T wave Blood work reveals WBC of 4.9, hemoglobin of 15.5 and platelet count of 454, sodium 133, potassium 0.6, BUN/creatinine of 5/0.63 and blood glucose of 96 UA is unremarkable; urine drug screen is negative 09/25/2022 Patient is seen and evaluated in room at bedside; started complaining of severe abdominal pain this morning; CT of the abdomen was done which reveals pancreatitis; lipase is at elevated at 5146 - Patient has been made nothing by mouth; has been placed on IV fluids in form of D5 half-normal saline at a rate of 1 30 mL an hour; we will monitor strict MANINDER; Protonix 40 mg IV every 12 hours -- Gen. surgery is consulted and that agreeable with the above Objective - Vital Signs Vital signs: Vital Signs Temp 98.1 F 09/24/22 20:00 Pulse 101 H 09/25/22 04:00 Resp 16 09/25/22 04:00 BP 136/94 09/25/22 04:00 Pulse Ox 98 09/25/22 04:00 FiO2 Intake & Output 09/24/22 09/25/22 09/25/22 18:59 06:59 18:59 Intake Total 1860 1620 Balance 1860 1620 Intake: Oral 1860 1620 Other: # Voids 2 1 # Bowel Movements 2 - Exam General: Patient has tremors, attempted situations. Appears to be in alcohol withdrawals. HEAD: Normal with no signs of head trauma. EYES: PERRLA, EOMI, conjunctiva normal, no discharge. ENT: Hearing grossly intact, normal oropharynx. Patient has a tongue abrasion. RESPIRATORY: Clear breath sounds bilaterally. No wheezes, rales, or rhonchi. C/V: Tachycardic with a regular rhythm. S1 and S2 auscultated, no edema, peripheral pulses 2+ and intact throughout ABD: Abd is soft, nontender, nondistended EXT: Normal range of motion, no obvious deformity SKIN: No rashes or lesions observed on exposed skin. NEURO: Alert and oriented 4. - Labs CBC & Chem 7: 09/25/22 06:44 09/25/22 06:44 Labs: Abnormal Lab Results - Last 24 Hours (Table) 09/25/22 09/25/22 Range/Units 06:44 06:44 Plt Count 113 L (150-450) k/uL BUN 7 L (9-20) mg/dL Assessment and Plan Assessment: 1. Acute alcohol withdrawal with withdrawal seizures -- Patient received IV Keppra and IV Ativan in the ED; thiamine 100 mg daily - Has been placed on CIWA protocol with Ativan; seizure precautions - Patient remains on IV fluids in form of normal saline at rate of 75 mL - We will hold off on neurology consult since seizures are related to alcohol withdrawal 2. Chronic alcohol use; counseling done on abuse and need for quitting 3. Mild hyponatremia; currently on IV normal saline 75 mL an hour; we will monitor strict MANINDER's and monitor I's closely 4. Significant transaminitis; likely related to alcohol abuse; counseling done; we will plan to monitor liver enzymes periodically 5. Depression; patient is currently not on antidepressants 6. Gastroesophageal reflux disease/gastritis; currently on Protonix 40 mg IV twice a day DVT prophylaxis; SCDs CODE STATUS; full code
[2022-09-26] MEDS: LORazepam 2 MG/ML INJ IV PRN ×9 (00:31→20:14)
[2022-09-26] MEDS: DEXTROSE 5%-0.45% NACL 1,000 ML IV SCH ×2 (00:32→13:19)
[2022-09-26] MEDS: MORPHINE SULFATE 4 MG/ML SYRINGE IVP PRN ×5 (02:54→21:00)
--- NOTE | 2022-09-26 07:46 | US ---
EXAMINATION TYPE: US gallbladder DATE OF EXAM: 09/26/2022 COMPARISON: 09/25/2022 CT CLINICAL INDICATION: Male, 27 years old with history of Gallstone pancreatitis; abd pain, pancreatiti s, alcoholic TECHNIQUE: Multiple sonographic images of the right upper quadrant are obtained. FINDINGS: EXAM MEASUREMENTS: Liver Length: 20.1 cm Gallbladder Wall: 0.2 cm CBD: 0.6 cm Right Kidney: 11.0 x 5.2 x 4.3 cm Pancreas: Minimally heterogenous sonographic appearance. Liver: enlarged and difficult to penetrate Gallbladder: wnl Evidence for sonographic Adams's sign: no CBD: wnl Right Kidney: wnl IMPRESSION: 1. Gallbladder is relatively within normal limits. 2. Hepatic steatosis. 3. Trace free fluid in the upper abdomen likely secondary to pancreatitis findings on CT.
[2022-09-26] MEDS: chlordiazePOXIDE 25 MG CAP PO SCH ×3 (08:47→20:13)
[2022-09-26] MEDS: THIAMINE 100 MG TAB PO SCH (08:47)
[2022-09-26] MEDS: PANTOPRAZOLE 40 MG/10 ML VIAL IVP SCH ×2 (08:47→20:14)
[2022-09-26] MEDS: NICOTINE 21MG/24HR PATCH TRANSDERM SCH (08:47)
[2022-09-26 09:47] LABS: Basophils % (A) 1 %; Eosinophils # (A) 0.1 k/uL (0-0.7); Eosinophils % (A) 2 %; HCT 43.8 % (39.0-53.0); HGB 14.9 gm/dL (13.0-17.5); Lymphocytes # (A) 1.5 k/uL (1.0-4.8); Lymphocytes % (A) 21 %; MCH 32.4 pg (25.0-35.0); MCV 95.1 fL (80.0-100.0); Mean Platelet Volume 9.5; Monocytes # (A) 0.4 k/uL (0-1.0); Monocytes % (A) 6 %; Neutrophils # (A) 4.9 k/uL (1.3-7.7); Neutrophils % (A) 69 %; Platelet Count 111 k/uL (150-450); RDW 14.1 % (11.5-15.5)
[2022-09-26 10:07] LABS: African American GFR (CKD) >90 (>60 ml/min/1.73 sqM); Anion Gap 11 mmol/L; Blood Urea Nitrogen 3 mg/dL (9-20); Calcium 8.7 mg/dL (8.4-10.2); Carbon Dioxide 24 mmol/L (22-30); Chloride 98 mmol/L (98-107); Glucose 98 mg/dL (74-99); Non-African American GFR(CKD) >90 (>60 ml/min/1.73 sqM); Potassium 3.4 mmol/L (3.5-5.1); Sodium 133 mmol/L (137-145)
[2022-09-26 10:17] LABS: Lipase 2338 U/L (23-300)
[2022-09-26] MEDS: SODIUM CHLORIDE 0.9% 1,000 ML IV SCH (14:21)
--- NOTE | 2022-09-26 14:51 | P.PN ---
Subjective Progress Note Date: 09/26/22 CHIEF COMPLAINT: Pancreatitis HISTORY OF PRESENT ILLNESS: Patient continues to complain of epigastric abd ominal pain. Does report it slightly improved since admission. Denies any nausea or vomiting. Gallbladder within normal limits. No evidence of gallstones. Hepatic steatosis. Trace free fluid in the upper abdomen likely secondary to pancreatitis. Afebrile. LFTs trending downwards. Lipase trending downwards PHYSICAL EXAM: VITAL SIGNS: Reviewed GENERAL: Well-developed in no acute distress. HEENT: No sclera icterus. Extraocular movements grossly intact. Moist buccal mucosa. Head is atraumatic, normocephalic. Hears conversational speech. No nasal drainage. NECK: Supple without lymphadenopathy. CHEST: Non-labored respirations and equal bilateral excursions. CARDIOVASCULAR: Palpable 2+ radial pulses. ABDOMEN: Soft. Nondistended. Epigastric pain MUSCULOSKELETAL: No clubbing or cyanosis. NEUROLOGIC: No focal or lateralizing signs. Cranial nerves II through XII grossly intact. PSYCH: Appropriate affect. Alert and oriented to person, place and time. SKIN: Well perfused. Good skin turgor. ASSESSMENT: 1. Acute pancreatitis likely alcohol induced. No evidence of gallstones on ultrasound PLAN: -Keep patient nothing by mouth -Continue IV fluids -Continue pain management -Educated patient on alcohol cessation Physician Clay Pigeon Loader note has been reviewed by physician. Signing provider agrees with the documented findings, assessment, and plan of care. Objective - Vital Signs Vital signs: Vital Signs Temp 99.1 F 09/26/22 11:40 Pulse 102 H 09/26/22 11:40 Resp 14 09/26/22 11:40 BP 119/81 09/26/22 11:40 Pulse Ox 97 09/26/22 11:40 FiO2 Intake & Output 09/25/22 09/26/22 09/26/22 18:59 06:59 18:59 Intake Total 540 Output Total 800 Balance 540 -800 Intake: Oral 540 Output: Urine 800 Other: # Voids 2 1 - Labs CBC & Chem 7: 09/26/22 09:02 09/26/22 09:02 Labs: Abnormal Lab Results - Last 24 Hours (Table) 09/26/22 09/26/22 Range/Units 09:02 09:02 Plt Count 111 L (150-450) k/uL Sodium 133 L (137-145) mmol/L Potassium 3.4 L (3.5-5.1) mmol/L BUN 3 L (9-20) mg/dL Creatinine 0.65 L (0.66-1.25) mg/dL Lipase 2338 H (23-300) U/L
[2022-09-27] MEDS: SODIUM CHLORIDE 0.9% 1,000 ML IV SCH ×2 (00:18→09:51)
[2022-09-27] MEDS: LORazepam 2 MG/ML INJ IV PRN ×2 (00:20→04:51)
[2022-09-27] MEDS: MORPHINE SULFATE 4 MG/ML SYRINGE IVP PRN ×2 (01:26→06:32)
[2022-09-27 04:30] VITALS: RESP 14
--- NOTE | 2022-09-27 07:05 | PN ---
PROGRESS NOTE DATE OF SERVICE: 09/26/2022 SUBJECTIVE: This is a 27-year-old gentleman admitted with alcohol withdrawal, also had features of acute pancreatitis. Multiple consultants are following the patient closely. No chest pain or palpitation. EXAM: VITAL SIGNS: Pulse is 102, blood pressure 119/80, respirations 14. CHEST: Clear to auscultation. ABDOMEN: Soft, mild diffuse tenderness in the upper abdomen. LABORATORY DATA: Reviewed. ASSESSMENT: 1. Acute alcohol withdrawal and delirium tremens. 2. Acute pancreatitis secondary to EtOH. 3. Mild hyponatremia. 4. Multiple medical issues. RECOMMENDATIONS: Recommended to continue current management and treatment, CIWA protocol, repeat labs in the morning. Otherwise closely follow with surgery. Guarded prognosis. Further recommendations to follow. MMODL / IJN: [id number] /
[2022-09-27 07:22] LABS: Basophils % (A) 1 %; Eosinophils # (A) 0.2 k/uL (0-0.7); Eosinophils % (A) 2 %; HGB 16.3 gm/dL (13.0-17.5); Lymphocytes # (A) 2.8 k/uL (1.0-4.8); Lymphocytes % (A) 34 %; MCH 32.2 pg (25.0-35.0); MCHC 32.6 g/dL (31.0-37.0); MCV 98.5 fL (80.0-100.0); Mean Platelet Volume 9.2; Monocytes # (A) 0.7 k/uL (0-1.0); Monocytes % (A) 8 %; Neutrophils # (A) 4.5 k/uL (1.3-7.7); Neutrophils % (A) 54 %; Platelet Count 136 k/uL (150-450); RBC 5.08 m/uL (4.30-5.90); RDW 14.3 % (11.5-15.5); WBC 8.4 k/uL (3.8-10.6)
[2022-09-27 08:00] LABS: ALT 95 U/L (4-49); AST 77 U/L (17-59); African American GFR (CKD) >90 (>60 ml/min/1.73 sqM); Albumin 4.4 g/dL (3.5-5.0); Alkaline Phosphatase 59 U/L (38-126); Amylase 224 U/L (30-110); Anion Gap 16 mmol/L; Blood Urea Nitrogen 5 mg/dL (9-20); Calcium 9.4 mg/dL (8.4-10.2); Carbon Dioxide 21 mmol/L (22-30); Chloride 100 mmol/L (98-107); Glucose 79 mg/dL (74-99); Lipase 994 U/L (23-300); Non-African American GFR(CKD) >90 (>60 ml/min/1.73 sqM); Potassium 3.9 mmol/L (3.5-5.1); Sodium 137 mmol/L (137-145); Total Bilirubin 1.1 mg/dL (0.2-1.3); Total Protein 7.5 g/dL (6.3-8.2)
[2022-09-27 08:40] VITALS: BP 121/74; PULSE 76; TEMP 98.2
[2022-09-27] MEDS: PANTOPRAZOLE 40 MG/10 ML VIAL IVP SCH (09:26)
[2022-09-27] MEDS: chlordiazePOXIDE 25 MG CAP PO SCH (09:27)
[2022-09-27] MEDS: THIAMINE 100 MG TAB PO SCH (09:27)
[2022-09-27] MEDS ORDERED: HYDROcodone/APAP 5-325MG 1 EACH TAB PO PRN (09:46)
[2022-09-27] MEDS ORDERED: LORazepam 1 MG TAB PO PRN (09:46)
[2022-09-27] MEDS: NICOTINE 21MG/24HR PATCH TRANSDERM SCH (09:47)
--- NOTE | 2022-09-28 14:56 | P.DS ---
Providers Date of admission: 09/23/22 20:58 Expected date of discharge: 09/27/22 Attending physician: Rosa Bradshaw Consults: 09/25/22 10:29 Consult Physician Stat Consulting Provider: Katia George Consult Reason/Comments: acute pancreatitis Do you want consulting provider notified?: Yes Primary care physician: Physician Nonstaff Hospital Course: Final diagnosis Acute alcohol withdrawal and delirium tremens Acute pancreatitis secondary to EtOH Mild hyponatremia, improved GI prophylaxis DVT Proflex Full code Discharge disposition Patient is being discharged in a stable condition with guarded prognosis to home. Patient will follow-up with primary care provider in the outpatient setting upon discharge. Patient reports he has seen Dr. Snyder in the past although has not followed up. Patient is to continue with Librium taper and outpatient follow-up with [facility] as scheduled. It was also strongly suggested patient goes to alcohol rehab and patient refusing at this time. Parents at the bedside. Total time taken is greater than 35 minutes. Hospital course This is a 27-year-old male who was recently admitted with acute alcohol withdrawal with features of acute pancreatitis. Liver functions and amylase/lipase elevated and patient was continued on clear liquids and gentle IV hydration showing some improvements and labs. Patient also maintained on CIWA protocol and also started on Librium taper. Patient continued to request IV Ativan per nursing staff and patient has been instructed that he should go to alcohol rehab. Family at the bedside asking how to prevent this and again suggestion alcohol rehab and complete alcohol cessation. Patient is noncompliant with medications and follow-up and does not appear to want to quit drinking at this time. Patient also instructed to follow-up with [facility] outpatient this week. Patient is tolerating diet and will be discharged today. Currently no reports of chest pain, shortness of breath, or palpitations. Patient is afebrile. No reports of nausea or vomiting and patient is tolerating diet. Patient will be discharged home today. Guarded prognosis. Physical exam: Gen: This is a 27-year-old male who is awake, alert and oriented 3, thin built, well-developed HEENT: Head is atraumatic, normocephalic. Pupils equal, round. Sclerae is anicteric. NECK: Supple. No JVD. No lymphadenopathy. No thyromegaly. LUNGS: Clear to auscultation. No wheezes or rhonchi. No intercostal retractions. HEART: Regular rate and rhythm. No murmur. ABDOMEN: Soft. Bowel sounds are present. No masses. No tenderness. EXTREMITIES: No pedal edema. No calf tenderness. NEUROLOGICAL: Patient is awake, alert and oriented x3. Cranial nerves 2 through 12 are grossly intact. Please refer to medication reconciliation sheet for a list of medications. The impression and plan of care has been dictated by Мария Dias, Nurse Practitioner as directed. Dr. Augustine MD I have performed a history and examination and MDM of this patient, discussed the same with the dictator, and agree with the dictator's assessment and plan as written ,documented as a scribe. Based on total visit time, I have performed more than 50% of the visit. Patient Condition at Discharge: Stable Plan - Discharge Summary Discharge Rx Participant: No New Discharge Prescriptions: New chlordiazePOXIDE HCl [Librium] 25 mg PO TID 3 Days #6 capsule Acetaminophen Tab [Tylenol] 650 mg PO Q6HR PRN tab PRN Reason: Fever And/ Or Pain Thiamine [Vitamin B-1] 100 mg PO DAILY #30 tab Discharge Medication List Acetaminophen Tab [Tylenol] 650 mg PO Q6HR PRN tab 09/27/22 [Rx] Thiamine [Vitamin B-1] 100 mg PO DAILY #30 tab 09/27/22 [Rx] chlordiazePOXIDE HCl [Librium] 25 mg PO TID 3 Days #6 capsule 09/27/22 [Rx] Follow up Appointment(s)/Referral(s): Nonstaff,Physician [Primary Care Provider] - 1-2 Days [facility] [NON-STAFF] - 1 Week Ambulatory/Diagnostic Orders: Comprehensive Metabolic Panel [LAB.AMB] Time Frame: 1 Week, Location: None Selected Activity/Diet/Wound Care/Special Instructions: Activity Limited until follow-up Follow-up with primary care provider on discharge Follow-up with community health mental health Strongly consider alcohol rehab Continue taking medications as prescribed Avoid all alcohol use and exposure Follow-up labs in one week Discharge/Stand Alone Forms: AA Meetings [facility], Outpatient Counseling, Inp Substance Abuse Facilities Discharge Disposition: HOME SELF-CARE
== END 2022-09-27 11:50 | disposition home or self-care (01) | DRG 775 ==
LOC: EC 18:24 → 3SCARD 20:58
PROVIDERS: ADMIT Hospitalist; ATTEND Hospitalist
PROC: HZ2ZZZZ Detoxification Services for Substance Abuse Treatment (ICD-10-PCS; principal; 2022-09-23)
DX: F10.231 Alcohol dependence with withdrawal delirium (principal); G40.509 Epileptic seizures related to external causes, not intractable, without status epilepticus; E87.1 Hypo-osmolality and hyponatremia; R74.01 Elevation of levels of liver transaminase levels; F32.A Depression, unspecified; K21.9 Gastro-esophageal reflux disease without esophagitis; K29.70 Gastritis, unspecified, without bleeding; R00.0 Tachycardia, unspecified; F17.210 Nicotine dependence, cigarettes, uncomplicated; K76.0 Fatty (change of) liver, not elsewhere classified; K85.20 Alcohol induced acute pancreatitis without necrosis or infection; Z91.148 Patient's other noncompliance with medication regimen for other reason; Z82.49 Family history of ischemic heart disease and other diseases of the circulatory system; Z87.19 Personal history of other diseases of the digestive system; Z96.642 Presence of left artificial hip joint; Z71.41 Alcohol abuse counseling and surveillance of alcoholic
CPT/HCPCS: 36415; 70450; 71046; 74170; 76705; 80048; 80053; 80076; 80306; 80320; 81001; 82150; 83690; 83735; 85025; 93005; 94760; 96361; 96372; 96374; 99285

== ENCOUNTER 2023-11-07 18:24 | Emergency (ER) | payer OTHER ==
--- NOTE | 2023-11-07 19:03 | ED ---
General Adult HPI - General Chief complaint: Seizure Stated complaint: Seizure Time Seen by Provider: 11/07/23 18:32 Source: patient, family, RN notes reviewed Mode of arrival: EMS Limitations: altered mental status - History of Present Illness Initial comments: Patient is a 28-year-old male presenting to the emergency department with reported seizure. Patient became unresponsive and then had generalized tonic- clonic activity lasting around 5 minutes. Patient was confused following this and slightly combative. Patient states he is feeling close to normal at this time. Patient is trying to quit alcohol, last drink was around 3 days ago. Patient does have history of 2 seizures previously also with quitting alcohol. - Related Data Home Medications Medication Instructions Recorded Confirmed Naltrexone HCl [Revia] 50 mg PO DAILY 11/09/22 11/09/22 busPIRone HCL [Buspar] 7.5 mg PO BID 11/09/22 11/09/22 guanFACINE HCL [guanFACINE HCL ER] 1 mg PO DAILY 11/09/22 11/09/22 Previous Rx's Medication Instructions Recorded Acetaminophen Tab [Tylenol] 650 mg PO Q6HR PRN tab 09/27/22 Allergies Allergy/AdvReac Type Severity Reaction Status Date / Time adhesive tape Allergy Rash/Hives Verified 11/09/22 05:45 Review of Systems ROS Statement: Those systems with pertinent positive or pertinent negative responses have been documented in the HPI. ROS Other: All systems not noted in ROS Statement are negative. Constitutional: Denies: fever Eyes: Denies: eye pain ENT: Denies: ear pain Respiratory: Denies: cough Cardiovascular: Reports: palpitations. Denies: chest pain Endocrine: Reports: fatigue Gastrointestinal: Reports: nausea. Denies: abdominal pain Past Medical History Additional Past Medical History / Comment(s): Pirthise disease Left hip History of Any Multi-Drug Resistant Organisms: None Reported Past Surgical History: Hernia Repair Additional Past Surgical History / Comment(s): left hip TOTAL REPLACEMENT Past Anesthesia/Blood Transfusion Reactions: No Reported Reaction Past Psychological History: Depression Smoking Status: Current every day smoker Past Alcohol Use History: Abuse, Daily, Heavy Past Drug Use History: Marijuana - Past Family History Father Family Medical History: Coronary Artery Disease (CAD) Mother Family Medical History: Cancer General Exam Limitations: no limitations General appearance: alert, in no apparent distress Head exam: Present: atraumatic Eye exam: Present: normal appearance, PERRL, EOMI ENT exam: Present: other (Tongue abrasion) Neck exam: Present: normal inspection. Absent: tenderness, meningismus Respiratory exam: Present: normal lung sounds bilaterally Cardiovascular Exam: Present: tachycardia Expanded Peripheral pulses: 2+: Radial (R), Radial (L) GI/Abdominal exam: Present: soft. Absent: tenderness Extremities exam: Present: normal inspection Neurological exam: Present: alert, oriented X3, CN II-XII intact. Absent: motor sensory deficit Expanded Neurological exam: Present: protecting the airway Patient oriented to: Present: person, place, time Speech: Present: fluid speech Cranial nerves: EOM's Intact: Normal Sensory exam: Upper Extremity Light Touch: Normal, Lower Extremity Light Touch: Normal Motor strength exam: RUE: 5, LUE: 5, RLE: 5, LLE: 5 Eye Response: (4) open spontaneously Motor Response: (6) obeys commands Verbal Response: (5) oriented Psychiatric exam: Present: normal affect, normal mood Skin exam: Present: normal color Course Vital Signs 11/07/23 11/07/23 11/07/23 18:26 19:24 20:22 Temperature 98.8 F Pulse Rate 173 H 120 H 112 H Respiratory 18 18 18 Rate Blood Pressure 142/102 152/105 148/105 O2 Sat by Pulse 96 98 99 Oximetry EKG Findings - EKG Results: EKG: interpreted by DANIE (Atrial tachycardia with a rate of 163.), normal axis, normal QRS, normal ST/T Medical Decision Making - Medical Decision Making Was pt. sent in by a medical professional or institution (, PA, ECHOCARDIOGRAPHY TECHNOLOGIST, urgent care, hospital, or long term...) When possible be specific @ -No Did you speak to anyone other than the patient for history (EMS, parent, family, police, friend...)? What history was obtained from this source @ -Father is present and helps provide history including history of alcohol use and last drink. Did you review nursing and triage notes (agree or disagree)? Why? @ -I reviewed and agree with nursing and triage notes Were old charts reviewed (outside hosp., previous admission, EMS record, old EKG, old radiological studies, urgent care reports/EKG's, long term records)? Report findings @ -Previous chart reviewed showing previous CT scan of the brain done in 2022. CT scan at that time does not reveal acute abnormality Differential Diagnosis (chest pain, altered mental status, abdominal pain women, abdominal pain men, vaginal bleeding, weakness, fever, dyspnea, syncope, headache, dizziness, GI bleed, back pain, seizure, CVA, palpatations, mental health, musculoskeletal)? @ -Differential Seizure: Recurrent seizure disorder, febrile seizure, alcohol withdrawal, stimulants, meningitis, encephalitis, intercranial hemorrhage, intracranial tumor, stroke, eclampsia, thyrotoxicosis, hypocalcemia, hyponatremia, hypernatremia, hypomagnesemia, psychogenic, this is not meant to be an all-inclusive list. EKG interpreted by me (3pts min.). @ -As above X-rays interpreted by me (1pt min.). @ -None done CT interpreted by me (1pt min.). @ -None done U/S interpreted by me (1pt. min.). @ -None done What testing was considered but not performed or refused? (CT, X-rays, U/S, labs)? Why? @ -CT scan of the brain however this was done 1 year ago What meds were considered but not given or refused? Why? @ -None Did you discuss the management of the patient with other professionals (professionals i.e. , PA, ECHOCARDIOGRAPHY TECHNOLOGIST, lab, RT, psych nurse, rn social work, metallographic technician, teacher, chief media officer, egg caser)? Give summary @ -No Was smoking cessation discussed for >3mins.? @ -No Was critical care preformed (if so, how long)? @ -No Were there social determinants of health that impacted care today? How? (Homelessness, low income, unemployed, alcoholism, drug addiction, transportation, low edu. Level, literacy, decrease access to med. care, nursing home, rehab)? @ -No Was there de-escalation of care discussed even if they declined (Discuss DNR or withdrawal of care, Hospice)? DNR status @ -No What co-morbidities impacted this encounter? (DM, HTN, Smoking, COPD, CAD, Can cer, CVA, ARF, Chemo, Hep., AIDS, mental health diagnosis, sleep apnea, morbid obesity)? @ -History of alcohol abuse recently discontinue Was patient admitted / discharged? Hospital course, mention meds given and route, prescriptions, significant lab abnormalities, going to OR and other pertinent info. @ -Patient presents with alcohol withdrawal seizure. Patient does have some signs and symptoms of alcohol withdrawal. CIWA has improved to 8 and heart rate has improved to 112. Patient is requesting discharge home. Patient will be given an extra dose of Ativan as well as an Ativan to take home. Patient and family updated. Undiagnosed new problem with uncertain prognosis? @ -No Drug Therapy requiring intensive monitoring for toxicity (Heparin, Nitro, Insulin, Cardizem)? @ -No Were any procedures done? @ -No Diagnosis/symptom? @ -Alcohol withdrawal seizure Acute, or Chronic, or Acute on Chronic? @ -Acute Uncomplicated (without systemic symptoms) or Complicated (systemic symptoms)? @ -Default Side effects of treatment? @ -No Exacerbation, Progression, or Severe Exacerbation? @ -No Poses a threat to life or bodily function? How? (Chest pain, [place], CO, pneumonia, PE, COPD, DKA, ARF, appy, cholecystitis, CVA, Diverticulitis, Homicidal, Suicidal, threat to staff... and all critical care pts) @ -No - Lab Data Result diagrams: 11/07/23 18:40 11/07/23 18:40 Lab Results 11/07/23 11/07/23 11/07/23 Range/Units 18:40 18:40 19:15 WBC 15.8 H (3.8-10.6) k/uL RBC 5.50 (4.30-5.90) m/uL Hgb 17.3 (13.0-17.5) gm/dL Hct 53.0 (39.0-53.0) % MCV 96.3 (80.0-100.0) fL MCH 31.4 (25.0-35.0) pg MCHC 32.6 (31.0-37.0) g/dL RDW 14.4 (11.5-15.5) % Plt Count 249 (150-450) k/uL MPV 8.5 Neutrophils % 74 % Lymphocytes % 18 % Monocytes % 6 % Eosinophils % 1 % Basophils % 0 % Neutrophils # 11.6 H (1.3-7.7) k/uL Lymphocytes # 2.8 (1.0-4.8) k/uL Monocytes # 1.0 (0-1.0) k/uL Eosinophils # 0.1 (0-0.7) k/uL Basophils # 0.1 (0-0.2) k/uL Sodium 138 (137-145) mmol/L Potassium 3.7 (3.5-5.1) mmol/L Chloride 95 L (98-107) mmol/L Carbon Dioxide 12 L (22-30) mmol/L Anion Gap 31 mmol/L BUN <2 L (9-20) mg/dL Creatinine 1.09 (0.66-1.25) mg/dL Est GFR (CKD-EPI)AfAm >90 (>60 ml/min/1.73 sqM) Est GFR (CKD-EPI)NonAf >90 (>60 ml/min/1.73 sqM) Glucose 112 H (74-99) mg/dL POC Glucose (mg/dL) 85 (70-110) mg/dL POC Glu Bilingual Sales Consultant ID Jenny Castillo Calcium 11.0 H (8.4-10.2) mg/dL Magnesium 2.7 H (1.6-2.3) mg/dL Total Bilirubin 0.7 (0.2-1.3) mg/dL AST 56 (17-59) U/L ALT 38 (4-49) U/L Alkaline Phosphatase 54 (38-126) U/L Total Protein 8.8 H (6.3-8.2) g/dL Albumin 5.7 H (3.5-5.0) g/dL TSH 2.000 (0.465-4.680) mIU/L Free T4 1.12 (0.78-2.19) ng/dL Serum Alcohol <10 mg/dL Disposition Clinical Impression: Alcohol withdrawal seizure Disposition: HOME SELF-CARE Condition: Stable Instructions (If sedation given, give patient instructions): Recurrent Seizures in Adults (ED) Additional Instructions: Take extra Ativan at home which you encountered in half for a dose tomorrow and a second dose if needed tomorrow evening or the next day. Please do follow-up with your primary care physician in the next 1 or 2 days for recheck. Discontinue alcohol use. Return for increased seizures, weakness, increased heart rate, worsening or changing symptoms or any other concerns. Please consider follow-up with alcohol rehab facility such as [place] Is patient prescribed a controlled substance at d/c from ED?: No Referrals: Hiro Snyder MD [Primary Care Provider] - 1-2 days Forms: AA Meetings [facility] [address] [facility], Outpatient Therapy List, Outpatient Counseling, In Substance Abuse Facilities Time of Disposition: 20:41
[2023-11-07] MEDS: LORazepam 2 MG/ML INJ IV STA ×2 (19:04→20:48)
[2023-11-07] MEDS: SODIUM CHLORIDE 0.9% 1,000 ML IV STA ×2 (19:06→19:28)
[2023-11-07 19:17] LABS: Glucose,Whole Blood 85 mg/dL (70-110)
[2023-11-07 19:29] LABS: Basophils # (A) 0.1 k/uL (0-0.2); Basophils % (A) 0 %; Eosinophils # (A) 0.1 k/uL (0-0.7); Eosinophils % (A) 1 %; HGB 17.3 gm/dL (13.0-17.5); Lymphocytes # (A) 2.8 k/uL (1.0-4.8); Lymphocytes % (A) 18 %; MCH 31.4 pg (25.0-35.0); MCHC 32.6 g/dL (31.0-37.0); MCV 96.3 fL (80.0-100.0); Mean Platelet Volume 8.5; Monocytes % (A) 6 %; Neutrophils # (A) 11.6 k/uL (1.3-7.7); Neutrophils % (A) 74 %; Platelet Count 249 k/uL (150-450); RDW 14.4 % (11.5-15.5); WBC 15.8 k/uL (3.8-10.6)
[2023-11-07 19:46] LABS: AST 56 U/L (17-59); African American GFR (CKD) >90 (>60 ml/min/1.73 sqM); Albumin 5.7 g/dL (3.5-5.0); Alcohol <10 mg/dL; Alkaline Phosphatase 54 U/L (38-126); Anion Gap 31 mmol/L; Blood Urea Nitrogen <2 mg/dL (9-20); Carbon Dioxide 12 mmol/L (22-30); Chloride 95 mmol/L (98-107); Glucose 112 mg/dL (74-99); Magnesium 2.7 mg/dL (1.6-2.3); Non-African American GFR(CKD) >90 (>60 ml/min/1.73 sqM); Potassium 3.7 mmol/L (3.5-5.1); Sodium 138 mmol/L (137-145); Total Bilirubin 0.7 mg/dL (0.2-1.3); Total Protein 8.8 g/dL (6.3-8.2)
[2023-11-07 20:02] LABS: T4, Free (Free Thyroxine) 1.12 ng/dL (0.78-2.19)
[2023-11-07 20:23] LABS: ALT 38 U/L (4-49)
[2023-11-07] MEDS: LORazepam 1 MG TAB PO STA (20:50)
[2023-11-07 21:06] VITALS: BP 152/92; PULSE 116; RESP 16; TEMP 98.2
== END 2023-11-07 21:06 | disposition home or self-care (01) ==
LOC: EC 18:24
CPT/HCPCS: 36415; 80053; 80320; 83735; 84439; 84443; 84481; 85025; 93005; 96361; 96374; 96376; 99285